=== PATIENT | female | born 1955 | race Caucasian/White ===

== ENCOUNTER → 2018-07-20 13:22 | Outpatient (BNVA) | payer MEDICARE, SELFPAY | PROVIDERS: Visit Provider Student in an Organized Health Care Education/Training Program | DX: G56.03 Carpal tunnel syndrome, bilateral upper limbs (principal) | CPT/HCPCS: 99214 ==

== ENCOUNTER 2018-07-25 11:07 | Outpatient (CLI) | payer MEDICARE, SELFPAY ==
[2018-07-25 13:24] LABS: CREATININE 0.73 mg/dL (0.55-1.02)
== END 2018-07-25 11:27 ==
PROVIDERS: Physician Assistant; PCP Family Medicine; Visit Provider Student in an Organized Health Care Education/Training Program
DX: D48.9 Neoplasm of uncertain behavior, unspecified (principal); Z13.89 Encounter for screening for other disorder
CPT/HCPCS: 36415; 82565

== ENCOUNTER 2018-07-28 00:53 | Outpatient (CLI) | payer MEDICARE, SELFPAY ==
[2018-07-28] MEDS: Gadoterate meglumine 20 ML VIAL 19 ML IVP (15:09)
--- NOTE | 2018-07-28 15:30 | DI.MRI_ITS ---
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 There are no priors for comparison. There is a soft tissue mass, which measures 1.8 cm craniocaudad x 1.0 cm AP x 1.4 cm transverse within the index finger. It lies within the anterolateral soft tissues. It abuts the flexor tendon at the level of the distal interphalangeal joint. The flexor tendon is homogeneously of low signal and appears intact. There is enhancement of the mass following contrast administration. The marrow signal is within normal limits. No osseous involvement is seen. No other masses are appreciated in the index finger. The tendons appear intact. IMPRESSION: A 1.8 cm mass in the volar soft tissues of the distal index finger. 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
== END 2018-07-28 01:13 ==
PROVIDERS: PCP Family Medicine; Visit Provider Student in an Organized Health Care Education/Training Program
DX: R22.31 Localized swelling, mass and lump, right upper limb (principal); D48.1 Neoplasm of uncertain behavior of connective and other soft tissue
CPT/HCPCS: 73220

== ENCOUNTER 2018-10-25 12:11 | Day surgery (SDC) | payer MEDICARE, SELFPAY ==
[2018-10-25] VITALS (7 sets, daily range): BP systolic 124–152; BP diastolic 57–90; PULSE 66–74; RESP 14–25; TEMP 36.1–36.6; O2SAT 93–98
[2018-10-25] MEDS: Lactated Ringers 1,000 ML 80 ML IV (12:55)
[2018-10-25] MEDS: Lidocaine 1% Pres-Free 5 ML VIAL (14:36)
--- NOTE | 2018-10-25 15:00 | SOFT_PTH ---
PATIENT: Fadia Beach LOC: [facility] U#:[id number] AGE/SX: 63/F ROOM: RE10/25/[address]: Otto Xie MD : [id number] BED: DIS: 10/25/2018 SPEC #: [id number] RECD: 10/25/18 17:08 STATUS: WALLY REAshwin #: [id number] EDWAR: 10/25/18 15:[address]: Otto Xie DEPT: Surgical Specimen RECD BY: Suyapa Stevens ENTERED: 10/25/18 17:11 SP TYPE: SOFT OTHR DR: Fela Quiroga Tissues: 1 - SOFT TISSUE MISC (INC. LIPOMA) 2 - SOFT TISSUE MISC (INC. LIPOMA) Procedures: GROSS AND MICRO LEVEL 4 Comments: [id number]
[2018-10-25] MEDS: Bupivacaine 0.25% Pres-Free 30 ML VIAL (15:05)
--- NOTE | 2018-10-25 15:33 | PDOC.DSDIS_ITS ---
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 Attending Provider: Otto Xie Primary Care Provider: Fela Quiroga Home Meds and New Rx's Prescriptions: New hydrocodone-acetaminophen 5-325 mg tablet 1 tab PO Q4H PRN (Reason: pain) Qty: 10 RF: 0 ibuprofen 600 mg tablet 600 mg PO TID PRNQty: 90 RF: 3 acetaminophen 500 mg capsule 1,000 mg PO Q8H PRN (Reason: pain) Qty: 90 RF: 0 Continue omeprazole magnesium [Prilosec OTC] 20 MG tablet,delayed release (DR/EC) 20 mg PO DAILY RF: 0 atorvastatin 40 MG tablet 40 mg PO DAILY RF: 0 metformin 1,000 MG tablet 1,000 mg PO DAILY RF: 0 levothyroxine 150 MCG tablet 150 mcg PO DAILY RF: 0 oxybutynin chloride 15 MG tablet extended release 24hr 15 mg PO DAILY RF: 0 citalopram [Celexa] 20 MG tablet 30 mg PO DAILY RF: 0 cholecalciferol (vitamin D3) [Vitamin D3] 5,000 unit Tablet 5,000 unit PO DAILY RF: 0 calcium carb-D3-mag ox-zinc ox [Jaylan Mag Zinc Plus D3] 333 mg-133 unit -133 mg- 5 mg Tablet 1 tab PO DAILY RF: 0 Discharge Instructions Additional Instructions: Activity: Only light activity to the hand. Keep the finger elevated and do not try to move too much in the beginning. Dressings: You should keep the initial dressing on for at least 3 days. The finger dressing may be removed at the same time as the carpal tunnel dressing. Keep it covered until your follow-up. Follow-up: 1 week Stand Alone Forms: Rojas Pan Tunnel Tod Cuellar (SHAYNA) Equipment/Supplies: Sling Activity:: Elevate Remove Dressings/Wound Care:: 72 hours Shower/Bathe:: 72 hours Diet:: Normal Diet Discharge Orders Discharge Orders: Discharge Order (Routine); Ordered 10/25/18 Ordered By: Otto Xie DS: Diagnosis Discharge Diagnosis (1) Giant cell tumor: Status: Acute (2) Carpal tunnel syndrome, bilateral: Status: Acute
--- NOTE | 2018-10-26 08:36 | ROE_ITS ---
REPORT OF OPERATIVE PROCEDURE DATE OF SURGERY October 25, 2018 PREOPERATIVE DIAGNOSES Right carpal tunnel syndrome, right recurrent finger mass, suspected giant cell tumor. POSTOPERATIVE DIAGNOSES Right carpal tunnel syndrome, right recurrent finger mass, suspected giant cell tumor. SURGERY Right endoscopic carpal tunnel release, excisional biopsy of right volar and dorsal index finger mass es. SURGEON Otto Xie M.D. CONSULTING MANAGER Sandra Godinez FINDINGS The transverse carpal ligament was notably tight. This was released with adequate expansion of the tr ansverse carpal ligament. The index finger had two separate lesions, one dorsal and one volar. Each w as excised in whole without having to violate the mass itself. The mass was solid and did appear to b e rather benign as it did not invade any other surrounding structures and came out quite easily. Both specimens were sent to Pathology and they are likely giant cell tumor recurrences. SPECIMENS 1. Right volar index finger mass. 2. Right dorsal index finger mass. ESTIMATED BLOOD LOSS Minimal. COMPLICATIONS None. DISPOSITION The patient was awakened from anesthesia and taken to the PACU in a stable condition. INDICATION FOR PROCEDURE Fadia is a 63-year old who has known bilateral carpal tunnel syndrome. She also has had a previous m ass to the right index finger, which was diagnosed previously as giant cell tumor tendon sheath. This was resected about four years ago; over the last four months it has returned. It has gotten to the p oint where it is stretching the skin causing skin irritation, as well as pain with use of the finger. She has tried conservative treatment options for the carpal tunnel, as well as for the finger. Howev er, these have failed, therefore, I recommended operative intervention. This consisted of an endoscop ic carpal tunnel release, as well as an excisional biopsy of the mass of the index finger. I discusse d the risks of the procedure to include bleeding, infection, pain, stiffness, recurrence, incomplete release, damage to nerves and vessels. Despite these risks, she elected to proceed. PROCEDURE DESCRIPTION Fadia was greeted in the preoperative holding area. Her identity was confirmed and the correct side was identified and marked. The consent was reviewed with the patient and signed. The history and phy sical was updated. The patient was taken back to the Operating Room where she was placed in the supine position. A nonst erile tourniquet was placed high up on the right arm. Prophylactic antibiotics in the form of cefazol in was administered. A timeout was performed for safe surgery. The right arm was then prepped with C hloraPrep and draped and in a standard fashion. The plan was initially for a MAC anesthetic; however, she was quite mobile even under a deep MAC anes thetic per Anesthesia and therefore was converted to a General anesthetic before proceeding for safet y. The surgical site for the endoscopic carpal tunnel released was injected with 1% lidocaine. The index finger had a digital block performed, with 1% lidocaine and 0.25% bupivacaine. I began with the endo scopic carpal tunnel release first. The limb was exsanguinated and the tourniquet was inflated to 275 mmHg. A 1-cm skin incision was made proximal to the distal wrist crease. This was incised sharply through t he skin only. Tenotomy scissors were used to bluntly dissect the soft tissues, leading down to the an tebrachial fascia fibers. These were split with the scissors and elevated with a skin hook. This intr oduced the entry into the carpal tunnel. Dilators were used to identify the carpal tunnel and hooked with a hamate and dilate the tunnel. The hook of the hamate seemed to be quite radial than usual. How ever, this was able to be dilated easily. The synovial elevator was used to elevate off the synovium and attachments to the undersurface of the transverse carpal ligament. Once this was performed the en doscope was inserted into the carpal tunnel. Excellent visualization for the proximal two thirds of t he transverse carpal ligament. There was a band, which seemed to be quite dense towards the distal ex tent. It was hard to visualize that it still was part of the transverse carpal ligament and therefore was not cut initially. The remainder two thirds was cut with excellent separation of transverse carp al fibers. With re-introduction of the scope, we saw that the transverse carpal ligament was well spa jared and the nerve was actually floating toward that space. What was interesting was that there was a crossing band, what appeared to be an almost tendinous origin at the very distal extent of the transv erse carpal ligament. Therefore no further release was performed. Irrigation flowed easily into this space and therefore it was deemed to be fully released. The proximal antebrachial fascia was then dis sected off of the median nerve and off of the overlying skin and this was transected. The wound was t hen irrigated. It was closed with a #4-0 Nylon. We then turned out attention to the finger. Starting with the volar mass, a Lilly-type incision was made overlying the volar mass. Skin flaps w ere raised and the mass was easily identifiable. Working in the tissue plane between the surrounding tissue and the mass, I was able to deliver this mass outside of the finger and work from outside in, detaching this from the underlying flexor tendon sheath. There was no notable attachment to any neuro vascular structures. There were no invasive properties. There was a clear capsule to the mass itself. It was firm and did have the appearance of a giant cell tumor. Once this was resected, it was taken to the back table and measured to be approximately 2 x 1.5 centimeters. It was then sent to Pathology . The wound was then irrigated. The skin was closed loosely with #4-0 Nylon. We then turned our attention to the dorsal skin mass. She had a previous incision from a dorsal finge r mass, so I used this incision over the dorsum of the finger. This was taken down sharply through th e skin only. Once again, blunt dissection was used to identify the mass. I was thinking this might torres ve been a ganglion cyst based on its location. However, it did seem to arise from the radial border of the distal extent of the extensor tendon. It was solid. A nice capsule was appreciated. It was jerica obular and while we were exposing it, we saw there was a second lobe, which was able to be delivered out of the wound. This mass was fully dissected and removed from the wound again without any signs of invasiveness or interaction with the neurovascular bundle. This was also brought to the back table w here it measured nearly 1 cm x about 6 mm. This was also sent to Pathology. The wound was again irrig ated. The skin was closed with two Nylon sutures. The wounds were dressed with Xeroform, followed by Tubegauz dressing over the finger, and gauze and Kerlix and Sal wrap over the wrist. The tourniquet w as deflated after 30 minutes. At the end of the case, all counts were correct.
== END 2018-10-25 16:50 | disposition home or self-care (01) ==
PROVIDERS: PCP Family Medicine; Visit Provider Student in an Organized Health Care Education/Training Program
PROC: 01N54ZZ Release Median Nerve, Percutaneous Endoscopic Approach (ICD-10-PCS; CPT 29848; principal; 2018-10-25 14:00)
PROC: (CPT 26160; 2018-10-25 14:00)
DX: D48.1 Neoplasm of uncertain behavior of connective and other soft tissue (principal); G56.01 Carpal tunnel syndrome, right upper limb
CPT/HCPCS: 26111; 29848; 88305; J0690; J1885; J2405; J3010; L3650

== ENCOUNTER 2018-10-29 09:10 | Outpatient (CLI) | payer MEDICARE, SELFPAY ==
[2018-10-29 10:08] LABS: HCT 39.7 % (36.0-46.0); HGB 13.2 g/dL (12.0-15.5); Mean Corp. HGB Concentration 33.2 g/dL (32.0-36.0); Mean Corpuscular Hemoglobin 27.7 pg (27.0-33.0); Mean Corpuscular Volume 83.4 fL (80-95); Mean Platelet Volume 10.3 fL (8.0-11.0); Platelet Count 298 x1000/uL (130-400); RBC 4.76 m/cumm (4.00-5.20); RBC Distribution Width 13.4 % (11.7-14.6); White Blood Cell Count 7.21 k/cumm (4.4-10.8)
[2018-10-29 10:51] LABS: FREE T4 1.56 ng/dL (0.76-1.46)
[2018-10-29 10:53] LABS: ALT 24 U/L (12-78); AST 17 U/L (15-37); Albumin 3.8 g/dL (3.4-5.0); Alkaline Phosphatase 101 U/L (46-116); Anion Gap 11.1 mmol/L (3-11); BUN 10 mg/dL (7-18); Bilirubin, Total 0.7 mg/dL (0.2-1.0); CO2 25.9 mmol/L (21.0-32.0); CREATININE 0.77 mg/dL (0.55-1.02); Calcium 9.2 mg/dL (8.5-10.1); Chloride 103 mmol/L (98-107); Cholesterol 193 mg/dL (50-200); Glucose 138 mg/dL (70-100); HDL Cholesterol 64 mg/dL (40-60); LDL CHOLESTEROL 98 mg/dL (<100); Potassium 4.5 mmol/L (3.5-5.1); Sodium 140 mmol/L (136-145); TSH 0.05 uIU/mL (0.358-3.74); Total Protein 7.6 g/dL (6.4-8.2); Triglyceride 231 mg/dL (30-150)
[2018-10-31 06:18] LABS: Hemoglobin A1C 7.2 % (4.5-6.2)
== END 2018-10-29 09:30 ==
PROVIDERS: PCP Family Medicine; Visit Provider Family Medicine
DX: E03.9 Hypothyroidism, unspecified (principal); E11.9 Type 2 diabetes mellitus without complications; R53.83 Other fatigue; E78.5 Hyperlipidemia, unspecified
CPT/HCPCS: 36415; 80053; 80061; 83721; 85027; 83036; 84439; 84443

== ENCOUNTER → 2018-11-02 08:26 | Outpatient (BNVA) | payer MEDICARE, SELFPAY | PROVIDERS: PCP Family Medicine; Referring Provider Family Medicine; Visit Provider Student in an Organized Health Care Education/Training Program | DX: D48.1 Neoplasm of uncertain behavior of connective and other soft tissue (principal); G56.03 Carpal tunnel syndrome, bilateral upper limbs; E11.9 Type 2 diabetes mellitus without complications; Z79.84 Long term (current) use of oral hypoglycemic drugs ==

== ENCOUNTER → 2018-11-18 10:12 | Outpatient (BNVA) | payer MEDICARE, SELFPAY | PROVIDERS: PCP Family Medicine; Referring Provider Family Medicine; Visit Provider Student in an Organized Health Care Education/Training Program | DX: D48.9 Neoplasm of uncertain behavior, unspecified (principal); G56.03 Carpal tunnel syndrome, bilateral upper limbs; E11.9 Type 2 diabetes mellitus without complications; Z79.84 Long term (current) use of oral hypoglycemic drugs ==

== ENCOUNTER → 2019-01-16 12:50 | Outpatient (BNVA) | payer MEDICARE, SELFPAY | PROVIDERS: PCP Family Medicine; Referring Provider Family Medicine; Visit Provider Student in an Organized Health Care Education/Training Program | DX: Z47.89 Encounter for other orthopedic aftercare (principal); G56.01 Carpal tunnel syndrome, right upper limb; E11.9 Type 2 diabetes mellitus without complications; Z79.84 Long term (current) use of oral hypoglycemic drugs; D48.7 Neoplasm of uncertain behavior of other specified sites ==

== ENCOUNTER 2019-02-21 10:00 | Outpatient (CLI) | payer MEDICARE, SELFPAY ==
--- NOTE | 2019-02-21 17:00 | DI.RAD_ITS ---
SYMPTOM/DIAGNOSIS: LT LEG PAIN, M79.605, FALL ONE MONTH AGO LEFT KNEE: Three views. No priors. The articular surfaces are well maintained. The bones are intact and normally mineralized. There is a tiny, well corticated osseous fragment medial to the medial femoral condyle likely reflecting old injury. There is a small enthesophyte at the superior aspect of the patella. The soft tissues are unremarkable. IMPRESSION: No acute abnormality. LEFT LEG: Two views. The tibial plateau is included on the xray of the knee performed the same day. No bone or joint abnormality is identified. The soft tissues are unremarkable. IMPRESSION: Negative examination.
== END 2019-02-21 10:20 ==
PROVIDERS: PCP Family Medicine; Visit Provider Nurse Practitioner Family
DX: M79.605 Pain in left leg (principal); M25.562 Pain in left knee
CPT/HCPCS: 73562; 73590

== ENCOUNTER 2019-03-14 10:13 | Emergency (ER) | payer MEDICARE, SELFPAY ==
[2019-03-14 10:21] VITALS: BP 118/72; PULSE 78; RESP 16; TEMP 36.7; O2SAT 95
--- NOTE | 2019-03-14 10:38 | W.ED.GENAD ---
Discharge Plan Disposition Patient Disposition: HOME Condition: Good Discharge Details Chief Complaint: Laceration Clinical Impression: Laceration Primary Care Provider: Fela Quiroga ED Provider: Kody Godfrey Home Meds and New Rx's Prescriptions: No Action Prilosec OTC 20 MG tablet,delayed release (DR/EC) 20 mg PO DAILY RF: 0 atorvastatin 40 MG tablet 40 mg PO DAILY RF: 0 metformin 1,000 MG tablet 1,000 mg PO DAILY RF: 0 levothyroxine 150 MCG tablet 150 mcg PO DAILY RF: 0 oxybutynin chloride 15 MG tablet extended release 24hr 15 mg PO DAILY RF: 0 citalopram [Celexa] 20 MG tablet 30 mg PO DAILY RF: 0 cholecalciferol (vitamin D3) [Vitamin D3] 5,000 unit Tablet 5,000 unit PO DAILY RF: 0 Jaylan Mag Zinc Plus D3 333 mg-133 unit -133 mg-5 mg Tablet 1 tab PO DAILY RF: 0 hydrocodone-acetaminophen 5-325 mg tablet 1 tab PO Q4H PRN (Reason: pain) Qty: 10 RF: 0 ibuprofen 600 mg tablet 600 mg PO TID PRNQty: 90 RF: 3 acetaminophen 500 mg capsule 1,000 mg PO Q8H PRN (Reason: pain) Qty: 90 RF: 0 Discharge Instructions Instructions: Laceration (ED), Care For Your Absorbable Stitches (ED) Additional Instructions: Please leave the dressing on for 24 hours, then you may remove and begin cleaning the wound very gently at least twice a day with soap and water. Do not directly soak the area. Watch for any signs of infection and return if any increasing redness, swelling, pain, drainage. If you notice any worsening of your symptoms, or any new symptoms such as vomiting, diarrhea, fever, chills, shortness of breath, chest pain, numbness, weakness, or fainting , please return immediately to the emergency department for reevaluation. Please follow up with your primary care provider as soon as possible for reassessment and reevaluation. As always, it was a pleasure participating in your medical care today. Referrals: Fela Quiroga [Primary Care Provider] - Medical Decision Making This is a very pleasant 64-year-old female who presents for laceration on her nondominant hand in the webspace between her second and third digit. Small 1 cm laceration was present. Minimal active bleeding, no evidence of tendon involvement. Patient demonstrates excellent flexion extension abduction and abduction of the second and third digit. Normal two-point discrimination distal to the injury site. Tetanus was updated 2 years ago. Significant wound cleaning was performed with copious amounts of chlorhexidine and normal saline as well as vigorous scrubbing. The area was anesthetized with 1% lidocaine without epinephrine. Excellent anesthesia was achieved. 5 simple interrupted sutures were placed with 5-0 chromic gut. Patient tolerated procedure well. Dermabond was placed over the sutures afterwards. The fingers were then taped together to prevent any significant tension by spreading of the fingers. She remains neurovascularly intact post procedure. Patient will be discharged home with close follow-up. We discussed red flags which to return the patient understands. I have extensively reviewed the treatment plan and discharge instructions with the patient. I have addressed all patient concerns at this time. The patient was made aware of what symptoms to monitor for that would warrant a return to the emergency department. Discussed the plan with the patient, they demonstrate verbal understanding and agreement with our assessment and plan at this time. HPI General Date/Time Provider Initiated Documentation: 03/14/19 10:13. HPI Narrative: This is a 64-year-old female with past medical history of giant cell tumor on her right hand which was surgically removed by Dr. Xie, she is right-hand dominant. She presents today with laceration between the webspace of the second and third digit. It occurred roughly an hour ago while she was using a new set of clean knives. Her tetanus is up-to-date and was updated 2 years ago. She denies any associated numbness, tingling or weakness. She denies any other complaints. No other modifying factors. She states that she currently has no pain whatsoever. Related Data Home Medications Medication Instructions Recorded Confirmed citalopram [Celexa] 30 mg PO DAILY 06/12/14 01/16/19 Prilosec OTC 20 mg PO DAILY 12/20/14 01/16/19 atorvastatin 40 mg PO DAILY tab-cap 06/01/18 01/16/19 levothyroxine 150 mcg PO DAILY tab-cap 06/01/18 01/16/19 metformin 1,000 mg PO DAILY tab-cap 06/01/18 01/16/19 oxybutynin chloride 15 mg PO DAILY tab-cap 06/01/18 01/16/19 Jaylan Mag Zinc Plus D3 1 tab PO DAILY 10/25/18 01/16/19 acetaminophen 1,000 mg PO Q8H PRN #90 cap 10/25/18 01/16/19 cholecalciferol (vitamin D3) 5,000 unit PO DAILY 10/25/18 01/16/19 [Vitamin D3] hydrocodone-acetaminophen 1 tab PO Q4H PRN #10 tab 10/25/18 01/16/19 ibuprofen 600 mg PO TID PRN #90 tab 10/25/18 01/16/19 Previous Rx's Medication Instructions Recorded acetaminophen 1,000 mg PO Q8H PRN #90 cap 10/25/18 hydrocodone-acetaminophen 1 tab PO Q4H PRN #10 tab 10/25/18 ibuprofen 600 mg PO TID PRN #90 tab 10/25/18 Allergies Allergy/AdvReac Type Severity Reaction Status Date / Time No Known Drug Allergies Allergy Unverified 03/14/19 10:39 Review of Systems Review of Systems All systems reviewed & are unremarkable except as noted in HPI and below PFSH Medical History Giant cell tumor tendon (Acute) Depression (Chronic) Diabetes (Chronic) GERD (gastroesophageal reflux disease) (Chronic) Hyperlipidemia (Chronic) Hypothyroid (Chronic) Social History Smoking/Tobacco Use Status: Never Drug use: Never Exam Narrative Exam Narrative: 1.Const: Well-nourished, Well-developed, appearing stated age 2.Eyes: PERRL, no conjunctival injection, and symmetrical lids. 3.ENT: Atraumatic external nose and ears. Moist MM. Neck: Symmetric, trachea midline, No thyromegaly. 4.CVS: +S1/S2, No murmurs or gallops. Peripheral pulses 2+ and equal in all extremities. Brisk capillary refill in all extremities. 5.RESP: Unlabored respiratory effort. Clear to auscultation bilaterally. No wheezes rales or rhonchi 6.GI: Soft, Nontender/Nondistended, No hepatosplenomegaly. No guarding or rebound. 7.MSK: Normocephalic/Atraumatic, Extremities w/o deformity or ttp No cyanosis or clubbing, Normal movement of all extremities. Left hand: Symmetrically palpable radial and ulnar pulses. Capillary refill less than 2 seconds to all digits. Intact sensation to light touch of the radial, median and ulnar nerves demonstrated by testing in the dorsal web space of the thumb, the distal palmar aspect of the index finger, and the lateral surface of the fifth finger. 2 point discrimination intact to 5mm (up to 6mm can be normal in digits 3-5) of discrimination in the affected digit. 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 Intact recurrent median nerve as demonstrated by ability to move thumb fully through opposition, abduction and flexion. No snuffbox tenderness. 8.Skin: Warm, Dry. Small 1 cm laceration between the webspace between her second and third digit on the left hand. Exploration reveals no evidence of tendon involvement. Minimal active bleeding. 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 Sensation grossly intact, no focal neurologic deficits. 10.Psych: (AAO) x3. Appropriate mood and affect
== END 2019-03-14 10:50 | disposition home or self-care (01) ==
PROVIDERS: Emergency Provider Student in an Organized Health Care Education/Training Program; PCP Family Medicine
DX: S61.412A Laceration without foreign body of left hand, initial encounter (principal); W26.0XXA Contact with knife, initial encounter
CPT/HCPCS: 12001

== ENCOUNTER 2019-12-29 03:40 | Outpatient (CLI) | payer MEDICARE, SELFPAY ==
--- NOTE | 2019-12-29 | DI.RAD_ITS ---
EXAM: XR CHEST 2V PA LATERAL INDICATION: HX OF POSITIVE PPD, Z87.898. COMPARISON: No exams were available for comparison TECHNIQUE: 2D digital imaging was performed. FINDINGS: Heart size and pulmonary vasculature are within normal limits. There is scarring in the lingula. No focal infiltrates, effusions or pneumothoraces are present. There are degenerative changes seen in the spine. IMPRESSION: No acute pulmonary process.
== END 2019-12-29 04:00 ==
PROVIDERS: PCP Family Medicine; Visit Provider Family Medicine
DX: R76.11 Nonspecific reaction to tuberculin skin test without active tuberculosis (principal)
CPT/HCPCS: 71046

== ENCOUNTER 2020-07-09 00:29 | Outpatient (CLI) | payer MEDICARE, SELFPAY ==
--- NOTE | 2020-07-09 | DI.MAMMO_ITS ---
EXAM: MAMMO SCREENING CLINICAL HISTORY: SCREENING, Z12.31 TECHNIQUE: Mammograms were interpreted according to the usual protocol including computer analysis w [employer] CAD system, tomosynthesis and C-view imaging. COMPARISON: FINDINGS: The breasts are heterogeneously dense. No dominant mass or clumped microcalcification is identified in either breast. Current examination is compared with previous examinations including March 2017 and there is question of increased prominence of a focal area of asymmetric density projected in the supe rior central portion of the left breast MLO view in comparison with previous studies. Additional martha mographic views of this area are requested to include MLO and CC spot compression view of the left br east. IMPRESSION: Additional mammographic views of the left breast requested as described above. Breast ultrasound may be indicated as well depending on the results of the additional mammographic views. BI-RADS Cat 0 - Assessment Incomplete: Need additional imaging evaluation Breast Density - Category C - Heterogeneously dense
== END 2020-07-09 00:49 ==
PROVIDERS: PCP Family Medicine; Visit Provider Family Medicine
DX: Z12.31 Encounter for screening mammogram for malignant neoplasm of breast (principal); R92.2 Inconclusive mammogram
CPT/HCPCS: 77063; 77067

== ENCOUNTER 2020-07-12 04:06 | Outpatient (CLI) | payer MEDICARE, SELFPAY ==
--- NOTE | 2020-07-12 | DI.MAMMO_ITS ---
EXAM: MG MAMMO SCREEN CALL BACK UNI CLINICAL HISTORY: F/U MAMMO, ? INCREASED PROMINENCE ASYMMETRIC DENSITY SUPER CENT LT BREAST TECHNIQUE: Mammograms were interpreted according to the usual protocol including computer analysis w [employer] CAD system, tomosynthesis and C-view imaging. COMPARISON: FINDINGS: Additional mammographic views of the left breast and left breast ultrasound are interpreted conjuncti on. These examinations were obtained evaluate area of asymmetric density in the upper outer quadrant of the left breast seen on recent mammogram. Additional mammographic views fail to show a discrete mass. Breast ultrasound shows no evidence of a mass or cyst in this region. IMPRESSION: No specific evidence of malignancy at this time. Knee follow-up unilateral left breast mammogram re quested in 6 months. BI-RADS Category 3 - 6 month - Probably Benign Finding: Recommend follow-up mammography in 6 months Breast Density - Category C - Heterogeneously dense
== END 2020-07-12 04:26 ==
PROVIDERS: PCP Family Medicine; Visit Provider Family Medicine
DX: R92.8 Other abnormal and inconclusive findings on diagnostic imaging of breast (principal); R92.2 Inconclusive mammogram
CPT/HCPCS: 76642; 77063; 77067

== ENCOUNTER → 2020-08-16 10:00 | Outpatient (BNVA) | payer MEDICARE, SELFPAY | PROVIDERS: PCP Family Medicine; Referring Provider Family Medicine; Visit Provider Physical Therapy Assistant | DX: R69 Illness, unspecified (principal) ==

== ENCOUNTER 2020-12-09 16:03 | Inpatient (IN) | payer MEDICARE, SELFPAY ==
[2020-12-09] VITALS (38 sets, daily range): BP systolic 108–130; BP diastolic 53–69; PULSE 59–68; RESP 12–22; TEMP 36.4; O2SAT 92–99
--- NOTE | 2020-12-09 16:00 | RT.EKG_ITS ---
APPROVED REPORT Exam: Resting ECG Patient Location: E HR:65 bpm ECG Measurements Heart Rate 65 AXIS NV 232 P 70 QRSd 92 QRS 53 QT [id number] T [id number] QTc 0 Conclusion Sinus rhythm...normal P axis, V-rate 60- 99 Prolonged NV interval...NV >220, V-rate 50- 90 Low voltage, precordial leads...precordial leads <1.0mV I have reviewed and interpreted ECG and agree with software generated interpretation.
--- NOTE | 2020-12-09 16:15 | DI.RAD_ITS ---
EXAM: XR PORTABLE CHEST AP INDICATION: overdose. COMPARISON: CR XR CHEST 2V PA LATERAL from 12/29/2019 TECHNIQUE: 2D digital imaging was performed. FINDINGS: The exam is limited by poor pulmonary inflation. The heart size is within normal limits for projecti on. Leads overlie the chest. There are no gross infiltrates. No effusions are seen. There is no e vidence of pneumothorax. IMPRESSION: Limited exam due to poor pulmonary inflation. No acute abnormality. DATA REPOSITORY: RADIATION DOSE DELIVERED:
--- NOTE | 2020-12-09 16:15 | RT.EKG_ITS ---
APPROVED REPORT Exam: Resting ECG Patient Location: E HR:61 bpm ECG Measurements Heart Rate 61 AXIS NH 226 P 63 QRSd 92 QRS 53 QT [id number] T [id number] QTc 0 Conclusion Sinus rhythm...normal P axis, V-rate 60- 99 Prolonged NH interval...NH >220, V-rate 50- 90 Low voltage, precordial leads...precordial leads <1.0mV I have reviewed and interpreted ECG and agree with software generated interpretation.
[2020-12-09 16:29] LABS: BE -3 mmol/L (-2-3); HCO3 24 mmol/L (22-26); pCO2 45 mmHg (35-45); pH 7.33 (7.35-7.45); pO2 93 mmHg (80-105); sO2 95 % (95-98); tCO2 22 mmol/L (23-27)
--- NOTE | 2020-12-09 16:30 | DI.RAD_ITS ---
EXAM: XR PELVIS AP INDICATION: ams. COMPARISON: No exams were available for comparison TECHNIQUE: 2D digital imaging was performed. FINDINGS: The exam is limited by portable technique and patient body habitus. There is no gross evidence of fr acture. No hip dislocation is seen. The SI joints and pubic symphysis are not widened. Calcified f ibroids are noted. The bowel gas pattern is unremarkable. IMPRESSION: Limited exam. No gross evidence of an acute abnormality. DATA REPOSITORY: RADIATION DOSE DELIVERED:
--- NOTE | 2020-12-09 16:32 | DI.CT_ITS ---
EXAM: CT HEAD CERVICAL SPINE WO CLINICAL HISTORY: ams. TECHNIQUE: Imaging Protocol: Axial computed tomography images with coronal and sagittal reformatted images were created and reviewed COMPARISON: No exams were available for comparison FINDINGS: Head CT Ventricles and Extra axial spaces: Normal in size and morphology for the patient's age. Hemorrhage: None. Cerebral parenchyma: Normal. Midline shift: None. Brainstem/Cerebellum: Normal. Calvarium: Normal. Visualized Paranasal sinuses/Mastoids: Clear. Soft tissues: Small amount of air seen in the soft tissues anterior to the right maxillary sinus. No adjacent fracture or drainable collection is seen. Cervical Spine CT BONES: Vertebral body heights are maintained. Alignment is normal. There is no evidence of acute frac ture. Degenerative disc changes and facet degenerative changes are seen . SOFT TISSUES: No paraspinal hematoma. The airway appears intact. Soft tissue attenuation mass in the left parotid gland measuring 2.2 x 1.6 cm. Findings could represent a hematoma versus neoplasm. Cl inical correlation is recommended. No adenopathy is seen. The thyroid has been resected. No pneumothorax is seen at the lung apices. IMPRESSION: Head CT: No acute intracranial abnormality. Soft tissue air in the right cheek. No hematoma or drai nable collection. No adjacent fracture. C-spine CT: Degenerative changes, no fracture. 2.2 centimeter left parotid mass. Biopsy could be co nsidered. RADIATION DOSE DELIVERED: LINK-TO-SR Total DLP DATA REPOSITORY: All CT scans at this facility are submitted to the National Radiology Data Registry (NRDR) Dose Index Registry (DIR) with the [employer] (ACR). RADIATION OPTIMIZATION: All CT scans at this facility use at least one of these dose optimization te chniques: automated exposure control; mA and/or kV adjustment per patient size (includes targeted exa ms where dose is matched to clinical indication); or iterative reconstruction.
[2020-12-09 16:33] LABS: FIO2L 2 L; Site Right Radial
--- NOTE | 2020-12-09 16:39 | NUR.NOTE ---
Nursing Note: unable to fully assess behavioral assessment due to patient being somlonent & asleep. Will answer questions when encouraged
[2020-12-09 16:41] LABS: Abs Immature Grans 0.01 10^3/uL (0.0-0.06); Absolute Basophil Count 0.03 10^3/uL (0.0-0.2); Absolute Eosinophil Count 0.07 10^3/uL (0.0-0.7); Absolute Lymphocyte Count 1.63 10^3/uL (1.2-3.4); Absolute Monocyte Count 0.35 10^3/uL (0.1-0.8); Basophils % 0.5; Eosinophils % 1.2; HCT 40.5 % (36.0-46.0); Immature Grans % 0.2; Lymphocytes % 27.7; MCH 27.6 pg (27.0-33.0); MCHC 32.1 % (32.0-36.0); MPV 10.1 fL (8.0-11.0); Monocytes % 5.9; Neutrophils % 64.5; Nucleated RBC 0 %; Platelet Count 245 10^3/uL (130-400); RBC 4.71 10^6/uL (3.93-5.22); RDW 13.4 % (11.7-14.6); RDW-SD 42.2 fL; WBC 5.89 10^3/uL (4.4-10.8)
[2020-12-09] MEDS: Normal Saline 1,000 ML 1000 ML IV (16:49)
--- NOTE | 2020-12-09 16:49 | ED.GENADUL_ITS ---
Discharge Plan Discharge Details Chief Complaint: OD/Poison Admit Date/Time: 12/09/20 18:34 Admit Provider: Albaro Liu Attending Provider: Albaro Liu Primary Care Provider: Fela Quiroga ED Provider: Suyapa Cat Medical Decision Making <MARY GRACE Malcolm - Last Filed: 12/09/20 19:13> CT brain and cervical spine do not show acute pathology, unlikely subdural hematoma Suspect intoxicated from trazodone and Ativan consumption Maintaining airway, oxygenation 98% on room air, no indication for intubation at this time, GCS 13 initially, at time of reevaluation, GCS 15 Full CODE STATUS per CT head and cervical spine interpreted by virtual radiology Chest x-ray and pelvis do not show acute pathology per radiology interpretation I reviewed Poison control was consulted by my attending physician, Dr. Aguilar and patient will need 8 hours of monitoring Empirically given 2 g of magnesium with normal-appearing EKG, concern for prolongation of QTC Hypokalemia, 3.1, given 20 mEq of IV potassium out of concern for swallowing safety Patient agreeable to admission at this time, will be maintained on suicide watch this was an attempt to harm self, patient confirms Case discussed with and examined by my attending physician, Dr. Yusuf Case discussed with and admitted by Dr. Liu, hospitalist Differential Diagnosis Differential Diagnosis: Drug overdose, suicide attempt, toxic metabolic encephalopathy, subdural he Medical Records Medical records reviewed: Yes I reviewed the patient's medical records. Lab Data Lab results reviewed: Yes I reviewed the patient's lab results. <Brianna Aguilar DO - Last Filed: 12/09/20 22:31> Note not completed by me. I have seen and examined this patient. I discussed case and reviewed note with the PA and I agree with plan and note as documented. HPI <MARY GRACE Malcolm - Last Filed: 12/09/20 19:13> This 65-year-old female presents with reported intentional overdose. Patient has reportedly been quite depressed over the course of the past week.Stated Complaint: OD/Poison found patient in the past have, sitting upright and not submerged in water very sleepy. He called 911. He found 2 bottles on the ground, 1 for trazodone 150 mg but had 90 tablets 1 week for Ativan, half milligram tablets, 28. He is unsure as to how much medication was in the bottle. He did the patient was last known well 2 hours prior to arrival. He denies any known injuries. He states she was unable to get her out of the bathtub. He denies prior history of suicide attempt. Patient denies any pain complaints. She does admit that she was trying to harm herself. She does state that she check this with medication when asked. She denies any additional medication use today. She is a poor historian secondary to encephalopathy, likely toxic. I did obtain some history from medics and the patient's as patients with not able to give a comprehensive history. He denies any anticoagulation. Blood sugar per EMS was normal . General Date/Time Provider Initiated Documentation: 12/09/20 16:15 . Related Data Home Medications Medication Instructions Recorded Confirmed atorvastatin 40 mg PO DAILY tab-cap 06/01/18 12/09/20 levothyroxine 150 mcg PO DAILY tab-cap 06/01/18 12/09/20 metformin 1,000 mg PO DAILY tab-cap 06/01/18 12/09/20 oxybutynin chloride 15 mg PO DAILY tab-cap 06/01/18 12/09/20 Jaylan Mag Zinc Plus D3 1 tab PO DAILY 10/25/18 12/09/20 acetaminophen 1,000 mg PO Q8H PRN #90 cap 10/25/18 12/09/20 cholecalciferol (vitamin D3) 5,000 unit PO DAILY 10/25/18 12/09/20 [Vitamin D3] ibuprofen 600 mg PO TID PRN #90 tab 10/25/18 12/09/20 escitalopram oxalate 20 mg tablet 30 mg PO DAILY tab 07/02/20 12/09/20 omeprazole 20 mg PO DAILY 12/09/20 12/09/20 Previous Rx's Medication Instructions Recorded acetaminophen 1,000 mg PO Q8H PRN #90 cap 10/25/18 ibuprofen 600 mg PO TID PRN #90 tab 10/25/18 Allergies Allergy/AdvReac Type Severity Reaction Status Date / Time No Known Drug Allergies Allergy Unverified 12/09/20 16:13 General Stated Complaint: OD/Poison MARJ: 2 <Brianna Aguilar DO - Last Filed: 12/09/20 22:31> This 65-year-old female presents with reported intentional overdose. Patient has reportedly been quite depressed over the course of the past week.Stated Complaint: OD/Poison found patient in the past have, sitting upright and not submerged in water very sleepy. He called 911. He found 2 bottles on the ground, 1 for trazodone 150 mg but had 90 tablets 1 week for Ativan, half milligram tablets, 28. He is unsure as to how much medication was in the bottle. He did the patient was last known well 2 hours prior to arrival. He denies any known injuries. He states she was unable to get her out of the bathtub. He denies prior history of suicide attempt. Patient denies any pain complaints. She does admit that she was trying to harm herself. She does state that she check this with medication when asked. She denies any additional medication use today. She is a poor historian secondary to encephalopathy, likely toxic. I did obtain some history from medics and the patient's as patients with not able to give a comprehensive history. He denies any anticoagulation. Blood sugar per EMS was normal . 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 Hyperlipidemia Hypothyroid Insomnia Multinodular goiter Obesity Type 2 diabetes mellitus Social History Smoking/Tobacco Use Status: Never Smoking risk assessment performed?: Yes Drug use: Never Current gender identity: female Additional Social history: unable to assess Exam <MARY GRACE Malcolm - Last Filed: 12/09/20 19:13> Const General: lethargic HENMT Head: normal to inspection Eyes Pupils: PERRL Neck Other: No visible evidence of trauma Chest Chest: normal inspection of the chest Resp Effort & Inspection: normal respiratory effort Auscultation: clear to auscultation bilaterally Other: Lungs clear to auscultation bilaterally, no crepitus Cardio Rate: regular rate Rhythm: regular rhythm GI Inspection: normal to inspection Other: No tenderness with palpation in all 4, Skin General skin exam: no rashes or lesions noted Neuro General: patient alert Cranial Nerves: CN's II-XI intact bilaterally and PERRL Pupils: Normal pupillary reactivity/response: bilateral Extrem General: normal to inspection Psych Appearance: disheveled Mental Status: other Speech and Movement: slurred speech Thought Content: suicidality Course <MARY GRACE Malcolm - Last Filed: 12/09/20 19:13> Vital Signs Vital signs: Vital Signs Temperature 36.4 C L 12/09/20 16:05 Pulse 66 12/09/20 16:05 Respiratory Rate 15 12/09/20 16:05 Blood Pressure 121/61 12/09/20 16:05 Pulse Oximetry 99 12/09/20 16:05 Temperature 36.4 C L 12/09/20 16:05 Temperature Source Tympanic 12/09/20 16:05 Pulse 66 12/09/20 16:05 Respiratory Rate 13 12/09/20 16:10 Respiratory Effort Non-Labored 12/09/20 16:10 Respiratory Depth Normal 12/09/20 16:10 Respiratory Pattern Normal 12/09/20 16:10 Blood Pressure 121/61 12/09/20 16:05 Pulse Oximetry 98 12/09/20 16:41 Oxygen Delivery Method Nasal Cannula 12/09/20 16:41 Oxygen Flow Rate 2 12/09/20 16:41 End Tidal Co2 36 12/09/20 16:05 Lab/Test Results Lab/Test Results: Laboratory Tests Range/Units 12/09/20 12/09/20 12/09/20 16:23 16:30 16:30 WBC (4.4-10.8) 10^3/uL 5.89 RBC (3.93-5.22) 10^6/uL 4.71 Hgb (11.2-15.7) g/dL 13.0 Hct (36.0-46.0) % 40.5 MCV (80-95) fL 86.0 MCH (27.0-33.0) pg 27.6 MCHC (32.0-36.0) % 32.1 RDW (11.7-14.6) % 13.4 Plt Count (130-400) 10^3/uL 245 MPV (8.0-11.0) fL 10.1 Immature Gran % 0.2 Neutrophils % 64.5 Lymphocytes % 27.7 Monocytes % 5.9 Eosinophils % 1.2 Basophils % 0.5 Nucleated RBC % % 0 Absolute Neutrophils (1.2-6.7) 10^3/uL 3.80 Absolute Lymphocytes (1.2-3.4) 10^3/uL 1.63 Absolute Monocytes (0.1-0.8) 10^3/uL 0.35 Absolute Eosinophils (0.0-0.7) 10^3/uL 0.07 Absolute Basophils (0.0-0.2) 10^3/uL 0.03 ABG Sample Site Right radial ABG pH (7.35-7.45) 7.33 L ABG pCO2 (35-45) mmHg 45 ABG pO2 (80-105) mmHg 93 ABG HCO3 (22-26) mmol/L 24 ABG Total CO2 (23-27) mmol/L 22 L ABG O2 Saturation (95-98) % 95 ABG Base Excess (-2-3) mmol/L -3 L Oxygen Liter Flow L 2 Sodium Cancelled Potassium Cancelled Chloride Cancelled Carbon Dioxide Cancelled Anion Gap Cancelled BUN Cancelled Creatinine Cancelled Estimated GFR/1.73 m2 Cancelled Glucose Cancelled Calcium Cancelled Total Bilirubin Cancelled AST Cancelled ALT Cancelled Alkaline Phosphatase Cancelled Total Protein Cancelled Albumin Cancelled
[2020-12-09] MEDS: MAGNESIUM SULFATE 2 GM/50 ML BAG IVPB (16:50)
[2020-12-09 16:59] LABS: Source Nasopharynx
--- NOTE | 2020-12-09 17:00 | RESPIRATORY ---
Rt called to ER in concerns to OD patient found in bathtub full of water, arrived on 2L NC. RT set up suction and placed patient on NC with CO2 monitoring. Patient very sleepy but easy to arouse when spoken to. ABG pulled per DR request, results 7.33/45/93/24 on 2L NC. RT stayed to assist team for about 30-45mins then Dr was ok with RT leaving as patient was stable. Before RT left, patient was titrated to 1L NC per ABG and nursing was questioned if fine. RT left and ER was going to call if airway status changed in patient.
--- NOTE | 2020-12-09 17:04 | PDOC.CMSAFED ---
- If Service Date Differs Date of service: 12/09/20 Time of Service: 17:04 Care Management Safety Plan Chief Complaint: Fadia is a 65 year old female who resides in [place] with her , Caleb. Chart review reveals Fadia was found by her in the bathtub at home with empty bottles of trazodone and lorazepam nearby. Four small bottles of champagne were also found empty in the bedroom. dialed 9-1-1 and Fadia was subsequently transported to [facility] via EMS. Fadia reportedly has no history of suicide attempts. reports to ED provider that she has been quite depressed over the course of the past week. Fadia also admits to ED provider that she intended to hurt herself by taking the overdose of medication. CM will respond to ED to assess patient after patient has been medically cleared and assessed by screener. If screener deems patient meets criteria for psychiatric stabilization CM will facilitate interdepartmental huddle with [facility] screener for safety planning considerations and meet with patient to review [facility] policy and safety plan, establish individual wishes for treatment and maintain patient rights. In the interim; please note safety plan below to guide patient care while awaiting further assessment in the ED. SAFETY PLAN: 1. Will remain on suicide precautions and in paper clothes. 2. Will remain in room under direct supervision of one-on-one staff at all times provided by CPS[employer], TABLE AND DESK FINISHER, MIG WELDER platform worker. 3. May have paper cups, plates, finger foods as well as a cardboard spoon with which to eat meals. 4. Follow [facility] Management of the Admitted Behavioral Health Patient policy. 5. Comfort bath system only. 6. No personal belongings 7. No visitors per [facility] Covid policy. 8. No phone privileges at this time. 9. Due to VOLUNTARY status, if patient wishes to leave [facility], staff will contact [facility] Crisis Screener ([phone]) and On-Call Extension Forester ([phone]) as soon as possible. In the event of elopement, notify [facility] Police ([phone]). If deemed appropriate for inpatient psychiatric care, safety plan will be established with patient, and care team, to adhere to patient goals, identify restrictions based on behavioral status, address nutrition, and determine allowed personal belongings, tools for hygiene and personal care. As well plan will determine level of activity including ambulation, level of supervision, visitors, and determine privileges based on level of acuity, behaviors and level of engagement by patient.
[2020-12-09 17:09] LABS: Salicylate < 2.8 mg/dL (2.8-20.0)
[2020-12-09 17:10] LABS: ALT 30 U/L (14-59); AST 18 U/L (15-37); Alkaline Phosphatase 90 U/L (46-116); Anion Gap 9.6 mmol/L (3-11); BUN 11 mg/dL (7-18); Bilirubin, Total 0.3 mg/dL (0.2-1.0); CO2 26.4 mmol/L (21.0-32.0); CREATININE 0.76 mg/dL (0.55-1.02); Calcium 8.5 mg/dL (8.5-10.1); Chloride 101 mmol/L (98-107); ETHANOL BLOOD 73.5 mg/dL (<3); Glucose 118 mg/dL (74-106); Magnesium 1.8 mg/dL (1.8-2.4); Potassium 3.1 mmol/L (3.5-5.1); Sodium 137 mmol/L (136-145); Total Protein 7.6 g/dL (6.4-8.2); Troponin I < 0.05 ng/mL (<0.06)
[2020-12-09 17:11] LABS: Acetaminophen < 2 ug/mL (10-30)
--- NOTE | 2020-12-09 17:16 | PDOC.CMSAFED ---
- If Service Date Differs Date of service: 12/09/20 Time of Service: 17:21 Care Management Safety Plan Status: Voluntary Chief Complaint: Suspected intentional overdose. History of depression, insomnia. Once medically cleared Fadia will be assessed by screener. If screener deems patient meets criteria for psychiatric stabilization CM will facilitate interdepartmental huddle with [facility] screener for safety planning considerations and meet with patient to review [facility] policy and safety plan, establish individual wishes for treatment and maintain patient rights. At this time, Fadia is not able to engage per documentation. In the interim; please note safety plan below to guide patient care while awaiting further assessment in the ED. SAFETY PLAN: 1. Will remain on suicide precautions and in paper clothes. 2. Will remain in room under direct supervision of one-on-one staff at all times provided by DANIEL, OCEANOLOGIST ferryboat operator. 3. May have paper cups, plates, finger foods as well as a cardboard spoon with which to eat meals. 4. Follow [facility] Management of the Admitted Behavioral Health Patient policy. 5. Comfort bath system only. 6. No personal belongings 7. No visitors. 8. Phone contact limited to legal contact at this time. 9. Due to VOLUNTARY status, if patient wishes to leave [facility], staff will contact [facility] Crisis Screener ([phone]) and On-Call Nut Roaster ([phone]) as soon as possible. In the event of elopement, notify [facility] Police ([phone]). If deemed appropriate for inpatient psychiatric care, safety plan will be established with patient, and care team, to adhere to patient goals, identify restrictions based on behavioral status, address nutrition, and determine allowed personal belongings, tools for hygiene and personal care. Plan will determine level of activity including ambulation, level of supervision, visitors, and determine privileges based on level of acuity, behaviors and patient's level of engagement.
--- NOTE | 2020-12-09 17:35 | DI.VRAD_ITS ---
PROCEDURE INFORMATION: Exam: Portable XR Chest, 1 View Exam date and time: 12/09/2020 5:23 PM Age: 65 years old Clinical indication: Condition or disease; Other: Overdose TECHNIQUE: Imaging protocol: Portable XR of the chest Views: 1 view. COMPARISON: CR XR CHEST 2V PA LATERAL 12/29/2019 8:30 AM FINDINGS: Lungs: There is a poor inspiratory effort. There is mild pulmonary vascular congestion. Pleural space: Unremarkable. No pleural effusion. No pneumothorax. Heart/Mediastinum: Unremarkable. No cardiomegaly. Bones/joints: There are degenerative changes of the thoracic spine. IMPRESSION: Poor inspiratory effort. Mild pulmonary vascular congestion. Osseous findings as above. Dictated and Authenticated by: Varinder Haynes MD. Ordering:ARTURO Dale MD
--- NOTE | 2020-12-09 17:36 | DI.VRAD_ITS ---
PROCEDURE INFORMATION: Exam: Portable XR Pelvis Exam date and time: 12/09/2020 5:23 PM Age: 65 years old Clinical indication: Injury or trauma; Blunt trauma (contusions or hematomas); Bilateral; Pelvic region; Patient HX: ? Fall, AMS TECHNIQUE: Imaging protocol: Portable XR pelvis. Views: 1 or 2 view. COMPARISON: CR RT HIP COMPLETE AP PELVIS 11/22/2014 12:01 PM FINDINGS: Bones/joints: There is no gross evidence of a fracture. Soft tissues: Unremarkable. Other findings: The study is limited due to patient body habitus. There are calcified uterine leiomyoma. IMPRESSION: Limited study secondary to patient body habitus. No gross evidence of a fracture. Calcified uterine leiomyoma. Dictated and Authenticated by: Varinder Haynes MD. Ordering:ARTURO Dale MD
--- NOTE | 2020-12-09 17:36 | DI.VRAD_ITS ---
PROCEDURE INFORMATION: Exam: CT Head Without Contrast Exam date and time: 12/09/2020 5:09 PM Age: 65 years old Clinical indication: Injury or trauma; Blunt trauma (contusions or hematomas); Patient HX: AMS, ? fall TECHNIQUE: Imaging protocol: Computed tomography of the head without contrast. COMPARISON: No relevant prior studies available. FINDINGS: Brain: Normal. No hemorrhage. Unremarkable white matter. No mass effect. Cerebral ventricles: No ventriculomegaly. Bones/joints: See Soft tissues finding. Paranasal sinuses: Visualized sinuses are unremarkable. No fluid levels. Mastoid air cells: Visualized mastoid air cells are well aerated. Soft tissues: Soft tissue emphysema in the right cheek of unclear etiology. Occult fracture is not excluded. IMPRESSION: 1. No intracranial hemorrhage or skull fracture. 2. Soft tissue emphysema in the right cheek of unclear etiology. Occult fracture is not excluded. PROCEDURE INFORMATION: Exam: CT Cervical Spine Without Contrast Exam date and time: 12/09/2020 5:09 PM Age: 65 years old Clinical indication: Injury or trauma; Blunt trauma (contusions or hematomas); Patient HX: AMS, ? fall TECHNIQUE: Imaging protocol: Computed tomography images of the cervical spine without contrast. COMPARISON: No relevant prior studies available. FINDINGS: Bones/joints: Schmorl's nodes in the endplates at C5-C6 and C6-C7. Acuity undetermined. Endplate spurring at C5-C6. No vertebral body compression. Normal vertebral body alignment. Normal facets. Normal odontoid process. Normal C1 arch. Discs/Spinal canal/Neural foramina: Moderate bulges at C5-C6 and C6-C7. Submandibular/Parotid glands: Left parotid mass measuring 2.2 cm. Consider sampling. Thyroid: Thyroidectomy. Lungs: Lung apices are normal. Soft tissues: Unremarkable. IMPRESSION: 1. Schmorl's nodes in the endplates at C5-C6 and C6-C7. Acuity undetermined. 2. Degenerative changes. 3. Left parotid mass which should be sampled. Dictated and Authenticated by: Kat Bonds MD. Ordering:ARTURO Dale MD
[2020-12-09 18:02] LABS: COVID-19 PCR Negative (Negative); Influenza A PCR Negative (Negative); Influenza B PCR Negative (Negative); RSV PCR Negative (Negative)
--- NOTE | 2020-12-09 18:18 | HPE_ITS ---
Date of service: 12/09/20 Time of Service: 18:18 Assessment and Plan Assessment and plan (1) OD (overdose of drug): Status: Acute Assessment and plan: Drug OD with intent to harm. Medical issues at pres ent entail sedation (improving), mild hypoventialtion on initial presentation, no doubt secondary to sedatives, and mild hypokalemia of unknown etiology, all insetting of alchohol intoxication (alcohol does not appear to be a chronic problem, as per my interview). Will continue to monitor clinically, and on tely; replace potassium, and await mental health eval when drugs have cleared. Will maintain suicide precautions. History of Present Illness History of Present Illness Chief Complaint: drug OD Narrative: 65 female with h/o depression. Apparently increasing depression over past week, we do not have details on any precipitating factors. found her locked in bathroom this afternoon, broke down door, found her oibtunded, bfrought to ER. It transpired that she took OD of Ativan and Trazadone. In ER initially stuporous, has since become more alert, telling us she intended to harm herself. W/U of note for negative head CT, EtOH 73 (full UDS pending), EKG with difuse TW flattening, with K 3.1 (note that QTc is incorrectly calculated, but is normal to my read). ABG demonstrates mild hypoventilation, with pH 7.33 and pCO2 45, pO2 93. She has received Mg SO4 (empirically, Mg 1.8) and is ordered for K replacement. She is admitted for further management. She asks me about going home. I advise she will first need eval by , and this will not be possible until sensorium fully cleared. I further advise that medically this would in any case be inadvisable at present. She is agreeable to staying. 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 Hyperlipidemia Hypothyroid Insomnia Multinodular goiter Obesity Type 2 diabetes mellitus Social History Smoking/Tobacco Use Status: Never Smoking risk assessment performed?: Yes Drug use: Never Additional Social history: unable to assess Meds Home Medications and Allergies Home Medications Medication Instructions Recorded Confirmed Type atorvastatin 40 mg PO DAILY tab-cap 06/01/18 12/09/20 History levothyroxine 150 mcg PO DAILY tab-cap 06/01/18 12/09/20 History metformin 1,000 mg PO DAILY tab-cap 06/01/18 12/09/20 History oxybutynin chloride 15 mg PO DAILY tab-cap 06/01/18 12/09/20 History Jaylan Mag Zinc Plus D3 1 tab PO DAILY 10/25/18 12/09/20 History acetaminophen 1,000 mg PO Q8H PRN #90 cap 10/25/18 12/09/20 Rx cholecalciferol (vitamin D3) 5,000 unit PO DAILY 10/25/18 12/09/20 History [Vitamin D3] ibuprofen 600 mg PO TID PRN #90 tab 10/25/18 12/09/20 Rx escitalopram oxalate 20 mg tablet 30 mg PO DAILY tab 07/02/20 12/09/20 History omeprazole 20 mg PO DAILY 12/09/20 12/09/20 History Allergies Allergy/AdvReac Type Severity Reaction Status Date / Time No Known Drug Allergies Allergy Unverified 12/09/20 16:13 Exam Narrative Exam Narrative: 113/60, 63, 36.4, 15, 92-95% RA. HEENT atraumatic; neck supple; lunhgs diminished effort, grossly clear; heart RRR w/o MRG; abdomen +BS soft and NT; extremities w/o edema; neuro somewhat sleepy but easily arouses to voice and converses lucidly, albeit with flat affect; moves all 4s Results Labs Result diagrams: 12/09/20 16:30 12/09/20 16:30 Labs: Laboratory Results - last 24 hr 12/09/20 12/09/20 12/09/20 16:23 16:30 16:30 WBC RBC Hgb Hct MCV MCH MCHC RDW Plt Count MPV Immature Gran % Neutrophils % Lymphocytes % Monocytes % Eosinophils % Basophils % Nucleated RBC % Absolute Neutrophils Absolute Lymphocytes Absolute Monocytes Absolute Eosinophils Absolute Basophils ABG Sample Site Right radial ABG pH 7.33 L ABG pCO2 45 ABG pO2 93 ABG HCO3 24 ABG Total CO2 22 L ABG O2 Saturation 95 ABG Base Excess -3 L Oxygen Liter Flow 2 Sodium 137 Potassium 3.1 L Chloride 101 Carbon Dioxide 26.4 Anion Gap 9.6 BUN 11 Creatinine 0.76 Estimated GFR/1.73 m2 >= 60.00 Glucose 118 H Calcium 8.5 Magnesium 1.8 Total Bilirubin 0.3 AST 18 ALT 30 Alkaline Phosphatase 90 Troponin I < 0.05 Total Protein 7.6 Albumin 4.0 Salicylates < 2.8 Acetaminophen < 2 Ethyl Alcohol 73.5 COVID-19 Source SARS-CoV-2 (PCR) Influenza Type A (PCR) Influenza Type B (PCR) RSV (PCR) 12/09/20 12/09/20 12/09/20 16:30 16:30 16:50 WBC 5.89 RBC 4.71 Hgb 13.0 Hct 40.5 MCV 86.0 MCH 27.6 MCHC 32.1 RDW 13.4 Plt Count 245 MPV 10.1 Immature Gran % 0.2 Neutrophils % 64.5 Lymphocytes % 27.7 Monocytes % 5.9 Eosinophils % 1.2 Basophils % 0.5 Nucleated RBC % 0 Absolute Neutrophils 3.80 Absolute Lymphocytes 1.63 Absolute Monocytes 0.35 Absolute Eosinophils 0.07 Absolute Basophils 0.03 ABG Sample Site ABG pH ABG pCO2 ABG pO2 ABG HCO3 ABG Total CO2 ABG O2 Saturation ABG Base Excess Oxygen Liter Flow Sodium Cancelled Potassium Cancelled Chloride Cancelled Carbon Dioxide Cancelled Anion Gap Cancelled BUN Cancelled Creatinine Cancelled Estimated GFR/1.73 m2 Cancelled Glucose Cancelled Calcium Cancelled Magnesium Total Bilirubin Cancelled AST Cancelled ALT Cancelled Alkaline Phosphatase Cancelled Troponin I Total Protein Cancelled Albumin Cancelled Salicylates Acetaminophen Ethyl Alcohol COVID-19 Source Nasopharynx SARS-CoV-2 (PCR) Negative Influenza Type A (PCR) Negative Influenza Type B (PCR) Negative RSV (PCR) Negative Last Vital Signs Temp 36.4 C L 12/09/20 16:05 Pulse 63 12/09/20 18:00 Resp 15 12/09/20 18:01 BP 113/60 12/09/20 17:46 Pulse Ox 92 12/09/20 18:00 COVID-19 Screening Have you, or household traveled for leisure in last 14 days?: No
[2020-12-09] MEDS: POTASSIUM CHLORIDE 20 MEQ/100 ML BAG 50 MEQ IVPB (18:19)
[2020-12-09] MEDS: Normal Saline 500 ML IV (18:20)
[2020-12-09 19:01] LABS: TSH 7.37 uIU/mL (0.36-3.74)
[2020-12-09 19:08] LABS: *AMPHETAMINES SCREEN URINE Negative (Negative); *BARBITURATES SCREEN URINE Negative (Negative); *BENZODIAZEPINES SCREEN URINE Negative (Negative); Cannabinoids THC Negative (Negative); Cocaine Screen,Urine Negative (Negative); METHADONE URINE SCREEN Negative (Negative); OPIATES URINE SCREEN Negative (Negative)
[2020-12-09 19:10] LABS: Tricyclic Antidepressants Negative (Negative)
[2020-12-09] MEDS: Normal Saline Flush 10 ML SYR IVP (21:35)
[2020-12-09] MEDS: Lactated Ringers 1,000 ML 150 ML IV (21:36)
[2020-12-09 22:30] LABS: Acetaminophen < 2 ug/mL (10-30)
[2020-12-10 00:05] VITALS: BP 135/74; PULSE 63; RESP 16; TEMP 36.5; O2SAT 96
[2020-12-10 00:22] VITALS: PULSE 57
[2020-12-10] MEDS: Lactated Ringers 1,000 ML 150 ML IV ×2 (03:56→11:19)
[2020-12-10 03:58] VITALS: BP 155/74; PULSE 64; RESP 18; TEMP 36.7; O2SAT 96
[2020-12-10] MEDS: Levothyroxine 150 MCG TAB PO (06:36)
[2020-12-10 07:08] VITALS: PULSE 64
[2020-12-10 07:40] LABS: Potassium 4.2 mmol/L (3.5-5.1)
[2020-12-10 08:17] VITALS: BP 126/61; PULSE 61; RESP 18; TEMP 36.5; O2SAT 95
[2020-12-10 08:27] LABS: Abs Immature Grans 0.01 10^3/uL (0.0-0.06); Absolute Basophil Count 0.02 10^3/uL (0.0-0.2); Absolute Eosinophil Count 0.08 10^3/uL (0.0-0.7); Absolute Monocyte Count 0.54 10^3/uL (0.1-0.8); Absolute Neutrophil Count 4.71 10^3/uL (1.2-6.7); Basophils % 0.3; HCT 37.2 % (36.0-46.0); HGB 11.8 g/dL (11.2-15.7); Immature Grans % 0.1; Lymphocytes % 30.9; MCH 27.6 pg (27.0-33.0); MCHC 31.7 % (32.0-36.0); MCV 87.1 fL (80-95); MPV 10.6 fL (8.0-11.0); Neutrophils % 60.7; Nucleated RBC 0 %; Platelet Count 262 10^3/uL (130-400); RBC 4.27 10^6/uL (3.93-5.22); RDW-SD 44.7 fL; WBC 7.76 10^3/uL (4.4-10.8)
[2020-12-10 08:34] LABS: Anion Gap 5.2 mmol/L (3-11); BUN 7 mg/dL (7-18); CO2 26.8 mmol/L (21.0-32.0); CREATININE 0.83 mg/dL (0.55-1.02); Calcium 8.5 mg/dL (8.5-10.1); Chloride 108 mmol/L (98-107); Glucose 130 mg/dL (74-106); Magnesium 2.2 mg/dL (1.8-2.4); Potassium 4.2 mmol/L (3.5-5.1); Sodium 140 mmol/L (136-145)
--- NOTE | 2020-12-10 08:36 | PDOC.CMIN ---
- If Service Date Differs Date of service: 12/10/20 Time of Service: 08:36 Care Management Initial Assess REASON FOR HOSPITALIZATION:: Drug overdose. PAST MEDICAL HISTORY/PAST SURGICAL HISTORY:: Medical History: Depression, Diabetes, Fatigue, GERD (gastroesophageal reflux disease), Giant cell tumor tendon, History of positive PPD, Hyperlipidemia, Hypothyroid, Insomnia, Multinodular goiter, Obesity, and. Type 2 diabetes mellitus. PREVIOUS FUNCTIONAL STATUS/SOCIAL/FAMILY SUPPORTS:: Fadia is a 65 year old female who lives in [place] with her , Caleb. 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 Fadia and her have two adopted sons, both of whom are adults. They also have a 3 1/2 year old granddaughter who they frequently babysit. Fadia has seven siblings. She states for the last two weeks, her oldest sister, Sravani, has been staying at her home where she will remain while she recuperates from knee surgery. Sravani resides alone in [place]. Fadia reports she has a few friends and family she is close to, but states she has been unable to get together with any of them since January of 2020 due to Covid. CURRENT FUNCTIONAL STATUS:: Fadia is lying in bed when comes to meet with her. She is pleasant and answers questions without hesitation. Fadia shares she has struggled with depression for many years and yesterday she became overwhelmed and decided to end her life by taking an overdose of medication and mixing it with alcohol. Fadia is open about the fact that she has frequently thought of suicide over the years but denies a history of suicide attempts. Fadia expresses her belief that her family would be better off without her and states I have nothing to look forward to. ADVANCE DIRECTIVES:: None on file; offers a form and patient declines. Has patient been provided with info about the portal/API?: Yes Did the patient sign up for the portal?: No (Patient declines.) CODE STATUS:: Full Code INSURANCE COVERAGE / FINANCIAL ISSUES:: Medicare. CURRENT HOME/COMMUNITY SERVICES/EQUIPMENT:: None. PRIMARY CARE PHYSICIAN:: Fela Quiroga MD ([facility]). POTENTIAL DISCHARGE NEEDS:: Inpatient psychiatric placement. PATIENT/FAMILY EDUCATION NEEDS:: Discharge instructions, expectations, and follow up plan of care. ANTICIPATED BARRIERS TO DISCHARGE:: None currently. TRANSPORTATION:: Via [facility] once placement is secured. PLAN:: Fadia will remain at [facility] on involuntary status while she awaits the 2nd Certification by Psychiatrist and subsequent inpatient psych placement. CM will continue to follow.
[2020-12-10] MEDS: Omeprazole 20 MG CAPCR PO (08:43)
[2020-12-10] MEDS: M 15 MG PO (08:43)
[2020-12-10] MEDS: THIAMINE 100 MG in Normal Saline 100 ML 200 MG IVPB (09:05)
[2020-12-10 11:39] VITALS: BP 126/72; PULSE 60; RESP 18; TEMP 36.7; O2SAT 91
--- NOTE | 2020-12-10 13:21 | W.PM.PROGNOT ---
Date of Service Date of service: 12/10/20 Time of Service: 13:21 Assessment and Plan Assessment and plan (1) OD (overdose of drug): Status: Acute Assessment and plan: admits to taking 8 0.5 mg ativan tabs and 30 150 mg trazodone tabs which she states was prescribed to her mother. she is medically cleared and at her baseline. mental health evaluation and patient qualifies for EE, paperwork completed. suicide precautions and care plan in place. CPSO assigned, referrals for intpatient treatment pending. (2) Type 2 diabetes mellitus: Status: Acute Assessment and plan: diabetic diet, continue metformin am glucose 130. (3) Hypothyroidism: Status: Chronic Assessment and plan: TSH elevated, possibly d/t event. will recheck in am continue current dosing (4) Discharge planning issues: Status: Acute Assessment and plan: held on EE, mental health and case management following awaiting inpatient bed. discussed with DR Luque Subjective Subjective Patient reports: no new complaints and afebrile Interval history since last seen: patient has remained medically stable overnight. she has been cooperative with no behavioral issues. she is awake and oriented, tolerating oral fluids and solids, hemodynamically stable. Exam Const General: cooperative, healthy appearing, comfortable and no acute distress Nutritional Appearance: overweight Orientation: alert, awake and oriented x3 HENMT Head: normal to inspection, normocephalic and atraumatic Mouth: oral mucosae normal Resp Effort & Inspection: normal respiratory effort Auscultation: clear to auscultation bilaterally Cardio Rate: regular rate Rhythm: regular rhythm GI Inspection: normal to inspection Palpation: soft and nontender Auscultation: normal bowel sounds Skin General skin exam: no rashes or lesions noted Neuro General: patient alert, patient awake, patient oriented x3 and moves all extremities Extrem General: normal to inspection, full ROM and no pedal edema Psych Appearance: grossly normal Speech and Movement: speech and movement normal Mood: irritable mood Affect: blunted Attitude: cooperative Insight: fair Judgment: limited Objective Last Vital Signs Temp 36.7 C 12/10/20 11:39 Pulse 60 12/10/20 11:39 Resp 18 12/10/20 11:39 BP 126/72 12/10/20 11:39 Pulse Ox 91 L 12/10/20 11:39 Laboratory Results - last 24 hr 12/09/20 12/09/20 12/09/20 16:23 16:30 16:30 WBC RBC Hgb Hct MCV MCH MCHC RDW Plt Count MPV Immature Gran % Neutrophils % Lymphocytes % Monocytes % Eosinophils % Basophils % Nucleated RBC % Absolute Neutrophils Absolute Lymphocytes Absolute Monocytes Absolute Eosinophils Absolute Basophils ABG Sample Site Right radial ABG pH 7.33 L ABG pCO2 45 ABG pO2 93 ABG HCO3 24 ABG Total CO2 22 L ABG O2 Saturation 95 ABG Base Excess -3 L Oxygen Liter Flow 2 Sodium 137 Potassium 3.1 L Chloride 101 Carbon Dioxide 26.4 Anion Gap 9.6 BUN 11 Creatinine 0.76 Estimated GFR/1.73 m2 >= 60.00 Glucose 118 H Calcium 8.5 Magnesium 1.8 Total Bilirubin 0.3 AST 18 ALT 30 Alkaline Phosphatase 90 Troponin I < 0.05 Total Protein 7.6 Albumin 4.0 TSH Salicylates < 2.8 Urine Opiates Screen Urine Methadone Screen Acetaminophen < 2 Ur Barbiturates Screen Ur Tricyclics Screen Ur Amphetamines Screen U Benzodiazepines Scrn Urine Cocaine Screen Ur THC Screen Ethyl Alcohol 73.5 COVID-19 Source SARS-CoV-2 (PCR) Influenza Type A (PCR) Influenza Type B (PCR) RSV (PCR) 12/09/20 12/09/20 12/09/20 16:30 16:30 16:30 WBC 5.89 RBC 4.71 Hgb 13.0 Hct 40.5 MCV 86.0 MCH 27.6 MCHC 32.1 RDW 13.4 Plt Count 245 MPV 10.1 Immature Gran % 0.2 Neutrophils % 64.5 Lymphocytes % 27.7 Monocytes % 5.9 Eosinophils % 1.2 Basophils % 0.5 Nucleated RBC % 0 Absolute Neutrophils 3.80 Absolute Lymphocytes 1.63 Absolute Monocytes 0.35 Absolute Eosinophils 0.07 Absolute Basophils 0.03 ABG Sample Site ABG pH ABG pCO2 ABG pO2 ABG HCO3 ABG Total CO2 ABG O2 Saturation ABG Base Excess Oxygen Liter Flow Sodium Cancelled Potassium Cancelled Chloride Cancelled Carbon Dioxide Cancelled Anion Gap Cancelled BUN Cancelled Creatinine Cancelled Estimated GFR/1.73 m2 Cancelled Glucose Cancelled Calcium Cancelled Magnesium Total Bilirubin Cancelled AST Cancelled ALT Cancelled Alkaline Phosphatase Cancelled Troponin I Total Protein Cancelled Albumin Cancelled TSH 7.37 H Salicylates Urine Opiates Screen Urine Methadone Screen Acetaminophen Ur Barbiturates Screen Ur Tricyclics Screen Ur Amphetamines Screen U Benzodiazepines Scrn Urine Cocaine Screen Ur THC Screen Ethyl Alcohol COVID-19 Source SARS-CoV-2 (PCR) Influenza Type A (PCR) Influenza Type B (PCR) RSV (PCR) 12/09/20 12/09/20 12/09/20 16:50 18:40 19:17 WBC RBC Hgb Hct MCV MCH MCHC RDW Plt Count MPV Immature Gran % Neutrophils % Lymphocytes % Monocytes % Eosinophils % Basophils % Nucleated RBC % Absolute Neutrophils Absolute Lymphocytes Absolute Monocytes Absolute Eosinophils Absolute Basophils ABG Sample Site ABG pH ABG pCO2 ABG pO2 ABG HCO3 ABG Total CO2 ABG O2 Saturation ABG Base Excess Oxygen Liter Flow Sodium Potassium Chloride Carbon Dioxide Anion Gap BUN Creatinine Estimated GFR/1.73 m2 Glucose Calcium Magnesium Total Bilirubin AST ALT Alkaline Phosphatase Troponin I Cancelled Total Protein Albumin TSH Salicylates Urine Opiates Screen Negative Urine Methadone Screen Negative Acetaminophen Ur Barbiturates Screen Negative Ur Tricyclics Screen Negative Ur Amphetamines Screen Negative U Benzodiazepines Scrn Negative Urine Cocaine Screen Negative Ur THC Screen Negative Ethyl Alcohol COVID-19 Source Nasopharynx SARS-CoV-2 (PCR) Negative Influenza Type A (PCR) Negative Influenza Type B (PCR) Negative RSV (PCR) Negative 12/09/20 12/10/20 12/10/20 21:47 07:10 07:10 WBC RBC Hgb Hct MCV MCH MCHC RDW Plt Count MPV Immature Gran % Neutrophils % Lymphocytes % Monocytes % Eosinophils % Basophils % Nucleated RBC % Absolute Neutrophils Absolute Lymphocytes Absolute Monocytes Absolute Eosinophils Absolute Basophils ABG Sample Site ABG pH ABG pCO2 ABG pO2 ABG HCO3 ABG Total CO2 ABG O2 Saturation ABG Base Excess Oxygen Liter Flow Sodium 140 Potassium 4.2 D 4.2 Chloride 108 H Carbon Dioxide 26.8 Anion Gap 5.2 BUN 7 Creatinine 0.83 Estimated GFR/1.73 m2 >= 60.00 Glucose 130 H Calcium 8.5 Magnesium 2.2 Total Bilirubin AST ALT Alkaline Phosphatase Troponin I Total Protein Albumin TSH Salicylates Urine Opiates Screen Urine Methadone Screen Acetaminophen < 2 Ur Barbiturates Screen Ur Tricyclics Screen Ur Amphetamines Screen U Benzodiazepines Scrn Urine Cocaine Screen Ur THC Screen Ethyl Alcohol COVID-19 Source SARS-CoV-2 (PCR) Influenza Type A (PCR) Influenza Type B (PCR) RSV (PCR) 12/10/20 07:10 WBC 7.76 D RBC 4.27 Hgb 11.8 Hct 37.2 MCV 87.1 MCH 27.6 MCHC 31.7 L RDW 14.0 Plt Count 262 MPV 10.6 Immature Gran % 0.1 Neutrophils % 60.7 Lymphocytes % 30.9 Monocytes % 7.0 Eosinophils % 1.0 Basophils % 0.3 Nucleated RBC % 0 Absolute Neutrophils 4.71 Absolute Lymphocytes 2.40 Absolute Monocytes 0.54 Absolute Eosinophils 0.08 Absolute Basophils 0.02 ABG Sample Site ABG pH ABG pCO2 ABG pO2 ABG HCO3 ABG Total CO2 ABG O2 Saturation ABG Base Excess Oxygen Liter Flow Sodium Potassium Chloride Carbon Dioxide Anion Gap BUN Creatinine Estimated GFR/1.73 m2 Glucose Calcium Magnesium Total Bilirubin AST ALT Alkaline Phosphatase Troponin I Total Protein Albumin TSH Salicylates Urine Opiates Screen Urine Methadone Screen Acetaminophen Ur Barbiturates Screen Ur Tricyclics Screen Ur Amphetamines Screen U Benzodiazepines Scrn Urine Cocaine Screen Ur THC Screen Ethyl Alcohol COVID-19 Source SARS-CoV-2 (PCR) Influenza Type A (PCR) Influenza Type B (PCR) RSV (PCR)
--- NOTE | 2020-12-10 14:43 | CMSP_ITS ---
- If Service Date Differs Date of service: 12/10/20 Time of Service: 14:43 Care Management Safety Plan Status: Involuntary INVOLUNTARY FOR INPATIENT PSYCHIATRIC STABILIZATION. Safety plan has been established to meet the needs of the patient, and consideration of the care team, to adhere to patient goals, identify restrictions based on behavioral status, address nutrition, and determine allowed personal belongings, tools for hygiene and personal care. Determine level of activity including ambulation, level of supervision, visitors, and determine privileges based on behaviors and level of engagement by patient. SAFETY PLAN: 1. Will remain on SI/HI precautions and in paper clothes. 2. Will remain in room under direct supervision of one-on-one staff at all times provided by CPSO, DANIEL, PIPE ROLLER cake decorator. 3. May have paper cups, plates, finger foods as well as a cardboard spoon with which to eat meal. 4. Follow [facility] Management of the Admitted Behavioral Health Patient policy. 5. Comfort bath system only. 6. No personal belongings. 7. Visitors: None per [facility] Covid policy. 8. Activities: Allowed television and soft cart items at nursing discretion. 9. Bathroom privileges without supervision. 10. Phone: Allowed incoming and outgoing telephone calls to her , Caleb Beach, at nursing discretion. 11. Due to INVOLUNTARY status, patient is being held at [facility] by the Department of Mental Health ([facility]) until 2nd certification by [facility] Psychiatrist can be performed (within 24 hours). Staff will provide de-escalation support (CPI) as needed. If patient wishes to leave [facility], staff will contact [facility] Crisis Screener ([phone]) and On-Call Furniture Detailer ([phone]) as soon as possible. In the event of elopement, notify [place] [employer] ([phone]). In the event of verbal or physical aggression towards the staff, buzz burt will be called and location of care will be transferred to the ED. Patient is currently involuntarily at [facility]. [facility] Frontline Cleaner Industrial will continue seeking placement. Please contact the Mother Helper Furniture Detailer ([phone]) for any needed changes to Safety Plan. Safety plan has been provided to interdepartmental care team. Patient will be transported by waistband setter lockstitch at time of discharge.
--- NOTE | 2020-12-10 14:43 | PDOC.CMSAFE ---
- If Service Date Differs Date of service: 12/10/20 Time of Service: 14:43 Care Management Safety Plan Status: Involuntary INVOLUNTARY FOR INPATIENT PSYCHIATRIC STABILIZATION. Safety plan has been established to meet the needs of the patient, and consideration of the care team, to adhere to patient goals, identify restrictions based on behavioral status, address nutrition, and determine allowed personal belongings, tools for hygiene and personal care. Determine level of activity including ambulation, level of supervision, visitors, and determine privileges based on behaviors and level of engagement by patient. SAFETY PLAN: 1. Will remain on SI/HI precautions and in paper clothes. 2. Will remain in room under direct supervision of one-on-one staff at all times provided by CPSO, DANIEL, SAFE AND VAULT SERVICE MECHANIC ocean export account manager. 3. May have paper cups, plates, finger foods as well as a cardboard spoon with which to eat meal. 4. Follow [facility] Management of the Admitted Behavioral Health Patient policy. 5. Comfort bath system only. 6. No personal belongings. 7. Visitors: None per [facility] Covid policy. 8. Activities: Allowed television and soft cart items at nursing discretion. 9. Bathroom privileges without supervision. 10. Phone: Allowed incoming and outgoing telephone calls to her , Caleb Beach, at nursing discretion. 11. Due to INVOLUNTARY status, patient is being held at [facility] by the Department of Mental Health ([facility]) until 2nd certification by [facility] Psychiatrist can be performed (within 24 hours). Staff will provide de-escalation support (CPI) as needed. If patient wishes to leave [facility], staff will contact [facility] Crisis Screener ([phone]) and On-Call Maple Sugar Maker ([phone]) as soon as possible. In the event of elopement, notify [place] [employer] ([phone]). In the event of verbal or physical aggression towards the staff, buzz burt will be called and location of care will be transferred to the ED. Patient is currently involuntarily at [facility]. [facility] Frontline Social Welfare Administrator will continue seeking placement. Please contact the Software Integration Developer Maple Sugar Maker ([phone]) for any needed changes to Safety Plan. Safety plan has been provided to interdepartmental care team. Patient will be transported by wheel filler at time of discharge.
--- NOTE | 2020-12-10 15:11 | W.INMHPGNOTE ---
Date of service: 12/10/20 Time of Service: 15:11 Mental Health Crisis Note Presenting Issue How did you arrive at the ED and why did you come: Fadia arrived to [facility] ER yesterday via ambulance after and intentional over dose of medications, that we learned today, were not hers. Precipitating Factors Fadia denied SI but reports she is depressed and hopeless. She makes numerous statements like I don't know why I can't do what I feel is right for me. She denied HI. Disposition BEHAVIOR: Fadia is depressed and argumentative about her treatment options. She does not want to meet with this clinician or any other clinician from [facility]. She is agitated but does try to answer questions. EYE CONTACT: Fadia's eye contact is fair to poor. Mostly she has her eyes closed. MOOD: Fadia is depressed and hopeless about her future. At times she is agitated and argumentative. AFFECT: Fadia's affect is flat and tearful. APPETITE: Fadia reported that her appetite is fine only eating one meal a day because she wants to lose weight. SLEEP(trouble falling/staying asleep: Fadia reported that her sleep is poor stating only 4-5 hours a night. Plan Fadia was not willing to engage in a lessor restrictive plan for treatment so an EE was completed with Stephy Shields NP. There are no beds available today. This clinician faxed the EE to Jey Martinez and the [facility].
--- NOTE | 2020-12-10 16:16 | PHA.REVIEW ---
Pharmacy Admission Review - Admission Clinical Review (Last Reviewed 12/09/20 @ 18:27 by Albaro Liu MD) Discharge planning issues (Acute) OD (overdose of drug) (Acute) Type 2 diabetes mellitus (Acute) No Known Drug Allergies Allergy (Unverified 12/09/20 16:13) Height 5 ft 10 in Weight 95.254 kg - Renal Dosing Renal Dosing: BUN 7 mg/dL (7-18) 12/10/20 07:10 Creatinine 0.83 mg/dL (0.55-1.02) 12/10/20 07:10 Medications needing adjustments: Reviewed (Crcl ~71.1 mL/min current meds okay) - Anticoagulation Anticoagulation: Hgb 11.8 g/dL (11.2-15.7) 12/10/20 07:10 Hct 37.2 % (36.0-46.0) 12/10/20 07:10 Plt Count 262 10^3/uL (130-400) 12/10/20 07:10 Creatinine 0.83 mg/dL (0.55-1.02) 12/10/20 07:10 DVT Prohphylaxis: Reviewed - Opiate Usage Evaluate Pain Scale/Pains Meds: N/A - Relevant Labs Sodium 140 mmol/L (136-145) 12/10/20 07:10 Potassium 4.2 mmol/L (3.5-5.1) 12/10/20 07:10 Potassium 4.2 mmol/L (3.5-5.1) D 12/10/20 07:10 Chloride 108 mmol/L (98-107) H 12/10/20 07:10 Magnesium 2.2 mg/dL (1.8-2.4) 12/10/20 07:10 Electrolytes, C-Reactive P, ESR: Reviewed - DM Control DM Control: Glucose 130 mg/dL (74-106) H 12/10/20 07:10 Insulin Dosing: Reviewed (BG mildly elevate, metformin ordered) - Heart Failure/TN Heart Failure/TN: Troponin I Cancelled 12/09/20 19:17 EF%, LINO's, B-Blockers, Diuretics: Reviewed - BP Control BP Control: Blood Pressure 126/72 Blood Pressure 126/61 If elevated: N/A - Qtc Review If Elevated: N/A - IV to PO Switch IV Medications: Reviewed - Home Meds Home Med List reviewed: Reviewed (Separate admin of calcium and levothyroxine. Escitalopram may enhance the antiplatelet effect of ibuprofen; ibuprofen may diminish the therapeutic effect of escitalopram.) - Current meds Current Medication Order Review: Intervened (adjusted timing of omeprazole based on medical claims representative timing policy) - Comments Comments/Follow Ups: Watch VS, labs, and for med changes.
[2020-12-10 16:41] LABS: Bilirubin Negative (Negative); Blood Large (Negative); Clarity Cloudy (Clear); Glucose Negative (Negative); Ketones Negative (Negative); Leukocyte Esterase Large (Negative); Nitrite Negative (Negative); Specific Gravity 1.015 (1.005-1.025); Urobilinogen 0.2 EU/dL (Up TO 0.2); pH 7.5 (5-8)
[2020-12-10 16:50] LABS: Bacteria Moderate HPF (Negative); C & S Indicated? Yes; Casts Negative LPF (Negative); Crystals Negative HPF (Negative); Epithelial Cells Rare HPF (Negative); Mucus Negative (Negative); Other Cells Negative (Negative); RBC >50 HPF (0-2); WBC >50 HPF (0-5)
[2020-12-10] MEDS: metFORMIN 500 MG TAB PO (17:03)
[2020-12-10] MEDS: Cephalexin 500 MG CAP PO ×2 (17:04→21:24)
[2020-12-10] MEDS: Acetaminophen 500 MG TAB 1000 MG PO (21:23)
[2020-12-10] MEDS: Melatonin 3 MG TAB 9 MG PO (21:23)
[2020-12-11] MEDS: Omeprazole 20 MG CAPCR PO (07:02)
[2020-12-11] MEDS: Levothyroxine 150 MCG TAB PO (07:02)
[2020-12-11 07:23] LABS: Abs Immature Grans 0.02 10^3/uL (0.0-0.06); Absolute Basophil Count 0.03 10^3/uL (0.0-0.2); Absolute Eosinophil Count 0.15 10^3/uL (0.0-0.7); Absolute Lymphocyte Count 1.98 10^3/uL (1.2-3.4); Absolute Monocyte Count 0.61 10^3/uL (0.1-0.8); Basophils % 0.3; Eosinophils % 1.5; HCT 36.5 % (36.0-46.0); HGB 11.6 g/dL (11.2-15.7); Immature Grans % 0.2; Lymphocytes % 19.3; MCH 27.2 pg (27.0-33.0); MCHC 31.8 % (32.0-36.0); MCV 85.5 fL (80-95); MPV 10.2 fL (8.0-11.0); Monocytes % 5.9; Neutrophils % 72.8; Nucleated RBC 0 %; Platelet Count 244 10^3/uL (130-400); RBC 4.27 10^6/uL (3.93-5.22); RDW 13.8 % (11.7-14.6); RDW-SD 43.1 fL; WBC 10.28 10^3/uL (4.4-10.8)
[2020-12-11 07:26] LABS: Absolute Neutrophil Count 7.48 10^3/uL (1.2-6.7)
[2020-12-11] MEDS: M 15 MG PO (07:38)
[2020-12-11] MEDS: Escitalopram 10 MG TAB 30 MG PO (07:38)
[2020-12-11] MEDS: Cephalexin 500 MG CAP PO ×3 (07:38→19:42)
[2020-12-11] MEDS: Calcium Carbonate 1.25 GM TAB PO (07:38)
[2020-12-11] MEDS: Cholecalciferol (Vitamin D3) 1,000 UNIT TAB 5000 UNITS PO (07:38)
[2020-12-11] MEDS: metFORMIN 500 MG TAB PO ×2 (07:39→16:46)
[2020-12-11] MEDS: Atorvastatin 40 MG TAB PO (07:39)
[2020-12-11 07:42] LABS: Anion Gap 5.6 mmol/L (3-11); BUN 7 mg/dL (7-18); CO2 28.4 mmol/L (21.0-32.0); CREATININE 0.91 mg/dL (0.55-1.02); Calcium 8.7 mg/dL (8.5-10.1); Chloride 105 mmol/L (98-107); Glucose 137 mg/dL (74-106); Potassium 3.8 mmol/L (3.5-5.1); Sodium 139 mmol/L (136-145); TSH 4.99 uIU/mL (0.36-3.74)
[2020-12-11 07:55] VITALS: BP 118/67; PULSE 49; RESP 18; TEMP 36.3; O2SAT 97
[2020-12-11] MEDS: Acetaminophen 500 MG TAB 1000 MG PO ×2 (08:12→16:45)
--- NOTE | 2020-12-11 15:00 | CMPROGNOTE_ITS ---
- If Service Date Differs Date of service: 12/11/20 Time of Service: 15:00 Care Management Progress Note S/O: Fadia was lying in bed when CM entered the room. Per CPSO, she has been lying in bed/resting/sleeping most of the day, on and off. WADE facilitated a zoom meeting between Fadia and CRISELDA Ramires. She spoke of her family dynamic, as it has been especially hard on her having her sister, Sravani, stay with her these last two weeks. She reported that Sravani has been using her home phone frequently, to the point that she is unable to use it. She also stated that her other siblings (she has 7 siblings total, but one took her own life in 1973) have been calling to talk to Sravani, but not to check in with Fadia, which has been hurtful to Fadia. Fadia also reported having a long and difficult relationship with her of over 40 years. She continues to express that she wanted to be successful with her attempt, but now she feels that she would not attempt suicide if she was to be sent home. She was not able to explain what is different, or how she would cope with her stress at home, which has not changed. She mentioned a couple of times that she does not understand why she is being held against her will, but that people are able to make bad choices in the community and not be penalized for it (i.e. drinking/driving). WADE stated that all of her concerns were brought to the attention of the staff, and that if she needs personal hygiene tools, to ask, and she will certainly be able to use them- they just can't stay in the room. Per CPSO, she was able to have a shower today. She was not very agreeable to talk with CM after her zoom meeting. A referral was sent to [facility], who requested a surgical consult today. A mass was identified on a CT scan, so they asked for a surgical opinion regarding a biopsy. Per report, 'CT reviewed with Dr Denny ENT at [facility] who recommends outpatient referral after acute psychiatric hospitalization, sooner if she develops pain or new symptoms'. WADE will continue to follow. A: Fadia is a 65 year old female admitted to [facility] on 12/09/2020 with SI w/attempt. P: Fadia is being held involuntarily by [facility]. Second certification was upheld yesterday by Dr. Toro. Per [facility] screener, hospitalization continues to be the recommendation today. A referral was sent to , and other hospitals were contacted with no bed availability. CM sent updated notes to this afternoon, as soon as they became available. She will transport via [facility], coordinated by [facility], once she has been accepted at a psychiatric facility. CM will continue to follow.
--- NOTE | 2020-12-11 15:05 | CHAPLAIN ---
I visited with Fadia yesterday. She was sitting on the edge of her bed. I introduced myself, explained my role and offered support. She thanked me for stopping in.
--- NOTE | 2020-12-11 15:20 | W.PM.PROGNOT ---
Date of Service Date of service: 12/11/20 Time of Service: 15:20 Assessment and Plan Assessment and plan (1) OD (overdose of drug): Status: Acute Assessment and plan: admits to taking 8 0.5 mg ativan tabs and 30 150 mg trazodone tabs which she states was prescribed to her mother. she is medically cleared and at her baseline. mental health evaluation and patient qualifies for EE, paperwork completed. suicide precautions and care plan in place. CPSO assigned, referrals for intpatient treatment pending. (2) Type 2 diabetes mellitus: Status: Acute Assessment and plan: diabetic diet, continue metformin am glucose 137. continue with home regimen. (3) Hypothyroidism: Status: Chronic Assessment and plan: TSH elevated, possibly d/t event. recheck this am with marked improvement. Should be rechecked in 6-8 weeks. continue current dosing (4) Mass of left parotid gland: Status: Acute Assessment and plan: coincidental finding on CT scan. patient denies any pain, numbness or symptoms CT reviewed with Dr Denny ENT at [facility] who recommends outpatient referral after acute psychiatric hospitalization, sooner if she develops pain or new symptoms. (5) Discharge planning issues: Status: Acute Assessment and plan: held on EE, mental health and case management following awaiting inpatient bed. discussed with DR Luque Subjective Subjective Patient reports: no new complaints, tolerating liquids well, tolerating a regular diet and afebrile Interval history since last seen: denies pain. still reporting hematuria with some blood clots, no pain. voiding well. Exam Const General: healthy appearing, comfortable and no acute distress Nutritional Appearance: overweight Orientation: alert, awake and oriented x3 [facility] Head: normal to inspection, normocephalic and atraumatic Mouth: oral mucosae normal Resp Effort & Inspection: normal respiratory effort Auscultation: clear to auscultation bilaterally Cardio Rate: regular rate Rhythm: regular rhythm GI Inspection: normal to inspection Palpation: soft and nontender Auscultation: normal bowel sounds Skin General skin exam: no rashes or lesions noted Neuro General: patient alert, patient awake, patient oriented x3 and moves all extremities Extrem General: normal to inspection, full ROM and no pedal edema Psych Appearance: grossly normal Speech and Movement: speech and movement normal Mood: labile mood and irritable mood Affect: hostile and blunted Attitude: cooperative Insight: fair Judgment: limited Objective Last Vital Signs Temp 36.3 C L 12/11/20 07:55 Pulse 49 L 12/11/20 07:55 Resp 18 12/11/20 07:55 BP 118/67 12/11/20 07:55 Pulse Ox 97 12/11/20 07:55 Laboratory Results - last 24 hr 12/10/20 12/11/20 12/11/20 16:30 06:50 06:50 WBC 10.28 D RBC 4.27 Hgb 11.6 Hct 36.5 MCV 85.5 MCH 27.2 MCHC 31.8 L RDW 13.8 Plt Count 244 MPV 10.2 Immature Gran % 0.2 Neutrophils % 72.8 Lymphocytes % 19.3 Monocytes % 5.9 Eosinophils % 1.5 Basophils % 0.3 Nucleated RBC % 0 Absolute Neutrophils 7.48 H Absolute Lymphocytes 1.98 Absolute Monocytes 0.61 Absolute Eosinophils 0.15 Absolute Basophils 0.03 Sodium 139 Potassium 3.8 Chloride 105 Carbon Dioxide 28.4 Anion Gap 5.6 BUN 7 Creatinine 0.91 Estimated GFR/1.73 m2 >= 60.00 Glucose 137 H Calcium 8.7 Magnesium 2.0 TSH 4.99 H Urine Color Yellow Urine Clarity Cloudy Urine pH 7.5 Ur Specific [place] 1.015 Urine Protein Negative Urine Ketones Negative Urine Blood Large H Urine Nitrite Negative Urine Bilirubin Negative Urine Urobilinogen 0.2 Ur Leukocyte Esterase Large H Urine RBC >50 H Urine WBC >50 H Ur Epithelial Cells Rare Urine Crystals Negative Urine Bacteria Moderate Urine Casts Negative Urine Mucus Negative Urine Other Negative Ur Culture Indicated? Yes Urine Glucose Negative
[2020-12-11 16:14] VITALS: BP 121/70; PULSE 57; RESP 18; TEMP 36.6; O2SAT 97
--- NOTE | 2020-12-11 16:15 | CMSP_ITS ---
- If Service Date Differs Date of service: 12/11/20 Time of Service: 16:15 Care Management Safety Plan Status: Involuntary Status: Involuntary INVOLUNTARY FOR INPATIENT PSYCHIATRIC STABILIZATION. Safety plan has been established to meet the needs of the patient, and consideration of the care team, to adhere to patient goals, identify restrictions based on behavioral status, address nutrition, and determine allowed personal belongings, tools for hygiene and personal care. Determine level of activity including ambulation, level of supervision, visitors, and determine privileges based on behaviors and level of engagement by patient. SAFETY PLAN: 1. Will remain on SI/HI precautions and in paper clothes. 2. Will remain in room under direct supervision of one-on-one staff at all times provided by CPSO, DANIEL, GOVERNOR ASSEMBLER oracle analyst. 3. May have paper cups, plates, finger foods as well as a cardboard spoon with which to eat meal. 4. Follow [facility] Management of the Admitted Behavioral Health Patient policy. 5. Shower allowed, at the discretion of RN. 6. No personal belongings. 7. Visitors: None per [facility] Covid policy. 8. Activities: Allowed television and soft cart items at nursing discretion. 9. Bathroom privileges without supervision. 10. Phone: Allowed incoming and outgoing telephone calls to her , Caleb Beach, at nursing discretion. 11. Due to INVOLUNTARY status, patient is being held at [facility] by the Department of Mental Health (DM) until 2nd certification by [facility] Psychiatrist can be performed (within 24 hours). Staff will provide de-escalation support (CPI) as needed. If patient wishes to leave [facility], staff will contact [facility] Crisis Screener ([phone]) and On-Call Maritime Officer ([phone]) as soon as possible. In the event of elopement, notify [place] [employer] Police ([phone]). In the event of verbal or physical aggression towards the staff, buzz burt will be called and location of care will be transferred to the ED. Patient is currently involuntarily at [facility]. [facility] Frontline Police Department Secretary will continue seeking placement. Please contact the House Director Maritime Officer ([phone]) for any needed changes to Safety Plan. Safety plan has been prov ided to interdepartmental care team. Patient will be transported by [facility] at time of discharge.
--- NOTE | 2020-12-11 16:15 | PDOC.CMSAFE ---
- If Service Date Differs Date of service: 12/11/20 Time of Service: 16:15 Care Management Safety Plan Status: Involuntary Status: Involuntary INVOLUNTARY FOR INPATIENT PSYCHIATRIC STABILIZATION. Safety plan has been established to meet the needs of the patient, and consideration of the care team, to adhere to patient goals, identify restrictions based on behavioral status, address nutrition, and determine allowed personal belongings, tools for hygiene and personal care. Determine level of activity including ambulation, level of supervision, visitors, and determine privileges based on behaviors and level of engagement by patient. SAFETY PLAN: 1. Will remain on SI/HI precautions and in paper clothes. 2. Will remain in room under direct supervision of one-on-one staff at all times provided by CPSO, DANIEL, SEWING MACHINE TESTER auditor/quality. 3. May have paper cups, plates, finger foods as well as a cardboard spoon with which to eat meal. 4. Follow [facility] Management of the Admitted Behavioral Health Patient policy. 5. Shower allowed, at the discretion of RN. 6. No personal belongings. 7. Visitors: None per [facility] Covid policy. 8. Activities: Allowed television and soft cart items at nursing discretion. 9. Bathroom privileges without supervision. 10. Phone: Allowed incoming and outgoing telephone calls to her , Caleb Beach, at nursing discretion. 11. Due to INVOLUNTARY status, patient is being held at [facility] by the Department of Mental Health (DM) until 2nd certification by [facility] Psychiatrist can be performed (within 24 hours). Staff will provide de-escalation support (CPI) as needed. If patient wishes to leave [facility], staff will contact [facility] Crisis Screener ([phone]) and On-Call Package Designer ([phone]) as soon as possible. In the event of elopement, notify [place] State Police ([phone]). In the event of verbal or physical aggression towards the staff, buzz burt will be called and location of care will be transferred to the ED. Patient is currently involuntarily at [facility]. [facility] Frontline Bridge Gang Worker will continue seeking placement. Please contact the Alarm Operator Package Designer ([phone]) for any needed changes to Safety Plan. Safety plan has been provided to interdepartmental care team. Patient will be transported by cardroom plastic card grader at time of discharge.
--- NOTE | 2020-12-11 16:26 | W.INMHPGNOTE ---
Date of service: 12/11/20 Time of Service: 16:26 Mental Health Crisis Note Presenting Issue How did you arrive at the ED and why did you come: The client is seen for a follow-up assessment via telehealth at [facility]. She is currently on involuntary status in relation to suicide attempt on 12/09/20. Per documentation, the client drank 4 8oz bottles of alcohol and took approximately 30 trazadone (150mg) and 6 lorazepam following verbal altercation with her sister. Is reported that client proceeded to lock herself in the bathroom of the home and lay down inside the tub which had been filled with water which prompted the client's to break through the door and call 911 as client was unresponsive. Precipitating Factors The client presents in disposable paper garments per [facility] policy. She is alert and oriented to person, place, time, and situation. Eye contact is intermittent and client is observed to close her eyes for extended periods of time while responding. She is responsive to questions with speech that is clear and coherent. She reports that her mood is 'sad' today with congruent affect. No reported history or current observable evidence of delusions, hallucinations, or psychotic thought process. Thinking appears clear and organized. She reports her sleep to be adequate but poor appetite. The client is observed to become agitated and tearful while recounting recent issues in relation to suicide attempt on 12/09. She reports interpersonal issues in relation to her sister appropriating her phone and longstanding stressful family dynamics that broke the camel's back. She states that I'm 65 years old and I put up with my and others for years. I tried to kill myself and now I'm being punished because I was not successful. She discloses several complaints in relation to her treatment while at [facility], stating that I'm being unfairly persecuted. I'm not even allowed to eat with a fork and I was told that I had to earn the right to use soap unsupervised. The client denies current SI/HI/SIB and was unwilling or unable to clarify how she could maintain safety if discharged home. Client disengaged from assessment process and terminated the telehealth session. Disposition BEHAVIOR: Appropriate but agitated. EYE CONTACT: Intermittent MOOD: Sad AFFECT: Congruent to stated mood APPETITE: Client reports that she does not have an appetite SLEEP(trouble falling/staying asleep: No reported issues. Plan Based on current presentation, severity of recent suicide attempt and demonstration of resistance to care, the client will remain on involuntary status pending suitable discharge conditions to an in-patient facility. Information has been faxed / forwarded to Jey Schulenburg. Additional notes per [facility] CM: Client currently has an active UTI that is suspected to have been contracted during events that occurred on 12/09/20. [facility] a mass located on neck prior to admission / review - consult will be processed shortly. Signature Clinician's Name/Title: Eliel Landers [facility] Clinician / HP
[2020-12-11] MEDS: Melatonin 3 MG TAB 9 MG PO (21:18)
--- NOTE | 2020-12-11 22:35 | NUR.NOTE ---
Nursing Note: At beginning of shift, pt requested clarification on her neck lump. After reading up on pt, RN initiated a conversation with pt at about 22:00. RN asked pt what she remembers about date of admission; states she was in and out of it and that she thought the CT scan was a dream. Pt cannot remember if anybody told her about the mass. RN explained to pt about parotid mass, including education about location and its size. RN assessed pt's knowledge on biopsies, which she seems to understand accurately. Pt denied wanting to express feelings about the mass findings, stating she was shocked to hear it mentioned in passing r/t the requirements for her potential transfer to [place]. Pt asked if [facility] has tools to help people feel better. RN expressed that care team wants her to feel better and that the transition unit is a place to stay safe until she can go somewhere that specializes in those tools. Pt was tearful but expressed appreciation to RN. Pt states she still doesn't understand who is making decisions on her behalf r/t her care plan. RN explained that it is primarily between her doctors and the CM team with input from RNs. Pt states she is not blaming anybody but feels like she is getting the run-around and there are too many cooks in the kitchen regarding the communication of her treatment and care plan. Pt states she still does not understand why she cannot use her personal phone to pay her bills. I would feel so much better if I could just pay my bills so then I could focus on working on my problems. She states her does not know how to pay the bills and that she keeps a lot of money in her purse because she does not trust him with money. Pt also expressed difficulty coping with being labeled as mentally ill. Conversation lasted a total of about 20 minutes. Pt appeared less tearful and agitated at conclusion and expressed appreciation to RN.
[2020-12-12 04:34] VITALS: BP 116/71; PULSE 59; RESP 18; TEMP 35.8; O2SAT 97
[2020-12-12] MEDS: Levothyroxine 150 MCG TAB PO (06:40)
[2020-12-12] MEDS: Omeprazole 20 MG CAPCR PO (06:40)
[2020-12-12] MEDS: Atorvastatin 40 MG TAB PO (07:45)
[2020-12-12] MEDS: Cholecalciferol (Vitamin D3) 1,000 UNIT TAB 5000 UNITS PO (07:45)
[2020-12-12] MEDS: Cephalexin 500 MG CAP PO ×3 (07:46→21:54)
[2020-12-12] MEDS: metFORMIN 500 MG TAB PO ×2 (07:46→16:29)
[2020-12-12] MEDS: Escitalopram 10 MG TAB 30 MG PO (07:46)
[2020-12-12] MEDS: Calcium Carbonate 1.25 GM TAB PO (07:46)
[2020-12-12] MEDS: M 15 MG PO (07:46)
[2020-12-12 09:48] VITALS: BP 119/60; PULSE 51; RESP 16; TEMP 36.4; O2SAT 93
--- NOTE | 2020-12-12 09:55 | NUR.NOTE ---
Nursing Note: At 0745 on 12/12/20, this RN entered the pt.'s room to perform a head to toe assessment, suicide risk assessment, and to administer the pt.'s medications. Pt. sitting up in bed. Pt. appears slightly agitated, anxious, and restless. Pt. is fidgeting with the blanket. Pt. states that she is ...feeling really sad this morning. RN asked pt. if she was feeling sad about anything in particular, but pt. states, Nothing that I want to talk about right now. Pt. denies any suicidal or homicidal ideations or plan. Pt. agrees to inform the CPSO and RN if she starts to develop any SI/HI or plan. Pt. also states, I think it's ridiculous that I can't have a fork to eat. If I have to keep using a paper spoon, then I'm going to stop eating solid food and just have liquids. Pt. also agitated regarding the fact that she is not allowed to have her cell phone. Pt. states, I just want my cell phone so I can pay my bills. I have a banking amrita on my phone. I have two mortgages that I have to pay by Wednesday. My isn't on the account because he's not trustworthy with money. I literally just need my phone for 15 minutes so I can pay my bills. I don't even care if someone stands right next to me while I do it. Pt. also states, I'm just not going to be able to focus on my mental health until this gets dealt with. RN explaining to pt. that they are only allowed to eat with a paper spoon per hospital protocol for her safety and everyone else's safety. RN also explaining that per the pt.'s care plan the pt. isn't allowed to use her cellphone. Pt. becoming more agitated and restless, stating, You're lumping me in to this suicidal cesspool, with everyone else who is at their whit's end. But I'm fine. This was the first time I've done anything. I just feel like no one is including me in my own care. RN informed pt. that they would ask the acute care surgeon if the pt. could briefly use her cell phone to pay her bills. RN also informed the pt. that they would do what they could to keep the pt. as informed and involved in their own care as possible. Pt. states, Ok, please do. Pt. then turned around on the bed and sat facing the wall. RN will reassess as necessary.
--- NOTE | 2020-12-12 12:11 | W.NUTRFU ---
Date of service: 12/12/20 Time of Service: 12:11 Nutritional Follow up NOTE: 65 year old admitted s/p durg overdose, suicide attempt. BMi indicates obesity. Following regular diet with excellent intake. Not at nutritional risk at this time. Time Spent in Nutritional Counseling and Treatment: 0
[2020-12-12] MEDS: hydrOXYzine HCL 25 MG TAB PO (14:27)
--- NOTE | 2020-12-12 15:32 | W.PM.PROGNOT ---
Date of Service Date of service: 12/12/20 Time of Service: 15:32 Assessment and Plan Assessment and plan (1) OD (overdose of drug): Status: Acute Assessment and plan: admits to taking 8 0.5 mg ativan tabs and 30 150 mg trazodone tabs which she states was prescribed to her mother. she is medically cleared and at her baseline. mental health evaluation and patient qualifies for EE, paperwork completed, 2nd cert held up. suicide precautions and care plan in place. CPSO assigned, referrals for intpatient treatment pending. (2) UTI (urinary tract infection): Status: Acute Assessment and plan: urine grew pansensitive E coli. no further symptoms reported. will complete 5 days of keflex. (3) Type 2 diabetes mellitus: Status: Acute Assessment and plan: diabetic diet, continue metformin glucose on bmp have been stable. continue with home regimen. (4) Hypothyroidism: Status: Chronic Assessment and plan: TSH elevated, possibly d/t event. recheck with marked improvement. Should be rechecked in 6-8 weeks. continue current dosing (5) Mass of left parotid gland: Status: Acute Assessment and plan: coincidental finding on CT scan. patient denies any pain, numbness or symptoms CT reviewed with Dr Denny ENT at [facility] who recommends outpatient referral after acute psychiatric hospitalization, sooner if she develops pain or new symptoms. (6) Depression: Status: Chronic Assessment and plan: continue escitalopram added one dose hydroxizine as she was upset this afternoon about being held without a bed available today (7) Insomnia: Status: Acute Assessment and plan: continue melatonin at (8) Discharge planning issues: Status: Acute Assessment and plan: continues to be held on EE, mental health and case management following awaiting inpatient bed. discussed with DR Luque Subjective Subjective Patient reports: no new complaints, tolerating liquids well, tolerating a regular diet and afebrile Interval history since last seen: remains medically stable with no physical c/o. she is angry/frustrated about the ongoing hold. she is very tearful. Exam Const General: healthy appearing, comfortable and no acute distress Nutritional Appearance: overweight Orientation: alert, awake and oriented x3 HENMT Head: normal to inspection, normocephalic and atraumatic Mouth: oral mucosae normal Resp Effort & Inspection: normal respiratory effort Auscultation: clear to auscultation bilaterally Cardio Rate: regular rate Rhythm: regular rhythm GI Inspection: normal to inspection Palpation: soft and nontender Auscultation: normal bowel sounds Skin General skin exam: no rashes or lesions noted Neuro General: patient alert, patient awake, patient oriented x3 and moves all extremities Extrem General: normal to inspection, full ROM and no pedal edema Psych Appearance: grossly normal Speech and Movement: speech and movement normal Mood: labile mood and irritable mood Affect: hostile and blunted Attitude: cooperative Insight: fair Judgment: limited Objective Last Vital Signs Temp 36.4 C L 12/12/20 09:48 Pulse 51 L 12/12/20 09:48 Resp 16 12/12/20 09:48 BP 119/60 12/12/20 09:48 Pulse Ox 93 12/12/20 09:48 Laboratory Results - last 24 hr 12/10/20 16:30 Urine Color Yellow Urine Clarity Cloudy Urine pH 7.5 Ur Specific [place] 1.015 Urine Protein Negative Urine Ketones Negative Urine Blood Large H Urine Nitrite Negative Urine Bilirubin Negative Urine Urobilinogen 0.2 Ur Leukocyte Esterase Large H Urine RBC >50 H Urine WBC >50 H Ur Epithelial Cells Rare Urine Crystals Negative Urine Bacteria Moderate Urine Casts Negative Urine Mucus Negative Urine Other Negative Ur Culture Indicated? Yes Urine Glucose Negative
--- NOTE | 2020-12-12 15:53 | MHPN_ITS ---
Date of service: 12/12/20 Time of Service: 15:53 Mental Health Crisis Note Presenting Issue How did you arrive at the ED and why did you come: Fadia arrived Wednesday after an intentional o.d. of prescriptions that were not hers. Precipitating Factors Fadia is still a risk to self as she has not been able to show remorse to her recent serious attempt. She ended the zoom before this clinician could ask directly today. Disposition BEHAVIOR: Fadia is verbally aggressive and angry. She is threatening that she is not good and I'm getting crazier and crazier and I'm going to do something soon. She has been dismissive to staff at [facility] per their report and then demanding that they respond when she wants them to. She makes threats to speak to a refining still operator about how she believes she is being treated inhumanly. Fadia demands another psychiatric consult and this was looked into with [facility] and as she was present and cooperative with her first assessment she would not need another unless her disposition has changed. EYE CONTACT: Intense eye contact. MOOD: Mood is angry and depressed and demanding. AFFECT: Angry affect APPETITE: Fadia has been eating. SLEEP(trouble falling/staying asleep: Fadia has been sleeping fine per reports. Plan Fadia will continue to wait until an appropriate placement is found. Consult with [facility], Ingris Reed to support locating placement. She informed this clinician around 4pm that [facility] [place] accepting on T4 possibly tomorrow. Signature Clinician's Name/Title: Fartun Kay MS, [facility] Emergency Services Clinician
--- NOTE | 2020-12-12 16:31 | PDOC.CMSAFE ---
- If Service Date Differs Date of service: 12/12/20 Time of Service: 16:31 Care Management Safety Plan Status: Involuntary INVOLUNTARY FOR INPATIENT PSYCHIATRIC STABILIZATION. Safety plan has been established to meet the needs of the patient, and consideration of the care team, to adhere to patient goals, identify restrictions based on behavioral status, address nutrition, and determine allowed personal belongings, tools for hygiene and personal care. Determine level of activity including ambulation, level of supervision, visitors, and determine privileges based on behaviors and level of engagement by patient. SAFETY PLAN: 1. Will remain on SI/HI precautions and in paper clothes. 2. Will remain in room under direct supervision of one-on-one staff at all times provided by CPSO, TORCH BURNER, RUBBER TRIMMER gas shovel operator. 3. May have paper cups, plates, finger foods as well as a cardboard spoon with which to eat meal. 4. Follow [facility] Management of the Admitted Behavioral Health Patient policy. 5. Shower allowed, at the discretion of RN. 6. No personal belongings. 7. Visitors: None per [facility] Covid policy. 8. Activities: Allowed television and soft cart items at nursing discretion. 9. Bathroom privileges without supervision. 10. Phone: Allowed incoming and outgoing telephone calls to her , Caleb Beach, at nursing discretion. 11. Due to INVOLUNTARY status, patient is being held at [facility] by the Department of Mental Health (DM) until 2nd certification by [facility] Psychiatrist can be performed (within 24 hours). Staff will provide de-escalation support (CPI) as needed. If patient wishes to leave [facility], staff will contact [facility] Crisis Screener ([phone]) and On-Call Dermatological Surgeon ([phone]) as soon as possible. In the event of elopement, notify [place] State [employer] ([phone]). In the event of verbal or physical aggression towards the staff, buzz burt will be called and location of care will be transferred to the ED. Patient is currently involuntarily at [facility]. [facility] Frontline Dielectric Press Operator will continue seeking placement. Please contact the Machine Repairer Dermatological Surgeon ([phone]) for any needed changes to Safety Plan. Safety plan has been provided to interdepartmental care team. Patient will be transported by progress developer at time of discharge.
--- NOTE | 2020-12-12 17:03 | CMPROGNOTE_ITS ---
- If Service Date Differs Date of service: 12/12/20 Time of Service: 17:03 Care Management Progress Note S/O: Fadia is tearful and apologetic for having become angry and screaming earlier during her zoom meeting with ANDREW [facility]ough[facility] crisis screener. She states she does not want to scare anyone and is just frustrated. She does not understand why she is not receiving psychiatric treatment while at [facility]. CM explains to her that [facility] is not a psychiatric hospital and that we do not provide coun seling or psych med management. CM explains the process to Fadia once again and validates her feelings of frustration at having to remain at the hospital until a psych bed is secured for her. A: Fadia is a 65 year old female who remains at [facility] while awaiting a psych placement. P: Updated clinicals are [facility] to [facility] for review. Fadia will remain at [facility] on involuntary status until a psychiatric bed is secured. [facility] in conjunction with DM will continue to seek placement. CM will continue to follow.
--- NOTE | 2020-12-12 17:03 | PDOC.CMPRO ---
- If Service Date Differs Date of service: 12/12/20 Time of Service: 17:03 Care Management Progress Note S/O: Fadia is tearful and apologetic for having become angry and screaming earlier during her zoom meeting with Fartun [facility] crisis screener. She states she does not want to scare anyone and is just frustrated. She does not understand why she is not receiving psychiatric treatment while at [facility]. CM explains to her that [facility] is not a psychiatric hospital and that we do not provide counseling or psych med management. CM explains the process to Fadia once again and validates her feelings of frustration at having to remain at the hospital until a psych bed is secured for her. A: Fadia is a 65 year old female who remains at [facility] while awaiting a psych placement. P: Updated clinicals are faxed to [facility] for review. Fadia will remain at [facility] on involuntary status until a psychiatric bed is secured. [facility] in conjunction with DM will continue to seek placement. CM will continue to follow.
[2020-12-12] MEDS: Melatonin 3 MG TAB 9 MG PO (21:54)
[2020-12-13 05:24] VITALS: BP 117/69; PULSE 63; RESP 18; TEMP 36.2; O2SAT 99
[2020-12-13] MEDS: Levothyroxine 150 MCG TAB PO (06:27)
[2020-12-13] MEDS: Omeprazole 20 MG CAPCR PO (06:27)
[2020-12-13] MEDS: Cholecalciferol (Vitamin D3) 1,000 UNIT TAB 5000 UNITS PO (08:23)
[2020-12-13] MEDS: Escitalopram 10 MG TAB 30 MG PO (08:23)
[2020-12-13] MEDS: M 15 MG PO (08:23)
[2020-12-13] MEDS: Calcium Carbonate 1.25 GM TAB PO (08:23)
[2020-12-13] MEDS: Cephalexin 500 MG CAP PO ×3 (08:24→20:32)
[2020-12-13] MEDS: Atorvastatin 40 MG TAB PO (08:24)
[2020-12-13] MEDS: metFORMIN 500 MG TAB PO ×2 (08:24→16:41)
[2020-12-13 08:27] VITALS: BP 121/77; PULSE 68; RESP 17; TEMP 36.1; O2SAT 98
[2020-12-13] MEDS: Acetaminophen 500 MG TAB 1000 MG PO (09:27)
[2020-12-13] MEDS: Milk of Magnesia 30 ML CUP PO (12:50)
--- NOTE | 2020-12-13 14:24 | PDOC.CMSAFE ---
- If Service Date Differs Date of service: 12/13/20 Time of Service: 14:24 Care Management Safety Plan Status: Involuntary INVOLUNTARY FOR INPATIENT PSYCHIATRIC STABILIZATION. Safety plan has been established to meet the needs of the patient, and consideration of the care team, to adhere to patient goals, identify restrictions based on behavioral status, address nutrition, and determine allowed personal belongings, tools for hygiene and personal care. Determine level of activity including ambulation, level of supervision, visitors, and determine privileges based on behaviors and level of engagement by patient. SAFETY PLAN: 1. Will remain on SI/HI precautions and in paper clothes. 2. Will remain in room under direct supervision of one-on-one staff at all times provided by CPSO, DANIEL, MATH AND SCIENCE INSTRUCTOR electric furnace operator. 3. May have paper cups, plates, finger foods as well as a cardboard spoon with which to eat meal. 4. Follow [facility] Management of the Admitted Behavioral Health Patient policy. 5. Shower allowed, at the discretion of RN. 6. No personal belongings. 7. Visitors: None per [facility] Covid policy. 8. Activities: Allowed television and soft cart items at nursing discretion. 9. Bathroom privileges without supervision. 10. Phone: Allowed incoming and outgoing telephone calls to her , Caleb Beach, her sons, and her friend Mary Jane Arenas, at nursing discretion. Fadia is also allowed to use of her cell phone. 11. Due to INVOLUNTARY status, patient is being held at [facility] by the Department of Mental Health ([facility]) until 2nd certification by [facility] Psychiatrist can be performed (within 24 hours). Staff will provide de-escalation support (CPI) as needed. If patient wishes to leave [facility], staff will contact [facility] Crisis Screener ([phone]) and On-Call Derrick Car Operator ([phone]) as soon as possible. In the event of elopement, notify [place] State Police ([phone]). In the event of verbal or physical aggression towards the staff, buzz burt will be called and location of care will be transferred to the ED. Patient is currently involuntarily at [facility]. [facility] Frontline Internet Designer will continue seeking placement. Please contact the Placement Coordinator Derrick Car Operator ([phone]) for any needed changes to Safety Plan. Safety plan has been provided to interdepartmental care team. Patient will be transported by prosthodontist/educator at time of discharge.
--- NOTE | 2020-12-13 14:26 | NUR.NOTE ---
Nursing Note: At 1420 on 12/13/20, this RN answered a call from Fartun from [facility]. Fartun informed the RN that there are no beds available for the pt. today (12/13/20), but that there may be a bed available tomorrow (12/14/20) at [facility], so long as the pt. agreed to be sensitive to the [facility] population there. Fartun asked the RN to ask the pt. if the pt. would agree to be sensitive and would be willing to be placed in the same unit at the [facility]. RN put Fartun on hold, went and spoke with the pt. (who agreed to be sensitive), then took Fartun off of hold and informed her of the pt.'s answer. Fartun informed the RN that they would notify [facility] and that someone from [facility] would be calling to do a more formal screening of the pt. via phone shortly. RN will reassess as necessary.
--- NOTE | 2020-12-13 15:11 | PGE_ITS ---
Date of Service Date of service: 12/13/20 Time of Service: 15:11 Assessment and Plan Assessment and plan (1) OD (overdose of drug): Start date: 12/13/20 Start time: 15:13 Status: Acute Assessment and plan: admits to taking 8 0.5 mg ativan tabs and 30 150 mg trazodone tabs which she states was prescribed to her mother. she is medically cleared and at her baseline. mental health evaluation and patient qualifies for EE, paperwork completed, 2nd cert held up. suicide precautions and care plan in place. CPSO assigned, referrals for intpatient treatment pending. (2) UTI (urinary tract infection): Start date: 12/13/20 Start time: 15:18 Status: Acute Assessment and plan: urine grew pansensitive E coli. no further symptoms reported. will complete 5 days of keflex. (3) Type 2 diabetes mellitus: Start date: 12/13/20 Start time: 15:18 Status: Acute Assessment and plan: diabetic diet, continue metformin glucose on bmp have been stable. continue with home regimen. (4) Hypothyroidism: Start date: 12/13/20 Start time: 15:18 Status: Chronic Assessment and plan: TSH elevated, possibly d/t event. recheck with marked improvement. Should be rechecked in 6-8 weeks. continue current dosing (5) Mass of left parotid gland: Start date: 12/13/20 Start time: 15:18 Status: Acute Assessment and plan: coincidental finding on CT scan. patient denies any pain, numbness or symptoms CT reviewed with Dr Denny ENT at [facility] who recommends outpatient referral after acute psychiatric hospitalization, sooner if she develops pain or new symptoms. (6) Depression: Start date: 12/13/20 Start time: 15:18 Status: Chronic Assessment and plan: continue escitalopram added one dose hydroxizine as she was upset this afternoon about being held without a bed available today (7) Insomnia: Start date: 12/13/20 Start time: 15:18 Status: Acute Assessment and plan: continue melatonin at HS (8) Discharge planning issues: Start date: 12/13/20 Start time: 15:19 Status: Acute Assessment and plan: continues to be held on EE, mental health and case management following awaiting inpatient bed. discussed with DR Luque Subjective Subjective Patient reports: no new complaints Interval history since last seen: Not having any thoughts of SI or HI, would like something to help move bowels. Exam Const General: healthy appearing, comfortable and no acute distress Nutritional Appearance: overweight Orientation: alert, awake and oriented x3 HENMT Head: normal to inspection, normocephalic and atraumatic Mouth: oral mucosae normal Resp Effort & Inspection: normal respiratory effort Auscultation: clear to auscultation bilaterally Cardio Rate: regular rate Rhythm: regular rhythm GI Inspection: normal to inspection Palpation: soft and nontender Auscultation: normal bowel sounds Skin General skin exam: no rashes or lesions noted Neuro General: patient alert, patient awake, patient oriented x3 and moves all extremities Extrem General: normal to inspection, full ROM and no pedal edema Psych Appearance: grossly normal Speech and Movement: speech and movement normal Mood: labile mood and irritable mood Affect: hostile and blunted Attitude: cooperative Insight: fair Judgment: limited Objective Last Vital Signs Temp 36.1 C L 12/13/20 08:27 Pulse 68 12/13/20 08:27 Resp 17 12/13/20 08:27 BP 121/77 12/13/20 08:27 Pulse Ox 98 12/13/20 08:27
[2020-12-13 15:18] VITALS: BP 127/79; PULSE 66; RESP 16; TEMP 36.2; O2SAT 97
--- NOTE | 2020-12-13 18:19 | W.PM.DS.N ---
Date of service: 12/13/20 Time of Service: 18:19 DS: Diagnosis Discharge Diagnosis (1) OD (overdose of drug): Status: Acute (2) Depression: Status: Chronic (3) UTI (urinary tract infection): Status: Acute (4) Mass of left parotid gland: Status: Acute (5) Type 2 diabetes mellitus: Status: Acute (6) Hypothyroidism: Status: Chronic (7) Insomnia: Status: Acute (8) COVID-19 ruled out by laboratory testing: Status: Ruled-out Discharge Plan Disposition Patient Disposition: [facility] Condition: Stable Discharge Details Reason For Visit: DRUG OD Admit Date/Time: 12/11/20 16:46 Admit Provider: Albaro Liu Attending Provider: Albaro Liu Primary Care Provider: Fela Quiroga [facility] Course Hospital Course: Ms Carr is a 65 year old female with PMHx of depression, post-surgical hypothyroidism, type 2 DM, insomnia, who was admitted to [facility] hospitalist service on 12/09/2020 initially voluntarily, but then switched to EE status after a suicide attempt. The patient had locked herself in the bathroom after taking an overdose of her mother's (reportedly) ativan and trazodone. Her broke the bathroom door when she had become unresponsive. The patient had been maintained on her home medications. Her medical workup revealed a left parotid mass which will need a routine follow up with [facility] ENT (CT was reviewed by Dr Denny) after her psychiatric hospitalization, but sooner if the patient develops symptoms. Additionally, the patient is being treated with keflex for a durbin-sensitive E. Coli UTI (day 3). She is medically cleared for a discharge to a psychiatric facility. The patient was accepted in transfer to [facility] by GRISEL Brito. For patient's medications, please, look at the MAR rather than the list below, which reflects her outpatient prescriptions. Home Meds and New Rx's Prescriptions: No Action atorvastatin 40 MG tablet 40 mg PO DAILY RF: 0 metformin 1,000 MG tablet 1,000 mg PO DAILY RF: 0 levothyroxine 150 MCG tablet 150 mcg PO DAILY RF: 0 oxybutynin chloride 15 MG tablet extended release 24hr 15 mg PO DAILY RF: 0 escitalopram oxalate [Lexapro] 20 mg tablet 30 mg PO DAILY RF: 0 omeprazole 20 mg capsule,delayed release(DR/EC) 20 mg PO DAILY RF: 0 cholecalciferol (vitamin D3) [Vitamin D3] 5,000 unit Tablet 5,000 unit PO DAILY RF: 0 Jaylan Mag Zinc Plus D3 333 mg-133 unit -133 mg-5 mg Tablet 1 tab PO DAILY RF: 0 ibuprofen 600 mg tablet 600 mg PO TID PRNQty: 90 RF: 3 acetaminophen 500 mg capsule 1,000 mg PO Q8H PRN (Reason: pain) Qty: 90 RF: 0 Discharge Instructions Referrals: ENT,[facility] [OTHER] - (left parotid mass) Activity:: Activity as Tolerated Diet:: Carb Counting DS: Summary Time Spent with Patient providing and/or coordinating discharge services: Greater than 30 minutes Status at Discharge Functional status at discharge: independent ambulation Overall status at discharge: patient is not back to baseline Mental Status: mental status grossly normal (irritable, impulsive, poor insight) Speech and Movement: speech and movement normal Mood: labile mood and irritable mood Affect: hostile and blunted Exam Narrative Exam Narrative: Exam as completed by Martha Gold NP Const General: healthy appearing, comfortable and no acute distress Nutritional Appearance: overweight Orientation: alert, awake and oriented x3 HENMT Head: normal to inspection, normocephalic and atraumatic Mouth: oral mucosae normal Resp Effort & Inspection: normal respiratory effort Auscultation: clear to auscultation bilaterally Cardio Rate: regular rate Rhythm: regular rhythm GI Inspection: normal to inspection Palpation: soft and nontender Auscultation: normal bowel sounds Skin General skin exam: no rashes or lesions noted Neuro General: patient alert, patient awake, patient oriented x3 and moves all extremities Extrem General: normal to inspection, full ROM and no pedal edema Psych Appearance: grossly normal Speech and Movement: speech and movement normal Mood: labile mood and irritable mood Affect: hostile and blunted Attitude: cooperative Insight: fair Judgment: limited DS: Data Vitals/I&O Vitals and I&O: Vital Signs Temperature 36.2 C L 12/13/20 15:18 Temperature Source Tympanic 12/13/20 15:18 Pulse 66 12/13/20 15:18 Pulse Rhythm Regular 12/13/20 15:23 Pulse 66 12/09/20 19:10 Respiratory Rate 16 12/13/20 15:18 Respiratory Effort Non-Labored 12/13/20 15:23 Respiratory Depth Normal 12/13/20 15:23 Respiratory Pattern Normal 12/13/20 15:23 Blood Pressure 127/79 12/13/20 15:18 Blood Pressure Mean 65 12/09/20 19:00 Pulse Oximetry 97 12/13/20 15:18 Respiratory End-tidal CO2 37 12/09/20 19:10 Oxygen Delivery Method Room Air 12/13/20 15:18 Oxygen Flow Rate 0 12/13/20 15:18 End Tidal Co2 36 12/09/20 16:05 Pain Level 0 12/13/20 15:23 Comment 12/13/20 15:23 Intake & Output 12/12/20 12/13/20 12/13/20 23:59 11:59 23:59 Intake Total 390 / 670 1200 / 1920 720 / 1920 Balance 390 / 670 1200 / 1920 720 / 1920 Intake: Oral 390 / 670 1200 / 1920 720 / 1920 Other: Urine Color Yellow Yellow Urine Appearance Clear Clear Urine Odor None None Voiding Methods Toilet Toilet Toilet Diaper Data Completed and Pending Completed studies during hospitalization [Text1]: CXR: Limited exam due to poor pulmonary inflation. No acute abnormality. XR pelvis: Limited exam. No gross evidence of an acute abnormality. Head CT: No acute intracranial abnormality. Soft tissue air in the right cheek. No hematoma or drainable collection. No adjacent fracture. C-spine CT: Degenerative changes, no fracture. 2.2 centimeter left parotid mass. Biopsy could be considered. 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
--- NOTE | 2020-12-13 18:37 | CMPROGNOTE_ITS ---
- If Service Date Differs Date of service: 12/13/20 Time of Service: 18:37 Care Management Progress Note S/O: Fadia is pleasant at the start of her day. She has been journaling and she shares some of the insight she has gained through writing down her thoughts on paper. By the afternoon, she becomes agitated, demanding, raising her voice at . She alleges staff are keeping her in seclusion and demands to be able to walk the halls of the hospital. When told she is able to walk around the transition area, she becomes more agitated and says she's unable to because there is equipment everywhere. She further demands internet access, her cell phone, and the ability to make unrestricted phone calls. CM lets her know she is able to have her cell phone and can access internet on her phone, at which time she informs me that her cell phone is at home and her has lost the corrugator to the phone. CM advises her to call family to see if they can bring her cell phone to the hospital. She is also told nursing staff can charge the phone for her as several charging stations are located throughout the hospital. Fadia also demands to know who or what gives [facility] the right to hold her here at the hospital but when attempts to explain to her once again that her suicide attempt has resulted in her being placed in the custody of the Department of Mental Health, she becomes even more agitated. Fadia eventually tells CM to never mind, lays down on the bed and pulls the covers over her head at which point CM exits the room. A: Fadia is a 65 year old female admitted to [facility] on 12/11/20 for an intentional overdose. P: Fadia will remain at [facility] on involuntary status while she awaits placement. Referrals have been sent to [facility] and [facility] for review. [facility] and [facility] continue to seek placement. CM will continue to follow.
[2020-12-13] MEDS: hydrOXYzine HCL 25 MG TAB PO (20:32)
[2020-12-13 21:00] VITALS: BP 136/77; PULSE 60; RESP 16; TEMP 36.3; O2SAT 95
[2020-12-13] MEDS: Melatonin 3 MG TAB 9 MG PO (22:27)
[2020-12-14] VITALS: BP 110/63; PULSE 57; RESP 18; TEMP 36; O2SAT 94
[2020-12-14] MEDS: Levothyroxine 150 MCG TAB PO (06:58)
[2020-12-14 06:59] VITALS: BP 132/73; PULSE 64; RESP 16; TEMP 36.3; O2SAT 96
[2020-12-14] MEDS: Cholecalciferol (Vitamin D3) 1,000 UNIT TAB 5000 UNITS PO (08:33)
[2020-12-14] MEDS: M 15 MG PO (08:33)
[2020-12-14] MEDS: Omeprazole 20 MG CAPCR PO (08:34)
[2020-12-14] MEDS: metFORMIN 500 MG TAB PO (08:34)
[2020-12-14] MEDS: Calcium Carbonate 1.25 GM TAB PO (08:34)
[2020-12-14] MEDS: Atorvastatin 40 MG TAB PO (08:34)
[2020-12-14] MEDS: Cephalexin 500 MG CAP PO ×2 (08:34→13:57)
[2020-12-14] MEDS: Escitalopram 10 MG TAB 30 MG PO (09:29)
--- NOTE | 2020-12-14 10:41 | DSE_ITS ---
Date of service: 12/14/20 Time of Service: 10:41 DS: Diagnosis Discharge Diagnosis (1) OD (overdose of drug): Start date: 12/14/20 Start time: 10:41 Status: Acute Asessment and Plan: EE after over dosing on trazodone mental health evaluation she EE paperwork completed, suicide precautions and care plan in place. CPSO assigned, referrals for intpatient treatment pending. (2) Depression: Start date: 12/14/20 Start time: 10:43 Status: Chronic Asessment and Plan: accepted to [place], as above (3) UTI (urinary tract infection): Start date: 12/14/20 Start time: 10:43 Status: Acute Asessment and Plan: will finish 5 day course keflex found [employer], grew E. coli pansensitive (4) Type 2 diabetes mellitus: Start date: 12/14/20 Start time: 10:46 Status: Acute Asessment and Plan: continue outpatient med (5) Hypothyroidism: Start date: 12/14/20 Start time: 10:46 Status: Chronic Asessment and Plan: continue outpatient med (6) COVID-19 ruled out by laboratory testing: Start date: 12/14/20 Start time: 10:47 Status: Ruled-out Asessment and Plan: Negative covid test. above case discussed with Dr. Strickland Discharge Plan Disposition Patient Disposition: [facility] Condition: Stable Discharge Details Reason For Visit: DRUG OD Admit Date/Time: 12/11/20 16:46 Admit Provider: Albaro Liu Attending Provider: Albaro Liu Primary Care Provider: Fela Quiroga Hospital Course Hospital Course: Ms Carr is a 65 year old female with PMHx of depression, post-surgical hypothyroidism, type 2 DM, insomnia, who was admitted to [facility] hospitalist service on 12/09/2020 initially voluntarily, but then switched to EE status after a suicide attempt. The patient had locked herself in the bathroom after taking an overdose of her mother's (reportedly) ativan and trazodone. Her broke the bathroom door when she had become unresponsive. The patient had been maintained on her home medications. Her medical workup revealed a left parotid mass which will need a routine follow up with [facility] (CT was reviewed by Dr Denny) after her psychiatric hospitalization, but sooner if the patient develops symptoms. Additionally, the patient is being treated with keflex for a durbin-sensitive E. Coli UTI (day 3). She is medically cleared for a discharge to a psychiatric facility. The patient was accepted in transfer to [facility].. For patient's medications, please, look at the MAR rather than the list below, which reflects her outpatient prescriptions. Home Meds and New Rx's Prescriptions: No Action atorvastatin 40 MG tablet 40 mg PO DAILY RF: 0 metformin 1,000 MG tablet 1,000 mg PO DAILY RF: 0 levothyroxine 150 MCG tablet 150 mcg PO DAILY RF: 0 oxybutynin chloride 15 MG tablet extended release 24hr 15 mg PO DAILY RF: 0 escitalopram oxalate [Lexapro] 20 mg tablet 30 mg PO DAILY RF: 0 omeprazole 20 mg capsule,delayed release(DR/EC) 20 mg PO DAILY RF: 0 cholecalciferol (vitamin D3) [Vitamin D3] 5,000 unit Tablet 5,000 unit PO DAILY RF: 0 Jaylan Mag Zinc Plus D3 333 mg-133 unit -133 mg-5 mg Tablet 1 tab PO DAILY RF: 0 ibuprofen 600 mg tablet 600 mg PO TID PRNQty: 90 RF: 3 acetaminophen 500 mg capsule 1,000 mg PO Q8H PRN (Reason: pain) Qty: 90 RF: 0 Discharge Instructions Additional Instructions: Transfer to [facility] Referrals: ENT,[facility] [place]OTHER] - (left parotid mass) Activity:: Activity as Tolerated Diet:: Carb Counting Discharge Data Discharge Date/Time-TO BE ENTERED AT DEPARTURE: 12/14/20 10:49 DS: Summary Time Spent with Patient providing and/or coordinating discharge services: Greater than 30 minutes Status at Discharge Functional status at discharge: independent ambulation Overall status at discharge: patient is back to baseline Mental Status: mental status grossly normal Speech and Movement: speech and movement normal Mood: labile mood and irritable mood Affect: hostile and blunted Exam Const General: healthy appearing, comfortable and no acute distress Nutritional Appearance: overweight Orientation: alert, awake and oriented x3 HENMT Head: normal to inspection, normocephalic and atraumatic Mouth: oral mucosae normal Resp Effort & Inspection: normal respiratory effort Auscultation: clear to auscultation bilaterally Cardio Rate: regular rate Rhythm: regular rhythm GI Inspection: normal to inspection Palpation: soft and nontender Auscultation: normal bowel sounds Skin General skin exam: no rashes or lesions noted Neuro General: patient alert, patient awake, patient oriented x3 and moves all extremities Extrem General: normal to inspection, full ROM and no pedal edema Psych Appearance: grossly normal Mental Status: mental status grossly normal Speech and Movement: speech and movement normal Mood: labile mood and irritable mood Affect: hostile and blunted Attitude: cooperative Insight: fair Judgment: limited DS: Data Vitals/I&O Vitals and I&O: Vital Signs Temperature 36.3 C L 12/14/20 06:59 Temperature Source Tympanic 12/14/20 06:59 Pulse 64 12/14/20 06:59 Pulse Rhythm Regular 12/14/20 10:02 Pulse 66 12/09/20 19:10 Respiratory Rate 16 12/14/20 06:59 Respiratory Effort Non-Labored 12/14/20 10:02 Respiratory Depth Normal 12/14/20 10:02 Respiratory Pattern Normal 12/14/20 10:02 Blood Pressure 132/73 12/14/20 06:59 Blood Pressure Mean 65 12/09/20 19:00 Pulse Oximetry 96 12/14/20 06:59 Respiratory End-tidal CO2 37 12/09/20 19:10 Oxygen Delivery Method Room Air 12/14/20 06:59 Oxygen Flow Rate 0 12/14/20 06:59 End Tidal Co2 36 12/09/20 16:05 Pain Level 0 12/14/20 06:59 Comment 12/13/20 15:23 Intake & Output 12/13/20 12/13/20 12/14/20 11:59 23:59 11:59 Intake Total 1200 / 2410 960 / 2410 1880 / 1880 Balance 1200 / 2410 960 / 2410 1880 / 1880 Intake: Oral 1200 / 2410 960 / 2410 1880 / 1880 Other: Urine Color Yellow Urine Appearance Clear Urine Odor None Voiding Methods Toilet Toilet Toilet Diaper Data Completed and Pending Completed studies during hospitalization [Text1]: PROCEDURE INFORMATION: Exam: Portable XR Chest, 1 View Exam date and time: 12/09/2020 5:23 PM Age: 65 years old Clinical indication: Condition or disease; Other: Overdose TECHNIQUE: Imaging protocol: Portable XR of the chest Views: 1 view. COMPARISON: CR XR CHEST 2V PA LATERAL 12/29/2019 8:30 AM FINDINGS: Lungs: There is a poor inspiratory effort. There is mild pulmonary vascular congestion. Pleural space: Unremarkable. No pleural effusion. No pneumothorax. Heart/Mediastinum: Unremarkable. No cardiomegaly. Bones/joints: There are degenerative changes of the thoracic spine. IMPRESSION: Poor inspiratory effort. Mild pulmonary vascular congestion. Osseous findings as above. Exam(s) PROCEDURE INFORMATION: Exam: CT Head Without Contrast Exam date and time: 12/09/2020 5:09 PM Age: 65 years old Clinical indication: Injury or trauma; Blunt trauma (contusions or hematomas); Patient HX: AMS, ? fall TECHNIQUE: Imaging protocol: Computed tomography of the head without contrast. COMPARISON: No relevant prior studies available. FINDINGS: Brain: Normal. No hemorrhage. Unremarkable white matter. No mass effect. Cerebral ventricles: No ventriculomegaly. Bones/joints: See Soft tissues finding. Paranasal sinuses: Visualized sinuses are unremarkable. No fluid levels. Mastoid air cells: Visualized mastoid air cells are well aerated. Soft tissues: Soft tissue emphysema in the right cheek of unclear etiology. Occult fracture is not excluded. IMPRESSION: 1. No intracranial hemorrhage or skull fracture. 2. Soft tissue emphysema in the right cheek of unclear etiology. Occult fracture is not excluded. COMPARISON: CR RT HIP COMPLETE AP PELVIS 11/22/2014 12:01 PM FINDINGS: Bones/joints: There is no gross evidence of a fracture. Soft tissues: Unremarkable. Other findings: The study is limited due to patient body habitus. There are calcified uterine leiomyoma. IMPRESSION: Limited study secondary to patient body habitus. No gross evidence of a fracture. Calcified uterine leiomyoma. 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
[2020-12-14] MEDS: Bisacodyl 5 MG TABEC PO (14:26)
--- NOTE | 2020-12-14 16:46 | CMDISCH_ITS ---
- If Service Date Differs Date of service: 12/14/20 Time of Service: 16:46 LACE Index Scoring Tool - Questions: Length of Stay (in days): 4 - 6 Acuity (Admit via E.D.?): Yes Comorbidities: Diabetes w/o Complication E.D. Visits: 1 - Answers: Total Score: 9 Risk of Readmission: Low Risk Care Management Discharge Reason for Hospitalization: Drug overdose. Discharge Plan: Fadia was transported to [facility] via [facility]. She was being held involuntarily by [facility], which was explained to her at length multiple times during her stay at [facility]. attempted to keep her as comfortable as possible, while also keeping her safe, per hospital policy. All of her requests were attended to including having personal hygiene items, use of the phone/internet when available (she was able to use the hospital phone, but her personal phone was not delivered by her until day of discharge). She will follow up with [facility] and her PCP when she returns home. She was not agreeable to placement, but it was deemed necessary by the Psychiatrist from [facility]. Patient/Family Education Needs: Review discharge instructions and expectations for placement, discussion of self care needs and goals of care. Services Needed at Discharge: Psychiatric Facility (), Transportation ([facility])
[2020-12-14] MEDS: Ibuprofen 600 MG TAB PO (16:47)
--- NOTE | 2020-12-14 16:48 | NUR.NOTE ---
Nursing Note: 12/05/20 16:50 17:00 Metformin 500 mg administered right before patient discharged, MAR not allowing documentation on this dose.
== END 2020-12-14 16:42 | disposition short-term general hospital (02) | DRG 917 ==
LOC: ER 18:52 → MS 19:28
PROVIDERS: Internal Medicine; Nurse Practitioner Acute Care; Admitting Provider General Practice; Emergency Provider Physician Assistant; PCP Family Medicine; Visit Provider General Practice
DX: T42.4X2A Poisoning by benzodiazepines, intentional self-harm, initial encounter (principal); G92 Toxic encephalopathy; N39.0 Urinary tract infection, site not specified; T43.212A Poisoning by selective serotonin and norepinephrine reuptake inhibitors, intentional self-harm, initial encounter; F32.9 Major depressive disorder, single episode, unspecified; E11.9 Type 2 diabetes mellitus without complications; K21.9 Gastro-esophageal reflux disease without esophagitis; E78.5 Hyperlipidemia, unspecified; E03.9 Hypothyroidism, unspecified; G47.00 Insomnia, unspecified; E66.9 Obesity, unspecified; E04.2 Nontoxic multinodular goiter; E87.6 Hypokalemia; R06.89 Other abnormalities of breathing; F10.129 Alcohol abuse with intoxication, unspecified; B96.20 Unspecified Escherichia coli [E. coli] as the cause of diseases classified elsewhere; R31.9 Hematuria, unspecified; Z11.52 Encounter for screening for COVID-19; K11.8 Other diseases of salivary glands
CPT/HCPCS: 36415; 36416; 80048; 80053; 80307; 82805; 82962; 87077; 93005; 96361; 96365; 96366; 96368; 99222; 99226; 99233; 99239; 99285; 70450; 71045; 72125; 72170; 80320; 80329; 81003; 81015; 83735; 84132; 84443; 84484; 85025; 87086; 87186; 93010; 99219; G0378; J3480

== ENCOUNTER 2021-01-13 01:57 | Outpatient (CLI) | payer MEDICARE, SELFPAY ==
--- NOTE | 2021-01-13 | DI.MAMMO_ITS ---
EXAM: MG MAMMO DIAGNOSTIC UNI CLINICAL HISTORY: F/U ABNL MAMMO, 6 MONTH FOLLOW UP, R92.8. TECHNIQUE: Craniocaudal and mediolateral oblique Full Field Digital Mammography views of the left br east with Computer Aided Diagnosis followed by Tomosynthesis. COMPARISON: Priors available for comparison FINDINGS: Mammography/Tomosynthesis: Masses/Architectural Distortion: The asymmetric density in the upper inner quadrant of the left breas t is unchanged compared to prior examinations. The patient is status post left breast biopsy. Microcalcifictions: No suspicious pleomorphic-type are seen. Stable coarse calcifications are seen in the breast. Skin Thickening/Nipple Retraction: None. IMPRESSION: 1. No evidence of malignancy is noted. 2. Unless there is more urgent need, follow-up screening mammography is recommended, as per [employer] [employer] guidelines. 3. The findings were discussed with the patient on the date of the examination. BI-RADS Category 2 - Benign Findings Breast Density - Category B - Scattered areas of fibroglandular density Breast density Category C or D implies that the patient has dense breast tissue. Dense breast tissue can make it harder to find cancer on a mammogram. Dense breast tissue is also associated with an incr eased risk of breast cancer. This information about the result of the mammogram report was provided to the patient to raise their awareness. Use this report when you speak with the patient about their risks for breast cancer, which includes their family history. At that time, you may recommend additional screening tests (Ultrasoun d or MRI) as these tests may add significant information. A negative radiographic report should not delay biopsy if a dominant or clinically suspicious mass is present. Up to ten percent of cancers are not identified on mammography. A negative report may reinforce clinical impression. Adenosis and dense breasts may obscure an underlying neoplasm. False positive reports average 6 to 10%. Patient will receive a letter notifying them of these results.
== END 2021-01-13 02:17 ==
PROVIDERS: PCP Family Medicine; Visit Provider Family Medicine
DX: R92.8 Other abnormal and inconclusive findings on diagnostic imaging of breast (principal); R92.2 Inconclusive mammogram
CPT/HCPCS: 77061; 77065; G0279

== ENCOUNTER 2021-02-27 09:47 | Outpatient (REF) | payer MEDICARE, SELFPAY ==
[2021-02-27 14:07] LABS: Hemoglobin A1C 7.2 % (<5.7)
[2021-02-27 14:21] LABS: ALT 47 U/L (14-59); AST 33 U/L (15-37); Albumin 3.8 g/dL (3.4-5.0); Alkaline Phosphatase 113 U/L (46-116); Anion Gap 11.8 mmol/L (3-11); BUN 12 mg/dL (7-18); Bilirubin, Total 0.4 mg/dL (0.2-1.0); CO2 24.2 mmol/L (21.0-32.0); CREATININE 0.7 mg/dL (0.55-1.02); Calcium 8.8 mg/dL (8.5-10.1); Calculated LDL 72 mg/dL (<100); Chloride 106 mmol/L (98-107); Cholesterol 163 mg/dL (<200); Glucose 156 mg/dL (74-106); HDL Cholesterol 74 mg/dL (40-60); Potassium 4.6 mmol/L (3.5-5.1); Sodium 142 mmol/L (136-145); TSH (W/Ref FT4) 1.12 uIU/mL (0.36-3.74); Triglyceride 89 mg/dL (<150)
== END 2021-02-27 09:48 | disposition home or self-care (01) ==
LOC: NCHCN 09:47
PROVIDERS: PCP Family Medicine; Visit Provider Family Medicine
DX: E11.9 Type 2 diabetes mellitus without complications (principal); E03.9 Hypothyroidism, unspecified; R53.83 Other fatigue
CPT/HCPCS: 80053; 80061; 83036; 84443

== ENCOUNTER 2021-07-10 01:41 | Outpatient (CLI) | payer MEDICARE, SELFPAY ==
--- NOTE | 2021-07-10 | DI.MRI_ITS ---
Exam(s) MR ORBIT FACIAL NECK WO/W EXAM: MR ORBIT FACIAL NECK WO/W CLINICAL HISTORY: PAROTID MASS LT, K11.8 TECHNIQUE: Multiplanar multisequence MRI was performed. CONTRAST MATERIAL: IV Contrast: 20 mL of Dotarem contrast administered. COMPARISON: CT CT HEAD CERVICAL SPINE WO from 12/09/2020 FINDINGS: SALIVARY GLANDS: There is a well-circumscribed T2 bright lobulated mass in the superficial lobe of th e left parotid gland, measuring 2.3 cm AP by 1.5 cm wide by 1.7 cm craniocaudal. This exhibits relat ively homogeneous enhancement following contrast injection. No evidence of invasion of the adjacent mandible and masseter muscle. 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 Small benign-appearing l ymph nodes noted in the neck. No gross lymphadenopathy. No other findings in the left parotid gland and the right parotid gland appears unremarkable as do th e submandibular glands. NASOPHARYNX: Tissues of the nasopharynx are symmetrical. No mass. OROPHARYNX: Uvula is midline. No abnormal masses HYPOPHARYNX: Epiglottis and valleculae appear unremarkable. PARANASAL SINUSES: Visualized maxillary sinuses are clear. There is a small retention cyst in the ri ght sphenoid sinus measuring 7 x 5 millimeters. IMPRESSION: There is a well-defined lobulated mass in the left parotid gland as described above, measuring 23 mil limeters AP by 15 millimeters wide by 17 millimeters craniocaudal. This exhibits signal characterist ics and enhancement pattern of a pleomorphic adenoma. DATA REPOSITORY:
[2021-07-10 09:39] LABS: BUN 13 mg/dL (7-18); CREATININE 0.7 mg/dL (0.55-1.02)
[2021-07-10] MEDS: Normal Saline Flush 10 ML SYR IVP (09:56)
[2021-07-10] MEDS: Gadoterate meglumine 20 ML VIAL IVP (09:57)
== END 2021-07-10 02:01 ==
PROVIDERS: PCP Family Medicine; Visit Provider Physician Assistant
DX: K11.8 Other diseases of salivary glands (principal); D11.0 Benign neoplasm of parotid gland; J34.1 Cyst and mucocele of nose and nasal sinus
CPT/HCPCS: 84520; 70543; 82565

== ENCOUNTER 2022-02-16 20:38 | Outpatient (REF) | payer MEDICARE, SELFPAY ==
[2022-02-18 11:34] LABS: COVID-19 RT-PCR UVMMC Result Negative (Negative)
== END 2022-02-16 20:39 | disposition home or self-care (01) ==
LOC: NCHCN 20:38
PROVIDERS: PCP Family Medicine; Visit Provider Family Medicine
DX: Z20.822 Contact with and (suspected) exposure to COVID-19 (principal); J02.9 Acute pharyngitis, unspecified
CPT/HCPCS: U0003

== ENCOUNTER 2022-05-02 20:01 | Outpatient (REF) | payer MEDICARE, SELFPAY ==
[2022-05-04 15:29] LABS: COVID-19 RT-PCR UVMMC Result Negative (Negative)
== END 2022-05-02 20:02 | disposition home or self-care (01) ==
LOC: LBN 20:01
PROVIDERS: PCP Family Medicine; Visit Provider Physician Assistant Medical
DX: J02.9 Acute pharyngitis, unspecified (principal); J06.9 Acute upper respiratory infection, unspecified; Z20.822 Contact with and (suspected) exposure to COVID-19
CPT/HCPCS: U0003; 87070

== ENCOUNTER 2022-05-13 15:10 | Outpatient (REF) | payer MEDICARE, SELFPAY ==
[2022-05-13 20:56] LABS: Hemoglobin A1C 12.5 % (<5.7)
[2022-05-13 21:12] LABS: TSH (W/Ref FT4) 5.61 uIU/mL (0.36-3.74)
[2022-05-13 21:41] LABS: FREE T4 1.04 ng/dL (0.76-1.46)
== END 2022-05-13 15:11 | disposition home or self-care (01) ==
LOC: NCHCN 15:10
PROVIDERS: PCP Family Medicine; Visit Provider Family Medicine
DX: E03.9 Hypothyroidism, unspecified (principal); E11.9 Type 2 diabetes mellitus without complications
CPT/HCPCS: 83036; 84439; 84443

== ENCOUNTER 2022-06-25 13:47 | Outpatient (REF) | payer MEDICARE, SELFPAY ==
[2022-06-25 15:10] LABS: TSH (W/Ref FT4) 0.58 uIU/mL (0.36-3.74)
== END 2022-06-25 13:48 | disposition home or self-care (01) ==
LOC: NCHCN 13:47
PROVIDERS: PCP Family Medicine; Visit Provider Family Medicine
DX: E03.9 Hypothyroidism, unspecified (principal)
CPT/HCPCS: 84443

== ENCOUNTER → 2022-09-17 01:58 | Outpatient (CLI) | payer MEDICARE, SELFPAY ==
--- NOTE | 2022-09-17 12:30 | DI.RAD_ITS ---
Exam(s) XR KNEE RT 3V AP,LAT,FABIAN EXAM: XR KNEE RT 3V AP,LAT,FABIAN CLINICAL HISTORY: ILIOTIBIAL BAND SYNDROME, M76.30 TECHNIQUE: COMPARISON: CR XR knee LT 3V AP,lat,fabian from 02/21/2019 FINDINGS: Three views were obtained. Cartilaginous joint spaces are fairly well maintained. There is an enthe sophyte of the superior pole of the patella. No other significant bony or soft tissue abnormality se en. IMPRESSION: RADIATION DOSE DELIVERED: Total DLP
== END ==
PROVIDERS: PCP Family Medicine; Visit Provider Family Medicine
DX: M76.891 Other specified enthesopathies of right lower limb, excluding foot (principal)
CPT/HCPCS: 73562

== ENCOUNTER 2022-12-15 15:28 | Outpatient (REF) | payer MEDICARE, SELFPAY ==
[2022-12-15 14:56] LABS: Abs Immature Grans 0.02 10^3/uL (0.0-0.06); Absolute Basophil Count 0.03 10^3/uL (0.0-0.2); Absolute Lymphocyte Count 2.36 10^3/uL (1.2-3.4); Absolute Monocyte Count 0.38 10^3/uL (0.1-0.8); Absolute Neutrophil Count 4.22 10^3/uL (1.2-6.7); Basophils % 0.4; Eosinophils % 1.4; HCT 38.7 % (36.0-46.0); Immature Grans % 0.3; Lymphocytes % 33.2; MCH 26.1 pg (27.0-33.0); MCV 84 fL (80-95); MPV 10.8 fL (8.0-11.0); Monocytes % 5.3; Neutrophils % 59.4; Platelet Count 276 10^3/uL (130-400); RBC 4.59 10^6/uL (3.93-5.22); RDW 13.7 % (11.7-14.6); RDW-SD 42.3 fL; WBC 7.11 10^3/uL (4.4-10.8)
[2022-12-15 15:23] LABS: ALT 49 U/L (14-59); AST 38 U/L (15-37); Alkaline Phosphatase 128 U/L (46-116); Anion Gap 10.6 mmol/L (3-11); BUN 15 mg/dL (7-18); Bilirubin, Total 0.3 mg/dL (0.2-1.0); CO2 25.4 mmol/L (21.0-32.0); CREATININE 0.7 mg/dL (0.55-1.02); Calcium 9.3 mg/dL (8.5-10.1); Chloride 102 mmol/L (98-107); Estimated GFR 93.56 (mL/min/1.73m2); Glucose 166 mg/dL (74-106); Potassium 4.6 mmol/L (3.5-5.1); Sodium 138 mmol/L (136-145); TSH (W/Ref FT4) 2.24 uIU/mL (0.36-3.74)
[2022-12-15 15:35] LABS: Total Protein 7.1 g/dL (6.4-8.2)
== END 2022-12-15 15:29 | disposition home or self-care (01) ==
LOC: NCHCN 15:28
PROVIDERS: PCP Family Medicine; Visit Provider Family Medicine
DX: E11.9 Type 2 diabetes mellitus without complications (principal); E03.9 Hypothyroidism, unspecified
CPT/HCPCS: 80053; 84443; 85025

== ENCOUNTER 2023-03-17 13:53 | Outpatient (REF) | payer MEDICARE, SELFPAY ==
[2023-03-17 14:56] LABS: Abs Immature Grans 0.02 10^3/uL (0.0-0.06); Absolute Basophil Count 0.04 10^3/uL (0.0-0.2); Absolute Eosinophil Count 0.13 10^3/uL (0.0-0.7); Absolute Lymphocyte Count 3.28 10^3/uL (1.2-3.4); Absolute Monocyte Count 0.45 10^3/uL (0.1-0.8); Absolute Neutrophil Count 3.95 10^3/uL (1.2-6.7); Basophils % 0.5; Eosinophils % 1.7; HCT 40.2 % (36.0-46.0); HGB 12.9 g/dL (11.2-15.7); Immature Grans % 0.3; Lymphocytes % 41.7; MCH 26.5 pg (27.0-33.0); MCHC 32.1 % (32.0-36.0); MCV 83 fL (80-95); MPV 10.8 fL (8.0-11.0); Monocytes % 5.7; Neutrophils % 50.1; Platelet Count 334 10^3/uL (130-400); RBC 4.87 10^6/uL (3.93-5.22); RDW 13.7 % (11.7-14.6); RDW-SD 41.3 fL; WBC 7.87 10^3/uL (4.4-10.8)
[2023-03-17 15:07] LABS: ESR 33 mm/hr (0-30)
[2023-03-17 15:27] LABS: ALT 49 U/L (14-59); AST 31 U/L (15-37); Alkaline Phosphatase 126 U/L (46-116); Anion Gap 9.2 mmol/L (3-11); BUN 17 mg/dL (7-18); Bilirubin, Total 0.4 mg/dL (0.2-1.0); CO2 28.8 mmol/L (21.0-32.0); CREATININE 0.9 mg/dL (0.55-1.02); Calcium 9.8 mg/dL (8.5-10.1); Chloride 103 mmol/L (98-107); Estimated GFR 68.77 (mL/min/1.73m2); Glucose 135 mg/dL (74-106); Potassium 4.5 mmol/L (3.5-5.1); Sodium 141 mmol/L (136-145); Total Protein 7.9 g/dL (6.4-8.2)
[2023-03-18 14:57] LABS: Iron 51 ug/dL (50-170); Total Iron Binding Capacity 428 ug/dL (250-450); Transferrin Sat 12 % (15-50)
[2023-03-18 15:10] LABS: Ferritin 23 ng/mL (8-252)
== END 2023-03-17 13:54 | disposition home or self-care (01) ==
LOC: NCHCN 13:53
PROVIDERS: PCP Family Medicine; Visit Provider Family Medicine
DX: E11.9 Type 2 diabetes mellitus without complications (principal); K21.9 Gastro-esophageal reflux disease without esophagitis; R10.9 Unspecified abdominal pain; E78.5 Hyperlipidemia, unspecified; G25.81 Restless legs syndrome; F32.9 Major depressive disorder, single episode, unspecified; N39.41 Urge incontinence
CPT/HCPCS: 80053; 85652; 82728; 83540; 83550; 85025

== ENCOUNTER 2023-04-30 00:54 | Outpatient (CLI) | payer MEDICARE, SELFPAY ==
--- NOTE | 2023-04-30 | DI.CT_ITS ---
Exam(s) CT ABDOMEN PELVIS W EXAM: CT ABDOMEN PELVIS W CLINICAL HISTORY: ABD PAIN, R10.9. TECHNIQUE: Imaging Protocol: Axial computed tomography images with coronal and sagittal reformatted images were created and reviewed CONTRAST MATERIAL: Intravenous: Omnipaque-350 100cc Oral: None COMPARISON: CR,XR XR PORTABLE CHEST AP from 12/09/2020 FINDINGS: VISUALIZED LUNG BASES: No nodules nor pleural effusions evident. ABDOMEN: There is no ascites. LIVER: There is a tiny 2 millimeter hypodensity in the left hepatic lobe consistent with tiny benign cyst. No other significant focal hepatic findings. GALLBLADDER/BILIARY: No obvious acute gallbladder pathology. CBD is not dilated. PANCREAS: No evidence of pancreatic mass nor dilatation of the pancreatic duct. SPLEEN: Spleen is not enlarged. No obvious intrasplenic lesions. Splenic and portal veins are paten t. ADRENALS: There is a nodule in the lateral limb the left adrenal gland measuring 1.41.1 cm. Right ad renal gland unremarkable. KIDNEYS:No cysts evident. No solid renal masses. No calculi nor hydronephrosis.. ABDOMINAL AORTA: Abdominal aorta is not enlarged. LYMPH NODES:There is no retroperitoneal nor paraaortic adenopathy. ABDOMINAL WALL: No evidence of significant anterior abdominal wall nor inguinal hernia. GI: There is no evidence of bowel obstruction, free air, nor abscess. PELVIS: GI: No evidence of appendicitis.Sigmoid is redundant but without void diverticular disease. LYMPH NODES: There is no intrapelvic nor inguinal adenopathy. REPRODUCTIVE: Uterus is retroverted there is heavily calcified mass in the left adnexa measuring appr oximately 4.5 x 3.8 x 5.4 cm, not containing fat. Probably ovarian versus pedunculated calcified fib roid. No abnormal right adnexal findings. No free fluid in the pelvis. URINARY BLADDER: No calculi nor obvious masses evident OSSEOUS: Abnormal sclerotic involvement of the right ashleigh pelvic iliac bone. Possible Paget's diseas e or fibrous dysplasia but cannot exclude neoplastic involvement. No fractures. No lesions in the lumbar vertebrae. IMPRESSION: 1. There is a heavily calcified mass in the left adnexa measuring approximately 4.5 x 3.8 x 5.4 cm, n ot containing fat. Most probably ovarian or pedunculated calcified uterine fibroid. The left ovary is not seen is a separate structure. No abnormal findings in the right adnexa. No free fluid in the pelvis. Recommend follow-up ultrasound. 2. Abnormal sclerotic appearance of the right iliac bone without evidence of other significant focal osseous findings. May represent fibrous dysplasia or Paget's disease but cannot exclude neoplastic i nvolvement. 3. Findings as above. 4. RADIATION DOSE DELIVERED: 1,220mGy.cm Total DLP DATA REPOSITORY: All CT scans at this facility are submitted to the National Radiology Data Registry (NRDR) Dose Index Registry (DIR) with the [employer] (ACR). RADIATION OPTIMIZATION: All CT scans at this facility use at least one of these dose optimization te chniques: automated exposure control; mA and/or kV adjustment per patient size (includes targeted exa ms where dose is matched to clinical indication); or iterative reconstruction.
[2023-04-30] MEDS: Barium Sulfate 2% W/V-Berry Smoothie 450 ML BTL 900 ML PO (12:54)
[2023-04-30] MEDS: Omnipaque 350 MG/ML 100 ML BTL IJ (14:19)
[2023-04-30] MEDS: Normal Saline - Diluent 50 ML VIAL IJ (14:19)
[2023-04-30] MEDS: Normal Saline Flush 10 ML SYR IVP (14:21)
== END 2023-04-30 01:14 ==
PROVIDERS: PCP Family Medicine; Visit Provider Family Medicine
DX: M89.9 Disorder of bone, unspecified (principal); N83.8 Other noninflammatory disorders of ovary, fallopian tube and broad ligament; R10.9 Unspecified abdominal pain
CPT/HCPCS: 74177; J3490

== ENCOUNTER 2023-05-21 00:50 | Outpatient (CLI) | payer MEDICARE, SELFPAY ==
--- NOTE | 2023-05-21 | DI.US_ITS ---
Exam(s) US PELVIS TRANSVAGINAL EXAM: US PELVIS TRANSVAGINAL CLINICAL HISTORY: LEFT ADNEXAL MASS R19.09 TECHNIQUE: Transabdominal and transvaginal imaging was performed using standard protocol. COMPARISON: CR RT HIP COMPLETE AP PELVIS from 11/22/[address] ABDOMEN PELVIS W from 04/30/2023 FINDINGS: The trans abdominal images are limited by patient body habitus and lack of bladder distention. UTERUS: Retroverted. 5.5 x 2.7 x 3.2 cm Endometrium: 4 mm Myometrium: 10 millimeter noncalcified posterior fundal fibroid. Cervix: Small amount of fluid in cervical canal. OVARIES: Right: Not visualized Left: Ovarian tissue not visualized. There is a 4.8 x 3.6 x 4.7 centimeter mass which appears separa te from the uterus which contains multiple calcifications and shadowing. No fatty components are pre sent on CT. Calcifications were noted on a 2015 pelvic x-ray. CUL-DE-SAC: Free fluid: None. IMPRESSION: 4.8 centimeter solid mass with calcifications in the left adnexal region, presumably ovarian. It amrita ears separate from the uterus. It may be longstanding as calcifications were seen on 2015 pelvic x- ray. Surgical consult recommended. DATA REPOSITORY:
== END 2023-05-21 01:10 ==
LOC: DI 00:51
PROVIDERS: PCP Family Medicine; Visit Provider Family Medicine
DX: R19.09 Other intra-abdominal and pelvic swelling, mass and lump (principal)
CPT/HCPCS: 76830; 76856

== ENCOUNTER 2023-05-28 09:42 | Emergency (ER) | payer MEDICARE, SELFPAY ==
[2023-05-28 09:53] VITALS: BP 126/78; PULSE 80; RESP 18; TEMP 36.8; O2SAT 99
--- NOTE | 2023-05-28 10:00 | DI.RAD_ITS ---
Exam(s) XR ANKLE RT COMPLETE EXAM: XR ANKLE RT COMPLETE CLINICAL HISTORY: fall lateral ankle pain. TECHNIQUE: 2D digital imaging was performed. COMPARISON: No exams were available for comparison FINDINGS: 3 views There is an oblique fracture in distal fibula. Nondisplaced. No other fractures nor widening of the ankle mortise. Talar dome unremarkable. Small inferior calcaneal spur noted IMPRESSION: Distal fibular fracture. There is overlying soft tissue swelling. DATA REPOSITORY: RADIATION DOSE DELIVERED:
--- NOTE | 2023-05-28 10:03 | W.ED.GENAD ---
Discharge Plan Disposition Patient Disposition: Home Discharge Details Clinical Impression: Fracture of lateral malleolus of right fibula Primary Care Provider: Fela Quiroga ED Provider: Richie Doyle Home Meds and New Rx's Prescriptions: Continued atorvastatin 40 MG tablet 40 mg PO DAILY levothyroxine 150 MCG tablet 150 mcg PO DAILY oxybutynin chloride 15 MG tablet extended release 24hr 15 mg PO DAILY metformin 1,000 mg tablet 1,000 mg PO BID Januvia 100 mg tablet 100 mg PO DAILY duloxetine 60 mg capsule,delayed release(DR/EC) 90 mg PO DAILY ropinirole 2 mg tablet 2 mg PO QHS Rx Instructions: administer 1-3 hours before bedtime mirtazapine 30 mg tablet 60 mg PO QHS omeprazole 20 mg capsule,delayed release(DR/EC) 20 mg PO DAILY Jaylan Mag Zinc Plus D3 333 mg-133 unit -133 mg-5 mg Tablet 1 tab PO DAILY ibuprofen 600 mg tablet 600 mg PO TID PRNQty: 90 3RF acetaminophen 500 mg capsule 1,000 mg PO Q8H PRN (Reason: pain) Qty: 90 0RF Discharge Instructions Instructions: Ankle Fracture (ED) Additional Instructions: Please continue use [id number] pain medication as needed for discomfort. Keep your leg elevated to help with swelling and pain. It is important that you remain nonweightbearing until seen by orthopedics. return the emergency department for significant worsening of your pain, uncontrollable symptoms, or any numbness tingling or change of color to your toes. Please call the orthopedic office on Wednesday of next week to arrange your follow-up appointment and more definitive care of your ankle fracture. Referrals: [facility] [Provider Group] (Please call the office on Wednesday for arrangement of follow-up appointment for your ankle fracture) Medical Decision Making Patient presenting to the emergency department for chief complaint of mechanical fall with right ankle injury. Patient states that she was taking care of her pegs and slipped in the mud this morning injuring the lateral aspect of her right ankle. Patient denies any other injury or trauma, states no previous injury to this area. Physical exam shows significant swelling and tenderness to the lateral aspect of the ankle with lateral malleolus tenderness. Patient is nonweightbearing due to pain and discomfort. She did take medication prior to arrival. We will plan on performing radiological imaging for evaluation of suspected lateral malleolus fracture. Patient denies any need for pain medication pending results Review of radiological imaging and radiologist interpretation shows a acute fracture of the lateral malleolus. No other noted fracture or dislocation was noted. Patient placed in a posterior stirrup splint and patient stated she would prefer to use crutches. Patient placed on referral list to follow-up with orthopedist. After discussion of diagnosis and plan of care patient has no further needs, questions, or concerns and states clear understanding to return to the emergency department for any worsening symptoms. This documentation was generated using [employer] dictation system, please disregard any oddities of phrase or misspellings. Imaging Data Radiologic Study: Imaging: X-Ray Radiologist's impression: Exam(s) XR ANKLE RT COMPLETE EXAM: XR ANKLE RT COMPLETE CLINICAL HISTORY: fall lateral ankle pain. TECHNIQUE: 2D digital imaging was performed. COMPARISON: No exams were available for comparison FINDINGS: 3 views There is an oblique fracture in distal fibula. Nondisplaced. No other fractures nor widening of the ankle mortise. Talar dome unremarkable. Small inferior calcaneal spur noted IMPRESSION: Distal fibular fracture. There is overlying soft tissue swelling. HPI General Mode of arrival: ambulatory. Date/Time Provider Initiated Documentation: 05/28/23 09:58. Limitations to Documentation: no limitations. Information obtained by: patient and RN notes reviewed. History of Present Illness 68 year old F presents to the emergency department with the chief complaint of Fall with right ankle injury, described as moderate, with intensity rated at 8. Quality is described as aching, and is localized to the right and lower extremity. Patient reports no radiation. Patient started experiencing this hour(s) (2) and it has been constant. No relieving factors improve symptom(s), and Immobilization improves symptom(s), Movement worsens symptoms . Patient notes no other symptoms.. Patient did receive the following treatments prior to arrival, NSAID Related Data Home Medications Medication Instructions Recorded Confirmed atorvastatin 40 mg tablet 40 mg PO DAILY 06/01/18 12/09/20 levothyroxine 150 mcg tablet 150 mcg PO DAILY 06/01/18 12/09/20 oxybutynin chloride 15 mg 15 mg PO DAILY 06/01/18 12/09/20 tablet,extended release 24 hr acetaminophen 500 mg capsule 1,000 mg PO Q8H PRN pain #90 caps 10/25/18 12/09/20 calcium carb 333 mg-vit D3 133 1 tab PO DAILY 10/25/18 12/09/20 unit-mag ox 133 mg-zinc oxide 5 mg tab (Jaylan Mag Zinc Plus D3) ibuprofen 600 mg tablet 600 mg PO TID PRN #90 tabs 10/25/18 12/09/20 omeprazole 20 mg capsule,delayed 20 mg PO DAILY 12/09/20 12/09/20 release duloxetine 60 mg capsule,delayed 90 mg PO DAILY 05/24/23 release metformin 1,000 mg tablet 1,000 mg PO BID 05/24/23 mirtazapine 30 mg tablet 60 mg PO QHS 05/24/23 ropinirole 2 mg tablet 2 mg PO QHS 05/24/23 sitagliptin phosphate 100 mg 100 mg PO DAILY 05/24/23 tablet (Januvia) Previous Rx's Medication Instructions Recorded acetaminophen 500 mg capsule 1,000 mg PO Q8H PRN pain #90 caps 10/25/18 ibuprofen 600 mg tablet 600 mg PO TID PRN #90 tabs 10/25/18 Allergies Allergy/AdvReac Type Severity Reaction Status Date / Time No Known Drug Allergies Allergy Unverified 12/09/20 16:13 General Stated Complaint: Orthopedic MARJ: 4 Review of Systems Narrative: 6 systems reviewed and unremarkable except what is marked below. Musculoskeletal Musculoskeletal: Reports as per HPI, Reports deformity, Reports arthralgias, Reports joint swelling, Reports limited range of motion and Denies numbness Integumentary/Breasts Skin/Breast: Denies unusual bruising and Denies wounds Neurologic Neurologic: Denies numbness PFSH All Active Problems (Updated 05/28/23 @ 10:55 by Richie Doyle NP) Fracture of lateral malleolus of right fibula (Acute) Hearing loss (Acute) Hyperlipidemia (Acute) RLS (restless legs syndrome) (Acute) Peripheral sensory neuropathy due to type 2 diabetes mellitus (Acute) Depression (Chronic) Hypothyroidism (Chronic) Obesity (Chronic) Type 2 diabetes mellitus (Acute) Insomnia (Acute) Medical History Carpal tunnel syndrome, bilateral Right ECTR on 10/25/2018 Discharge planning issues Fatigue GERD (gastroesophageal reflux disease) Giant cell tumor tendon History of colon polyps History of positive PPD Hypothyroid Iliotibial band syndrome Mass of left parotid gland Multinodular goiter Neoplasm of parotid gland OD (overdose of drug) UTI (urinary tract infection) Surgical History 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 on 10/25/2018 H/O thyroidectomy History of carpal tunnel surgery of right wrist DOS: 10/25/18 Right ECTR Social History Smoking/Tobacco Use Status: Never Smoking risk assessment performed?: Yes Alcohol Intake: never Drug use: Never Substance use type: does not use Housing: house Current gender identity: female Exam Const General: cooperative, no acute distress and not ill appearing Orientation: alert, awake and oriented x3 HENMT Mouth: moist mucous membranes Resp Effort & Inspection: normal respiratory effort, able to speak in complete sentences and no respiratory distress Cardio Rate: regular rate Rhythm: regular rhythm Pulses: normal peripheral pulses Skin General skin exam: no rashes or lesions noted Neuro General: patient alert, patient awake, patient oriented x3, moves all extremities and no focal motor deficits Sensory Exam: no sensory deficits noted Extrem General: normal exam except as noted Right lower extremity: ankle Details: tenderness Location: of the lateral malleolus, swelling Details: laterally and abnormal ROM Details: pain with active ROM Details: with eversion; no abrasions, no ecchymosis and no crepitus Course Vital Signs Vital signs: Vital Signs Temperature 36.8 C 05/28/23 09:53 Pulse 80 05/28/23 09:53 Respiratory Rate 18 05/28/23 09:53 Blood Pressure 126/78 05/28/23 09:53 Pulse Oximetry 99 05/28/23 09:53 Temperature 36.8 C 05/28/23 09:53 Temperature Source Oral 05/28/23 09:53 Pulse 80 05/28/23 09:53 Respiratory Rate 18 05/28/23 09:53 Respiratory Effort Normal, Non-Labored 05/28/23 09:53 Blood Pressure 126/78 05/28/23 09:53 Blood Pressure Position Sitting 05/28/23 09:53 Pulse Oximetry 99 05/28/23 09:53 Oxygen Delivery Method Room Air 05/28/23 09:53 Oxygen Flow Rate 0 05/28/23 09:53 Procedures Orthopedic Splinting/Casting Injury #1: Side: right Lower Extremity Injury Location: ankle Lower Extremity Immobilizer: posterior splint and stirrup splint Other Orthopedic Equipment: crutches
[2023-05-28 11:37] VITALS: BP 126/80; PULSE 70; RESP 18; TEMP 36.8; O2SAT 99
--- NOTE | 2023-06-02 08:13 | NUR.NOTE ---
Nursing Note:in chart because pt called and said she removed her splint due to it being wet and wanted directions
== END 2023-05-28 11:39 | disposition home or self-care (01) ==
PROVIDERS: Emergency Provider Nurse Practitioner Family; PCP Family Medicine
DX: S82.61XA Displaced fracture of lateral malleolus of right fibula, initial encounter for closed fracture (principal); W01.0XXA Fall on same level from slipping, tripping and stumbling without subsequent striking against object, initial encounter
CPT/HCPCS: 29515; 99283; 73610

== ENCOUNTER 2023-06-01 15:26 | Outpatient (CLI) | payer MEDICARE, SELFPAY ==
[2023-06-01 22:25] LABS: CEA 3.8 ng/mL (See Note)
[2023-06-02 11:59] LABS: CA 125 10 U/mL (<30)
[2023-06-02 13:04] LABS: CA 19-9 26 U/mL (<35)
== END 2023-06-01 15:27 | disposition home or self-care (01) ==
LOC: LBO 15:28
PROVIDERS: PCP Family Medicine; Visit Provider Obstetrics & Gynecology
DX: R19.00 Intra-abdominal and pelvic swelling, mass and lump, unspecified site (principal)
CPT/HCPCS: 36415; 86304; 82378; 86301

== ENCOUNTER 2023-06-07 14:54 | Outpatient (CLI) | payer MEDICARE, SELFPAY ==
--- NOTE | 2023-06-07 14:30 | DI.RAD_ITS ---
Exam(s) XR ANKLE RT COMPLETE EXAM: XR ANKLE RT COMPLETE CLINICAL HISTORY: F/U FRACTURE. TECHNIQUE: 2D digital imaging was performed of the right ankle. Three images were obtained. AP, la teral and oblique views were obtained. COMPARISON: CR XR ANKLE RT COMPLETE from 05/28/2023 FINDINGS: BONES: There has been no change in alignment of the distal fibular fracture. There is a small planta r calcaneal spur. There is an enthesophyte at the posterior calcaneus. No new fractures identified. No bony destructive lesion is seen. JOINTS: The ankle mortise is normally aligned. SOFT TISSUE: Soft tissue swelling about the ankle laterally. IMPRESSION: Stable distal fibular fracture. DATA REPOSITORY: RADIATION DOSE DELIVERED:
== END 2023-06-07 14:55 | disposition home or self-care (01) ==
LOC: DIORS 14:54
PROVIDERS: PCP Family Medicine; Referring Provider Family Medicine; Visit Provider Physician Assistant
DX: S82.61XA Displaced fracture of lateral malleolus of right fibula, initial encounter for closed fracture (principal); X58.XXXA Exposure to other specified factors, initial encounter
CPT/HCPCS: 99213; 73610

== ENCOUNTER 2023-06-21 16:04 | Outpatient (CLI) | payer MEDICARE, SELFPAY ==
--- NOTE | 2023-06-21 16:39 | DI.RAD_ITS ---
Exam(s) XR KNEE LT 3V AP,LAT,FABIAN EXAM: XR KNEE LT 3V AP,LAT,FABIAN CLINICAL HISTORY: pain. TECHNIQUE: 2D digital imaging was performed. Three views. COMPARISON: CR XR KNEE RT 3V AP,LAT,FABIAN from 09/17/2022 FINDINGS: BONES: No acute fracture is present. No bony destructive lesion is seen. Enthesophyte at quadriceps insertion on patella. JOINTS: Joint spaces are maintained. The knee is normally aligned. No joint effusion is seen. SOFT TISSUE: Normal. IMPRESSION: Patellar enthesophyte. DATA REPOSITORY: RADIATION DOSE DELIVERED:
--- NOTE | 2023-06-21 16:39 | DI.RAD_ITS ---
Exam(s) XR ANKLE RT 2V EXAM: XR ANKLE RT 2V INDICATION: pain. COMPARISON: CR XR ANKLE RT COMPLETE from 06/07/2023 TECHNIQUE: 2D digital imaging was performed. Two views. FINDINGS: there has been no change in the alignment of the distal fibular fracture. There is adjacent soft tis mary swelling. No ankle mortise widening is demonstrated. Heel spurs are again noted. DATA REPOSITORY: RADIATION DOSE DELIVERED:
== END 2023-06-21 16:05 | disposition home or self-care (01) ==
LOC: DIORS 16:04
PROVIDERS: PCP Family Medicine; Referring Provider Family Medicine; Visit Provider Student in an Organized Health Care Education/Training Program
DX: X58.XXXA Exposure to other specified factors, initial encounter; M17.12 Unilateral primary osteoarthritis, left knee; S82.61XA Displaced fracture of lateral malleolus of right fibula, initial encounter for closed fracture
CPT/HCPCS: 20610; 73562; 73600; J1040

== ENCOUNTER 2024-04-13 18:18 | Outpatient (REF) | payer MEDICARE, SELFPAY ==
[2024-04-13 21:02] LABS: HCT 37.2 % (36.0-46.0); HGB 11.9 g/dL (11.2-15.7); MCH 28.1 pg (27.0-33.0); MCV 88 fL (80-95); MPV 10.5 fL (8.0-11.0); Platelet Count 282 10^3/uL (130-400); RBC 4.23 10^6/uL (3.93-5.22); RDW-SD 42.1 fL; WBC 6.11 10^3/uL (4.4-10.8)
[2024-04-13 21:25] LABS: COMMENT (LAB VIEW ONLY) 98.28 mg/dL; Microalb ug/mg Crea 13.1 ug/mg Cr
[2024-04-13 21:26] LABS: ALT 75 U/L (14-59); AST 46 U/L (15-37); Albumin 3.8 g/dL (3.4-5.0); Alkaline Phosphatase 110 U/L (46-116); Anion Gap 8.2 mmol/L (3-11); BUN 8 mg/dL (7-18); Bilirubin, Total 0.4 mg/dL (0.2-1.0); CO2 27.8 mmol/L (21.0-32.0); CREATININE 0.7 mg/dL (0.55-1.02); Calcium 8.4 mg/dL (8.5-10.1); Chloride 105 mmol/L (98-107); Estimated GFR 92.41 (mL/min/1.73m2); Glucose 238 mg/dL (74-106); Potassium 4.3 mmol/L (3.5-5.1); Sodium 141 mmol/L (136-145); TSH (W/Ref FT4) 3.89 uIU/mL (0.36-3.74); Total Protein 6.9 g/dL (6.4-8.2)
[2024-04-13 21:47] LABS: FREE T4 1.01 ng/dL (0.76-1.46)
== END 2024-04-13 18:19 | disposition home or self-care (01) ==
LOC: NCHCN 18:18
PROVIDERS: PCP Family Medicine; Visit Provider Family Medicine
DX: E11.9 Type 2 diabetes mellitus without complications (principal)
CPT/HCPCS: 80053; 85027; 82043; 82570; 84439; 84443

== ENCOUNTER 2024-11-02 15:35 | Outpatient (CLI) | payer MEDICARE, SELFPAY ==
--- NOTE | 2024-11-02 14:15 | DI.RAD_ITS ---
Exam(s) XR WRIST LT COMPLETE EXAM: XR WRIST LT COMPLETE CLINICAL HISTORY: wrist pain and swelling. TECHNIQUE: 2D digital imaging was performed. COMPARISON: No exams were available for comparison FINDINGS: 3 views No evidence of acute fracture or dislocation nor significant ulnar variance. Scaphoid and scapholuna te distance are normal. There are mild degenerative changes at the 1st carpometacarpal joint and tri scaphe articulation. No osseous lesions. No abnormal soft tissue densities. IMPRESSION: Mild degenerative changes as above. DATA REPOSITORY: RADIATION DOSE DELIVERED:
== END 2024-11-02 15:36 | disposition home or self-care (01) ==
LOC: DIORS 15:35
PROVIDERS: PCP Family Medicine; Referring Provider Family Medicine; Visit Provider Student in an Organized Health Care Education/Training Program
DX: M65.4 Radial styloid tenosynovitis [de Quervain]
CPT/HCPCS: 20550; J1010; 73110

== ENCOUNTER 2024-12-12 13:58 | Outpatient (REF) | payer MEDICARE, SELFPAY ==
[2024-12-12 16:14] LABS: TSH (W/Ref FT4) 0.74 uIU/mL (0.36-3.74)
== END 2024-12-12 13:59 | disposition home or self-care (01) ==
LOC: NCHCN 13:58
PROVIDERS: PCP Family Medicine; Visit Provider Family Medicine
DX: E03.9 Hypothyroidism, unspecified (principal)
CPT/HCPCS: 84443

== ENCOUNTER 2025-05-07 15:44 | Outpatient (REF) | payer MEDICARE, SELFPAY ==
[2025-05-07 21:45] LABS: ALT 60 U/L (14-59); AST 34 U/L (15-37); Albumin 3.8 g/dL (3.4-5.0); Alkaline Phosphatase 127 U/L (46-116); Anion Gap 7.7 mmol/L (3-11); BUN 14 mg/dL (7-18); Bilirubin, Total 0.4 mg/dL (0.2-1.0); CO2 27.3 mmol/L (21.0-32.0); CREATININE 0.8 mg/dL (0.55-1.02); Calcium 9.1 mg/dL (8.5-10.1); Calculated LDL 127 mg/dL (<100); Chloride 101 mmol/L (98-107); Cholesterol 222 mg/dL (<200); Estimated GFR 78.24 (mL/min/1.73m2); Ferritin 33 ng/mL (8-252); Glucose 132 mg/dL (74-106); HDL Cholesterol 66 mg/dL (>or=50); Potassium 4.4 mmol/L (3.5-5.1); Sodium 136 mmol/L (136-145); TSH 0.57 uIU/mL (0.36-3.74); Triglyceride 145 mg/dL (<150)
[2025-05-07 21:46] LABS: COMMENT (LAB VIEW ONLY) 14.59 mg/dL; Microalb ug/mg Crea 52.8 ug/mg Cr
== END 2025-05-07 15:45 | disposition home or self-care (01) ==
LOC: NCHCN 15:44
PROVIDERS: PCP Family Medicine; Visit Provider Family Medicine
DX: E11.9 Type 2 diabetes mellitus without complications (principal); E78.5 Hyperlipidemia, unspecified; E03.9 Hypothyroidism, unspecified; G25.81 Restless legs syndrome
CPT/HCPCS: 80053; 80061; 82043; 82570; 82728; 84443

== ENCOUNTER 2025-09-02 11:19 | Emergency (ER) | payer MEDICARE, SELFPAY ==
[2025-09-02 11:24] VITALS: BP 151/73; PULSE 65; RESP 18; TEMP 36.6; O2SAT 97
--- NOTE | 2025-09-02 11:45 | DI.CT_ITS ---
Exam(s) CT HEAD WO/W FACIAL W EXAM: CT HEAD WO/W FACIAL W CLINICAL HISTORY: left retro orbital pain. TECHNIQUE: Imaging Protocol: Axial computed tomography images with coronal and sagittal reformatted images were created and reviewed COMPARISON: CT CT HEAD CERVICAL SPINE WO from 12/09/2020 FINDINGS: CT Head: Ventricles and Extra axial spaces: Normal in size and morphology for the patient's age. Hemorrhage: None. Cerebral parenchyma: Normal. Midline shift: None. Brainstem/Cerebellum: Normal. Calvarium: Normal. Visualized Paranasal sinuses/Mastoids: Clear. Soft Tissues: Unremarkable. CT Face: Facial Bones: No fracture is noted in facial bones. Sinuses and Mastoids: Unremarkable. Globes, extraocular muscles, optic nerves and retrobulbar fat: Normal. Upper aerodigestive tract: Normal. Mandible and bilateral temporomandibular joints: Normal. Soft tissues: Question of mild swelling around the left superior orbital region. No evidence of abnormal edema or soft tissue density within the orbits. The globes appear symmetric. Extraocular muscles and optic nerves appear symmetric. Left parotid mass again noted. This was present on the previous exam of 2000. Normal size lymph nodes in the neck bilaterally. Vasculature: Visualized portions of the carotid and vertebral arteries are normal in diameter and show no significant atherosclerotic changes. No evidence of dissection. IMPRESSION: 1. No acute intracranial process. 2. Mild swelling in the left superior periorbital fat.. No intraconal abnormality. 3. Roughly stable left parotid mass since 2020. The preliminary [facility] report was reviewed. RADIATION DOSE DELIVERED: Total DLP DATA REPOSITORY: All CT scans at this facility are submitted to the National Radiology Data Registry (NRDR) Dose Index Registry (DIR) with the [employer] (A[employer]). RADIATION OPTIMIZATION: All CT scans at this facility use at least one of these dose optimization techniques: automated exposure control; mA and/or kV adjustment per patient size (includes targeted exams where dose is matched to clinical indication); or iterative reconstruction. CONTRAST MATERIAL: Intravenous: Omnipaque 350 Contrast volume:100 ml
[2025-09-02 12:10] LABS: Abs Immature Grans 0.03 10^3/uL (0.0-0.06); HCT 38.7 % (36.0-46.0); HGB 12.6 g/dL (11.2-15.7); Immature Grans % 0.5 %; MCH 27.5 pg (27.0-33.0); MCHC 32.6 % (32.0-36.0); MCV 85 fL (80-95); MPV 9.8 fL (8.0-11.0); Platelet Count 253 10^3/uL (130-400); RBC 4.58 10^6/uL (3.93-5.22); RDW 12.8 % (11.7-14.6); RDW-SD 39.2 fL; WBC 6.46 10^3/uL (4.4-10.8)
[2025-09-02] MEDS: ACETAMINOPHEN 500 MG/50 ML BAG 200 MG IVPB (12:22)
[2025-09-02 12:25] LABS: C-Reactive Protein < 0.50 mg/dL (<or=0.5)
[2025-09-02 12:27] LABS: ALT 31 U/L (14-59); AST 18 U/L (15-37); Albumin 3.8 g/dL (3.4-5.0); Alkaline Phosphatase 138 U/L (46-116); Anion Gap 7.6 mmol/L (3-11); BUN 9 mg/dL (7-18); Bilirubin, Total 0.3 mg/dL (0.2-1.0); CO2 30.4 mmol/L (21.0-32.0); Calcium 9.2 mg/dL (8.5-10.1); Chloride 103 mmol/L (98-107); Estimated GFR 95.31 (mL/min/1.73m2); Glucose 120 mg/dL (74-106); Potassium 4.5 mmol/L (3.5-5.1); Sodium 141 mmol/L (136-145); Total Protein 7.8 g/dL (6.4-8.2)
[2025-09-02] MEDS: Normal Saline Flush 10 ML SYR IVP ×2 (12:42→12:43)
[2025-09-02] MEDS: Normal Saline - Diluent 50 ML VIAL IJ (12:42)
[2025-09-02] MEDS: Omnipaque 350 MG/ML 100 ML BTL IJ (12:43)
[2025-09-02 13:55] VITALS: BP 158/78; PULSE 77; O2SAT 97
--- NOTE | 2025-09-02 14:51 | DI.[facility]_ITS ---
PROCEDURE INFORMATION: Exam: CT Head Without And With Contrast Exam date and time: 09/02/2025 12:31 PM Age: 70 years old Clinical indication: Other: Left retro orbital pain TECHNIQUE: Imaging protocol: Computed tomography of the head without and with contrast. Radiation optimization: All CT scans at this facility use at least one of these dose optimization techniques: automated exposure control; mA and/or kV adjustment per patient size (includes targeted exams where dose is matched to clinical indication); or iterative reconstruction. Contrast material: OMNI 350; Contrast volume: 100 ml; Contrast route: INTRAVENOUS (IV); COMPARISON: CT HEAD CERVICAL SPINE WO 12/09/2020 5:11 PM FINDINGS: Brain: Normal. No hemorrhage. Unremarkable white matter. No mass effect. Cerebral ventricles: No ventriculomegaly. Paranasal sinuses: Visualized sinuses are unremarkable. No fluid levels. Mastoid air cells: Visualized mastoid air cells are well aerated. Bones: Unremarkable. No acute fracture. Soft tissues: Unremarkable. IMPRESSION: No acute intracranial abnormality. PROCEDURE INFORMATION: Exam: CT Maxillofacial With Contrast Exam date and time: 09/02/2025 12:31 PM Age: 70 years old Clinical indication: Other: Left retro orbital pain TECHNIQUE: Imaging protocol: Computed tomography of the face with contrast. Radiation optimization: All CT scans at this facility use at least one of these dose optimization techniques: automated exposure control; mA and/or kV adjustment per patient size (includes targeted exams where dose is matched to clinical indication); or iterative reconstruction. Contrast material: OMNI 350; Contrast volume: 100 ml; Contrast route: INTRAVENOUS (IV); COMPARISON: MR ORBIT FACIAL NECK WO/W 07/10/2021 9:29 AM FINDINGS: Paranasal sinuses: No air-fluid levels. Orbital cavities: Orbits are normal. Globes are unremarkable. Bones: No acute fracture. Soft tissues: Mild left periorbital swelling. IMPRESSION: Mild left periorbital swelling/cellulitis. No CT evidence for orbital cellulitis No abscess/collection Dictated and Authenticated by: Albino Jane MD. Orderin Emory Dale MD
[2025-09-02] MEDS: Cephalexin 500 MG CAP, 4 CAPS/BTL PO (15:30)
[2025-09-02] MEDS: valACYclovir 1,000 MG TAB 2000 MG PO (15:30)
[2025-09-02 15:31] VITALS: BP 152/65; RESP 16; O2SAT 97
--- NOTE | 2025-09-02 18:37 | W.ED.GENAD ---
Discharge Plan Disposition Patient Disposition: Home Discharge Details Clinical Impression: Benjie Primary Care Provider: Nick Altamirano ED Provider: Suyapa Cat Home Meds and New Rx's Prescriptions: New cephalexin 500 mg capsule 500 mg PO Q6H 7 Days Qty: 28 0RF cephalexin 500 mg capsule 500 mg PO Q6H 7 Days Qty: 28 0RF valacyclovir [Valtrex] 1 gram tablet 1,000 mg PO TID Qty: 21 0RF prednisone 20 mg tablet 40 mg PO DAILY Qty: 10 0RF Continued atorvastatin 40 MG tablet 40 mg PO DAILY levothyroxine 150 MCG tablet 150 mcg PO DAILY oxybutynin chloride 15 MG tablet extended release 24hr 15 mg PO DAILY metformin 1,000 mg tablet 1,000 mg PO BID Januvia 100 mg tablet 100 mg PO DAILY duloxetine 60 mg capsule,delayed release(DR/EC) 90 mg PO DAILY ropinirole 2 mg tablet 2 mg PO QHS Rx Instructions: administer 1-3 hours before bedtime glipizide 5 mg tablet 2.5 mg PO DAILY omeprazole 20 mg capsule,delayed release(DR/EC) 20 mg PO DAILY calcium carb-D3-mag ox-zinc ox [Jaylan Mag Zinc Plus D3] 333 mg-133 unit -133 mg-5 mg Tablet 1 tab PO DAILY ibuprofen 600 mg tablet 600 mg PO TID PRNQty: 90 3RF acetaminophen 500 mg capsule 1,000 mg PO Q8H PRN (Reason: pain) Qty: 90 0RF Mounjaro 5 mg/0.5 mL pen injector 0.5 mg SUBCUT .weekly Discharge Instructions Instructions: Shingles Additional Instructions: I suspect you have a shingles rash, CT of your head makes reassuring and you did not have obvious uptake on eye exam Please follow-up with ophthalmology for your scheduled appointment tomorrow and start taking the Valtrex 3 times daily Take prednisone as prescribed Take Tylenol as needed for pain stay away from elderly, infants, unvaccinated, does not have prior chickenpox as a likely still contagious Referrals: Nick Altamirano MD [Primary Care Provider, Medicine] Discharge Data Discharge Date/Time-TO BE ENTERED AT DEPARTURE: 09/02/25 15:29 HPI General Date/Time Provider Initiated Documentation: 09/02/25 11:29. HPI Narrative: This 70-year-old female presents with report rash to her left forehead and scalp. She describes the rash as painful. She also reports some pain over her left eye. Denies any vision change. This started 4 days ago. She has not taken any medications or been evaluated for this. Denies any neck pain or fever or chills. Denies any change in vision. Related Data Home Medications ?Medication ?Instructions ?Recorded ?Confirmed atorvastatin 40 mg tablet 40 mg PO DAILY 06/01/18 09/02/25 levothyroxine 150 mcg tablet 150 mcg PO DAILY 06/01/18 09/02/25 oxybutynin chloride 15 mg 15 mg PO DAILY 06/01/18 09/02/25 tablet,extended release 24 hr acetaminophen 500 mg capsule 1,000 mg (2 x 500 mg) PO Q8H PRN 10/25/18 09/02/25 pain #90 caps calcium 333 mg-vit D3 133 1 tab PO DAILY 10/25/18 09/02/25 unit-magnesium 133 mg-zinc 5 mg tablet (Jyalan Mag Zinc Plus D3) ibuprofen 600 mg tablet 600 mg PO TID PRN #90 tabs 10/25/18 09/02/25 omeprazole 20 mg capsule,delayed 20 mg PO DAILY 12/09/20 09/02/25 release duloxetine 60 mg capsule,delayed 90 mg PO DAILY 05/24/23 09/02/25 release metformin 1,000 mg tablet 1,000 mg PO BID 05/24/23 09/02/25 ropinirole 2 mg tablet 2 mg PO QHS 05/24/23 09/02/25 sitagliptin phosphate 100 mg 100 mg PO DAILY 05/24/23 09/02/25 tablet (Januvia) glipizide 5 mg tablet 2.5 mg PO DAILY 11/02/24 09/02/25 cephalexin 500 mg capsule 500 mg PO Q6H 7 days #28 caps 09/02/25 cephalexin 500 mg capsule 500 mg PO Q6H 7 days #28 caps 09/02/25 prednisone 20 mg tablet 40 mg (2 x 20 mg) PO DAILY #10 tabs 09/02/25 tirzepatide 5 mg/0.5 mL 0.5 mg subcut .weekly 09/02/25 09/02/25 subcutaneous pen injector (Laura) valacyclovir 1 gram tablet 1,000 mg PO TID #21 tabs 09/02/25 (Valtrex) Previous Rx's ?Medication ?Instructions ?Recorded acetaminophen 500 mg capsule 1,000 mg (2 x 500 mg) PO Q8H PRN 10/25/18 pain #90 caps ibuprofen 600 mg tablet 600 mg PO TID PRN #90 tabs 10/25/18 cephalexin 500 mg capsule 500 mg PO Q6H 7 days #28 caps 09/02/25 cephalexin 500 mg capsule 500 mg PO Q6H 7 days #28 caps 09/02/25 prednisone 20 mg tablet 40 mg (2 x 20 mg) PO DAILY #10 tabs 09/02/25 valacyclovir 1 gram tablet 1,000 mg PO TID #21 tabs 09/02/25 (Valtrex) Allergies Allergy/AdvReac Type Severity Reaction Status Date / Time No Known Drug Allergies Allergy Other (See Unverified 09/02/25 11:29 Comment) General Stated Complaint: RashLesion MARJ: 3 Exam Narrative Exam Narrative: Alert and oriented 70-year-old female in no acute distress rash, left side of face, papular, unilateral, extending to scalp and above eyebrow, left corneal exam with flourescein does not show dendrite, rash does not cross midline no palp no extraocular muscle tenderness and extraocular muscles intact. No evidence of intraoral involvement no nasal involvement, PERRLA Course Vital Signs Vital signs: Vital Signs Temperature 36.6 C 09/02/25 11:24 Pulse 65 09/02/25 11:24 Respiratory Rate 18 09/02/25 11:24 Blood Pressure 151/73 H 09/02/25 11:24 Pulse Oximetry 97 09/02/25 11:24 Temperature 36.6 C 09/02/25 11:24 Temperature Source Oral 09/02/25 11:24 Pulse 77 09/02/25 13:55 Respiratory Rate 16 09/02/25 15:31 Blood Pressure 152/65 H 09/02/25 15:31 Blood Pressure Mean 104 09/02/25 13:55 Blood Pressure Position Sitting 09/02/25 11:24 Pulse Oximetry 97 09/02/25 15:31 Oxygen Delivery Method Room Air 09/02/25 11:24 Oxygen Flow Rate 0 09/02/25 11:24 Pain Level 5 09/02/25 11:24 Lab/Test Results Lab/Test Results: Laboratory Tests Range/Units 09/02/25 12:00 WBC (4.4-10.8) 10^3/uL 6.46 RBC (3.93-5.22) 10^6/uL 4.58 Hgb (11.2-15.7) g/dL 12.6 Hct (36.0-46.0) % 38.7 MCV (80-95) fL 85 MCH (27.0-33.0) pg 27.5 MCHC (32.0-36.0) % 32.6 RDW (11.7-14.6) % 12.8 Plt Count (130-400) 10^3/uL 253 MPV (8.0-11.0) fL 9.8 Immature Gran % % 0.5 Neutrophils % % 63.8 Lymphocytes % % 19.8 Monocytes % % 7.7 Eosinophils % % 7.6 Basophils % % 0.6 Nucleated RBC % (0.0-0.3) % 0.0 Absolute Neutrophils (1.2-6.7) 10^3/uL 4.12 Absolute Lymphocytes (1.2-3.4) 10^3/uL 1.28 Absolute Monocytes (0.1-0.8) 10^3/uL 0.50 Absolute Eosinophils (0.0-0.7) 10^3/uL 0.49 Absolute Basophils (0.0-0.2) 10^3/uL 0.04 Sodium (136-145) mmol/L 141 Potassium (3.5-5.1) mmol/L 4.5 Chloride (98-107) mmol/L 103 Carbon Dioxide (21.0-32.0) mmol/L 30.4 Anion Gap (3-11) mmol/L 7.6 BUN (7-18) mg/dL 9 Creatinine (0.55-1.02) mg/dL 0.6 Est GFR (CKD-EPI 2020) (mL/min/1.73m2) 95.31 Glucose (74-106) mg/dL 120 H Calcium (8.5-10.1) mg/dL 9.2 Total Bilirubin (0.2-1.0) mg/dL 0.3 AST (15-37) U/L 18 ALT (14-59) U/L 31 Alkaline Phosphatase (46-116) U/L 138 H C-Reactive Protein (<or=0.5) mg/dL < 0.50 Total Protein (6.4-8.2) g/dL 7.8 Albumin (3.4-5.0) g/dL 3.8 Medical Decision Making results: ct head and facial does not display acute abnormality per radiology interpretation and my review, labs cbc, cmp, crp reviewed and without acute abnormality, visual acuity 20/40 R, 20/200 L pt states baseline secondary to lens, left orbital pressure 14 assessment and plan: Patient reports symptomatic administration. Patient will be placed on Valtrex 3 times daily and prednisone. Patient has an appointment should be tomorrow she is encouraged to keep this appointment but to make her aware she has likely shingles. As a precaution secondary to history of diabetes I did also start Keflex as these are not typical lesions, presentation is similar for shingles. No dendrite visualized today. Recheck with ophthalmology tomorrow. Discharged home in stable condition with stable vitals, aware that prednisone likely cause her blood glucose to increase temporarily PFSH All Active Problems (Updated 09/02/25 @ 15:10 by MARY GRACE Malcolm) Shingles (Acute) De Quervain's tenosynovitis, left (Acute) Osteoarthritis of left knee (Acute) DEPO MEDROL 06/21/23 Pelvic mass in female (Acute) 5 cm calcified right pelvic mass noted on CT, and ultrasound. Labs and referral to gynecologic oncology placed Hearing loss (Acute) Hyperlipidemia (Acute) RLS (restless legs syndrome) (Acute) Peripheral sensory neuropathy due to type 2 diabetes mellitus (Acute) Depression (Chronic) Hypothyroidism (Chronic) Obesity (Chronic) Type 2 diabetes mellitus (Acute) Insomnia (Acute) Medical History History of colon polyps Neoplasm of parotid gland Iliotibial band syndrome UTI (urinary tract infection) Mass of left parotid gland Discharge planning issues OD (overdose of drug) History of positive PPD Multinodular goiter Fatigue Carpal tunnel syndrome, bilateral Right ECTR on 10/25/2018 Giant cell tumor tendon GERD (gastroesophageal reflux disease) Hypothyroid Surgical History H/O thyroidectomy History of carpal tunnel surgery of right wrist DOS: 10/25/18 Right ECTR 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 on 10/25/2018 Social History Smoking/Tobacco Use Status: Never Smoking risk assessment performed?: Yes Alcohol Intake: never Drug use: Never Substance use type: does not use Housing: house Current gender identity: female Do you feel safe at home: Yes Do you feel safe in your relationship?: Yes History History 0 Para Hx # Term Pregnancies Multiple births Hx # Pregnancies Ectopic pregnancies AB induced Hx Number of Living Children AB spontaneous
== END 2025-09-02 15:29 | disposition home or self-care (01) ==
PROVIDERS: Emergency Provider Physician Assistant; PCP Family Medicine
DX: B02.9 Zoster without complications (principal)
CPT/HCPCS: 36415; 80053; 96365; 99284; 70470; 70487; 85025; 86140; 99283; J0131; J3490

== ENCOUNTER 2025-09-06 03:39 | Outpatient (CLI) | payer MEDICARE, SELFPAY ==
--- NOTE | 2025-09-06 | DI.DEXA_ITS ---
Exam(s) XR DEXA BONE DENSITY W/WO RUTH EXAM: XR DEXA BONE DENSITY W/WO RUTH CLINICAL HISTORY: ASYMPTOMATIC MENOPAUSAL STATE Z78.0 SCREENING OSTEOPOROSIS TECHNIQUE: HoloNatanael Ulien Horizon C densitometer analysis of left hip, lumbar spine and left forearm. Lateral survey image of the thoracic and lumbar spine. COMPARISON: CR RT HIP COMPLETE AP PELVIS from 11/22/2014 FINDINGS: Lateral view of the thoracic and lumbar spine shows no evidence of compression fractures. Bone mineral density measurements of the lumbar spine correspond to a total T- score of 0.1, in the normal range. Bone mineral density measurements of the left hip correspond to a total T-score of 0.3. The femoral neck T-score is -0.4, in the normal range. Theleft forearm bone mineral density measurements correspond to a T-score of the distal 3rd of 0.2, in the normal range. IMPRESSION: Normal bone mineral density.
== END 2025-09-06 03:59 ==
LOC: DI 03:40
PROVIDERS: PCP Family Medicine; Visit Provider Family Medicine
DX: Z78.0 Asymptomatic menopausal state (principal)
CPT/HCPCS: 77080